=== PATIENT | male | born 1945 | race American Indian/Alaskan Native ===

== ENCOUNTER 2016-12-12 05:42 | Inpatient (IN) | payer MEDICARE ==
[2016-12-12] MEDS ORDERED: ATIVAN ONE (06:09)
[2016-12-12] MEDS ORDERED: ATIVAN IV ONE (06:36)
--- NOTE | 2016-12-12 06:56 | Cat Scan Report ---
FINAL REPORT PROCEDURE: CT HEAD/BRAIN WO CON TECHNIQUE: Computerized tomography of the head was performed without contrast material. HISTORY: Seizure COMPARISON: 08/06/2016 FINDINGS: Skull and scalp: Normal. Paranasal sinuses: Normal. Ventricles and subarachnoid spaces: Normal. Cerebrum: No evidence of hemorrhage, acute infarction or mass. Moderate atrophy and periventricular deep white matter changes. There is an area of encephalomalacia in the posterior occipital lobe on the left, this is consistent with previous infarction.. Cerebellum and brainstem: There is a small 4 millimeter area of hypoattenuation in the left libby consistent with previous lacunar infarction.. Vasculature: Normal. Comments: Findings have not changed since prior exam.. IMPRESSION: There is no evidence of an acute intracranial hemorrhage, hematoma or infarction. Moderate atrophy and periventricular deep white matter changes are noted. 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 There is an old lacunar infarction of the left libby.
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
[2016-12-12 07:00] LABS: Urine Drugs of Abuse Note Disclamer
[2016-12-12 07:24] LABS: Bilirubin,Urine NEG (Negative); Blood,Urine NEG (Negative); Granular Casts,Urine 11 /LPF; Ketones,Urine NEG (Negative); Leukocyte Esterase,Urine NEG (Negative); Mucus,Urine FEW /HPF; Nitrite,Urine NEG (Negative); Sperm,Urine 1+ /HPF (NP); Urobilinogen,Urine < 2.0 mg/dL (<2.0)
[2016-12-12 07:26] LABS: Basophils % (Auto) 0.4 % (0.0-1.8); Eosinophils % (Auto) 0.5 % (0.0-4.3); Hematocrit 40.5 % (35.5-45.6); Mean Corpuscular HGB Conc 32 % (32-34); Mean Corpuscular Hemoglobin 28 pg (28-32); Mean Corpuscular Volume 88 fl (84-94); Platelet Count 250 K/mm3 (140-440); Red Blood Count 4.62 M/mm3 (3.65-5.03); Red Cell Distribution Width 15.1 % (13.2-15.2); White Blood Count 8.7 K/mm3 (4.5-11.0)
[2016-12-12 07:30] LABS: BUN/Creatinine Ratio 7.33; Calcium 9.8 mg/dL (8.4-10.2); Chloride 96.3 mmol/L (98-107); Potassium 4.9 mmol/L (3.6-5.0)
[2016-12-12] MEDS ORDERED: KEPPRA 1,000 MG/NS 0.75% 100ML 1,000 MG/100 ML BAG IV ONE (07:47)
--- NOTE | 2016-12-12 08:09 | Admit Criteria Form ---
Admission Criteria Documentation: SEIZURE Clinical Indications for Admission to Inpatient Care (Place 'X' for any and all applicable criteria): Admission is indicated for seizure and ANY ONE of the following(1)(2)(3)(4)(5): [X ]I. Inpatient admission required rather than observation care (Also use Seizure: Observation Care Criteria as appropriate) because of ANY ONE of the following: [ X]a) Altered mental status that is severe or persistent [ ]b) New focal neurologic deficit that is severe or persistent [ ]c) Metabolic disorder (eg, hypoglycemia, hyponatremia) that is severe or persistent [ ]d) Recurrent seizure [ ]e) Outpatient antiseizure regimen cannot be established (eg , patient cannot tolerate medication, initiation requires inpatient care) [ ]f) Need for ongoing intravenous infusion of antiseizure medication [ ]g) Cardiac arrhythmias of immediate concern [ ]h) Cerebral bleeding, hydrocephalus, or vasospasm monitoring (14) [ ]i) Increased intracranial pressure or cerebral edema monitoring (15) [ ]j) Other treatment or monitoring requiring inpatient admission [ ]II. Status epilepticus [A] or repetitive seizures not controlled with emergent treatment (6)(8) [ ]III. Brain disorder (eg, tumor, edema, and hydrocephalus) that requiring monitoring or intervention available only at inpatient level of care. [ ]IV. Brain insult (eg, severe trauma, stroke, drug toxicity, or withdrawal) that requires monitoring or intervention available only at inpatient level of care (10)(11) Extended stay beyond goal length of stay may be needed for (22) [ ]a) Complications of status epilepticus [ ]b) Refractory status epilepticus [ ]c) Etiology-specific therapy for conditions such as MATERIAL CONTROL MANAGER infection, head injury,eclampsia, severe metabolic abnormalities, and brain tumor [ ]d) Residual neurologic damage, [ ]e) Initiation of significant change to anticonvulsant treatment [ ]f) Older patients (65 years or older) [ ]g) Patient requiring intubation (eg, to protect airway) The original [employer] [facility] content created by [employer] has been revised. The portions of the content which have been revised are identified through the use of italic text or in bold, and [facility] [employer] has neither reviewed nor approved the modified material. All other unmodified content is copyright [facility] [employer]. Please see references footnoted in the original [facility] edition 2016 Admission Criteria Met: Yes
[2016-12-12] MEDS ORDERED: KEPPRA 500 MG in D5W 100 ML IV ONE (11:11)
[2016-12-12] MEDS ORDERED: REGLAN PO PRN (11:12)
[2016-12-12] MEDS ORDERED: TYLENOL PO PRN (11:12)
[2016-12-12] MEDS ORDERED: SODIUM CHLORIDE FLUSH SYRINGE 10 ML IV PRN (11:12)
[2016-12-12] MEDS ORDERED: DULCOLAX PR PRN (11:12)
[2016-12-12] MEDS ORDERED: APRESOLINE IV PRN (11:12)
[2016-12-12] MEDS ORDERED: ZOFRAN IV PRN (11:12)
[2016-12-12] MEDS ORDERED: PHENERGAN PR PRN (11:12)
[2016-12-12] MEDS ORDERED: MILK OF MAGNESIA PO PRN (11:12)
[2016-12-12] MEDS ORDERED: NACL 0.9% 1000 ML 1,000 ML IV SCH (12:00)
--- NOTE | 2016-12-12 15:05 | History and Physical Report ---
History of Present Illness Date of admission: 12/12/16 08:09 Chief complaint: 71-year-old man with a past medical history of multiple strokes who resides at [facility] who was cents for new onset seizure. Of note he was witnessed by [facility] staff to have seizure descended last thing probably up to 25 minutes at a time the EMS arrived he was post ictal he was then brought to the ER and he had a second seizure lasting about 30 seconds in the ER as witnessed by the ER staff. Since being here he has been lethargic drowsy , nonverbal, has been gurgling. Past History Past Medical History: other (hypertension, coronary artery disease, history of nontraumatic subarachnoid hemorrhage in the past, history of multiple strokes) Past Surgical History: Other (exploratory laparoscopy) Social history: no significant social history Family history: no significant family history Medications and Allergies Allergies Allergy/AdvReac Type Severity Reaction Status Date / Time No Known Allergies Allergy Unverified 08/06/16 11:38 Home Medications Medication Instructions Recorded Confirmed Last Taken Type Aspirin [Aspirin TAB] 325 mg PO QDAY 08/06/16 12/12/16 1 Day Ago History 325 amLODIPine [Norvasc] 5 mg PO DAILY 08/06/16 12/12/16 1 Day Ago History 5 AtorvaSTATin [Lipitor] 40 mg PO HS #30 tablet 08/08/16 12/12/16 1 Day Ago Rx 40 Active Meds: Active Medications Acetaminophen (Tylenol) 650 mg PO Q4H PRN PRN Reason: Pain, Mild (1-3) Bisacodyl (Dulcolax) 10 mg [place] QDAY PRN PRN Reason: Constipation Hydralazine HCl (Apresoline) 5 mg IV Q6H PRN PRN Reason: Keep SBP between 160-185 mm Hg Sodium Chloride (Nacl 0.9% 1000 Ml) 1,000 mls @ 75 mls/hr IV DIRECT TONY Last Admin: 12/12/16 12:02 Dose: 75 mls/hr Levetiracetam 500 mg/ Dextrose 105 mls @ 400 mls/hr IV Q12HR TONY Magnesium Hydroxide (Milk Of Magnesia) 30 ml PO Q4H PRN PRN Reason: Constipation Metoclopramide HCl (Reglan) 10 mg PO Q6H PRN PRN Reason: Nausea And Vomiting Ondansetron HCl (Zofran) 4 mg IV Q8H PRN PRN Reason: N/V unrelieved by Reglan Promethazine HCl (Phenergan) 25 mg [place] Q6H PRN PRN Reason: Nausea And Vomiting Simvastatin (Zocor) 20 mg PO QHS TONY Sodium Chloride (Sodium Chloride Flush Syringe 10 Ml) 10 ml IV PRN PRN PRN Reason: LINE FLUSH Review of Systems ROS unobtainable: due to mental status Exam - Physical Exam Narrative exam: General: Appears ill HEENT: MMM, EOMI cardiac: S1-S2 heard lungs: Occasional rhonchi abdomen: soft, nontender, nondistended bowel sounds positive extremities: no edema clubbing or cyanosis Skin: no rash or lesion Neuro: Patient opens eyes to voice, but does not obey any commands he is not moving his extremities, he is gurgling, nonverbal, lethargic - Constitutional Vitals: Temp Pulse Resp BP Pulse Ox 97.8 F 82 24 102/54 99 12/12/16 05:55 12/12/16 06:02 12/12/16 06:02 12/12/16 06:02 12/12/16 06:02 Results - Labs CBC & Chem 7: 12/12/16 06:59 12/12/16 06:59 Labs: Laboratory Last Values WBC 8.7 K/mm3 (4.5-11.0) 12/12/16 06:59 RBC 4.62 M/mm3 (3.65-5.03) 12/12/16 06:59 Hgb 13.0 gm/dl (11.8-15.2) 12/12/16 06:59 Hct 40.5 % (35.5-45.6) 12/12/16 06:59 MCV 88 fl (84-94) 12/12/16 06:59 MCH 28 pg (28-32) 12/12/16 06:59 MCHC 32 % (32-34) 12/12/16 06:59 RDW 15.1 % (13.2-15.2) 12/12/16 06:59 Plt Count 250 K/mm3 (140-440) 12/12/16 06:59 Lymph % (Auto) 15.0 % (13.4-35.0) 12/12/16 06:59 [place] % (Auto) 5.7 % (0.0-7.3) 12/12/16 06:59 Eos % (Auto) 0.5 % (0.0-4.3) 12/12/16 06:59 Baso % (Auto) 0.4 % (0.0-1.8) 12/12/16 06:59 Lymph # 1.3 K/mm3 (1.2-5.4) 12/12/16 06:59 [facility] # 0.5 K/mm3 (0.0-0.8) 12/12/16 06:59 Eos # 0.0 K/mm3 (0.0-0.4) 12/12/16 06:59 Baso # 0.0 K/mm3 (0.0-0.1) 12/12/16 06:59 Seg Neutrophils % 78.4 % (40.0-70.0) H 12/12/16 06:59 Seg Neutrophils # 6.8 K/mm3 (1.8-7.7) 12/12/16 06:59 Sodium 137 mmol/L (137-145) 12/12/16 06:59 Potassium 4.9 mmol/L (3.6-5.0) 12/12/16 06:59 Chloride 96.3 mmol/L (98-107) L 12/12/16 06:59 Carbon Dioxide 13 mmol/L (22-30) L 12/12/16 06:59 Anion Gap 33 mmol/L 12/12/16 06:59 BUN 11 mg/dL (9-20) 12/12/16 06:59 Creatinine 1.5 mg/dL (0.8-1.5) 12/12/16 06:59 Estimated GFR 56 ml/min 12/12/16 06:59 BUN/Creatinine Ratio 7.33 % 12/12/16 06:59 Glucose 171 mg/dL (75-100) H 12/12/16 06:59 Calcium 9.8 mg/dL (8.4-10.2) 12/12/16 06:59 Urine Color Yellow (Yellow) 12/12/16 06:57 Urine Turbidity Clear (Clear) 12/12/16 06:57 Urine pH 6.0 (5.0-7.0) 12/12/16 06:57 Ur Specific [place] 1.011 (1.003-1.030) 12/12/16 06:57 Urine Protein 30 mg/dl mg/dL (Negative) 12/12/16 06:57 Urine Glucose (UA) Neg mg/dL (Negative) 12/12/16 06:57 Urine Ketones Neg mg/dL (Negative) 12/12/16 06:57 Urine Blood Neg (Negative) 12/12/16 06:57 Urine Nitrite Neg (Negative) 12/12/16 06:57 Urine Bilirubin Neg (Negative) 12/12/16 06:57 Urine Urobilinogen < 2.0 mg/dL (<2.0) 12/12/16 06:57 Ur Leukocyte Esterase Neg (Negative) 12/12/16 06:57 Urine WBC (Auto) 1.0 /HPF (0.0-6.0) 12/12/16 06:57 Urine RBC (Auto) 3.0 /HPF (0.0-6.0) 12/12/16 06:57 Hyaline Casts 16 /LPF 12/12/16 06:57 Granular Casts 11 /LPF 12/12/16 06:57 Urine Mucus Few /HPF 12/12/16 06:57 Urine Sperm 1+ /HPF (TOP COLLAR MAKER) 12/12/16 06:57 Urine Opiates Screen Presumptive negative 12/12/16 06:57 Urine Methadone Screen Presumptive negative 12/12/16 06:57 Ur Barbiturates Screen Presumptive negative 12/12/16 06:57 Ur Phencyclidine Scrn Presumptive negative 12/12/16 06:57 Ur Amphetamines Screen Presumptive negative 12/12/16 06:57 U Benzodiazepines Scrn Presumptive negative 12/12/16 06:57 Urine Cocaine Screen Presumptive negative 12/12/16 06:57 U Marijuana (THC) Screen Presumptive negative 12/12/16 06:57 Drugs of Abuse Note Disclamer 12/12/16 06:57 - Imaging and Cardiology CT Scan - head: image reviewed (no new acute abnormality seen) Assessment and Plan Assessment and plan: 71-year-old man who presents with new-onset seizures, and altered mental status 1. Status epilepticus Status post Ativan and Keppra. We'll continue Keppra twice a day. Ordered for EEG and MRI, neurology has been consulted 2. Toxic metabolic encephalopathy Mentation may be due to post ictal period, however given past medical history of strokes, and will be prudent to rule out an acute CVA. Follow-up MRI reports , neurology has been consulted, 3. Hypertension Allow permissive hypertension as patient is being worked up for stroke 4. Hyperlipidemia We'll continue statin when patient has cleared swallow evaluation,
--- NOTE | 2016-12-12 15:13 | Consultation ---
History of Present Illness Consult date: 12/12/16 Requesting physician: LENNY VAUGHAN Reason for Consult: seizure Chief complaint: AMS limits direct hx History of present illness: 71-year-old man with a past medical history of multiple strokes ? residual deficit but no Hx seizure brought to ED 12/12 early AM for witnessed suspected seizure. Duration reportedly 25 minutes but at a time the EMS arrived he was post ictal he was then brought to the ER and he had a second seizure lasting about 30 seconds in the ER as witnessed by the ER staff. AMS is constant but waxing and waning. There are no clear aggravating, relieving or temporal factors. Severity is such to limit consciousness with events. Past History Past Medical History: CAD, stroke, other (hypertension, coronary artery disease , history of nontraumatic subarachnoid hemorrhage in the past, history of multiple strokes) Past Surgical History: Other (exploratory laparoscopy) Social history: no significant social history, other (AMS limits) Family history: no significant family history, other (AMs limits) Medications and Allergies Allergies Allergy/AdvReac Type Severity Reaction Status Date / Time No Known Allergies Allergy Unverified 08/06/16 11:38 Home Medications Medication Instructions Recorded Confirmed Last Taken Type Aspirin [Aspirin TAB] 325 mg PO QDAY 08/06/16 12/12/16 1 Day Ago History 325 amLODIPine [Norvasc] 5 mg PO DAILY 08/06/16 12/12/16 1 Day Ago History 5 AtorvaSTATin [Lipitor] 40 mg PO HS #30 tablet 08/08/16 12/12/16 1 Day Ago Rx 40 Active Meds: Active Medications Acetaminophen (Tylenol) 650 mg PO Q4H PRN PRN Reason: Pain, Mild (1-3) Bisacodyl (Dulcolax) 10 mg [place] QDAY PRN PRN Reason: Constipation Hydralazine HCl (Apresoline) 5 mg IV Q6H PRN PRN Reason: Keep SBP between 160-185 mm Hg Sodium Chloride (Nacl 0.9% 1000 Ml) 1,000 mls @ 75 mls/hr IV DIRECT TONY Last Admin: 12/12/16 12:02 Dose: 75 mls/hr Levetiracetam 500 mg/ Dextrose 105 mls @ 400 mls/hr IV Q12HR TONY Magnesium Hydroxide (Milk Of Magnesia) 30 ml PO Q4H PRN PRN Reason: Constipation Metoclopramide HCl (Reglan) 10 mg PO Q6H PRN PRN Reason: Nausea And Vomiting Ondansetron HCl (Zofran) 4 mg IV Q8H PRN PRN Reason: N/V unrelieved by Reglan Promethazine HCl (Phenergan) 25 mg [place] Q6H PRN PRN Reason: Nausea And Vomiting Simvastatin (Zocor) 20 mg PO QHS TONY Sodium Chloride (Sodium Chloride Flush Syringe 10 Ml) 10 ml IV PRN PRN PRN Reason: LINE FLUSH Review of Systems ROS unobtainable: due to mental status Physical Examination - Vital Signs Vital Signs: Vital Signs Temp Pulse Resp BP Pulse Ox 97.8 F 77 22 102/54 97 12/12/16 05:55 12/12/16 05:55 12/12/16 05:55 12/12/16 05:55 12/12/16 05:55 - Constitutional General appearance: uncomfortable, acutely ill, chronically ill, older than stated age - EENT EENT: Present: ATNC, PERRL, mucous membranes dry, hearing intact, vision intact - Respiratory Respiratory: Present: chest non-tender, normal breath sounds, no respiratory distress - Cardiovascular Cardiovascular: Present: regular rate Extremities: Present: no peripheral edema bilatateraly, no clubbing, cyanosis, no inflammation, no ischemia or petechiae - Gastrointestinal Gastrointestinal: Present: soft, non-distended - Integumentary Integumentary: Present: normal - Neurologic Cranial nerve examination: PERRL, EOMI, V1/V2/V3 grossly intact, face symmetric , tongue midline, intact, intact shoulder shrug, intact cough reflex, Intact Vestibulo-ocular r, intact corneal reflex, normal palatal elevation Speech examination: other (slurred, follows commands, drowsystuporous, poor concentration) Sensorimotor examination: intact Motor examination - right side: 11/27: biceps, triceps, wrist flexion, wrist extension, research affiliate, hip flexors, knee extensors, dorsiflexion, toe extension (EHL) , plantarflexion Motor examination - left side: 4: biceps, triceps, wrist flexion, wrist extension, research affiliate, hip flexors, knee extensors, dorsiflexion, toe extension (EHL) , plantarflexion Detailed sensory examination: intact, light touch, pain Reflex and gait examination: intact Reflexes: 0: ankle, 2+: bicep, knee, tricep - Musculoskeletal Musculoskeletal: Present: no fluid collection, no pain, normal range of motion - Psychiatric Psychiatric: Present: cooperative, other (drowsy) Results - Laboratory Findings CBC and BMP: 12/12/16 06:59 12/12/16 06:59 Assessment and Plan 71 YO M Hx multiple prior strokes ? details/residual deficit but no Hx seizure brought to ED 12/12 early AM for witnessed reported GTC x 25 mins but then post ictal and then recurrent 30 sec GTC in ED. On my exam pt post-ictal w/ drowsy-stupor but following commands oriented to self w/o further recurrence. Unclear etiology for new onset seizure. 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 Plan and Recommendation: 1. Telemetry bed w/ Q4 hour neuro checks & Sz precautions 2. Brain imaging: MRI Brain +/- John Seizure Protocol 3. Routine awake and drowsy EEG 4. Labs: Serum/Urine Tox, UA/UCx, Electrolytes especially Na, Ca, Mg, and Glucose, TSH/Vit B12/Ammonia and correct as necessary 5. Cont Infectious work up/medical management for UTI, PNA, cellulitis, bacteremia, etc. 6. Avoid hyponatremia, hypo/hyper-calcemia, hypo/hyperglycemia, acidosis, hypoxia/hypoxemia, hypercarbia/hypercapnia 7. Avoid institution of any psychoactive medications (e.g. antihistamines, anticholinergics, BZD, hypnotics, opiates) as able unless low doses of low potency antipsychotic needed for behavioral issues complicating medical care 8. AED therapy: Continue Keppra 5000mg BID 9. Avoid meds that can lower sz threshold e.g. Tramadol, fluroquinolones, carbapenems 10. Given unknown EtOH Hx would supplement Thiamine, Folate and B12 11. Pt advised of [place] driving regulations: report date of presumed Seizure/ unexplained loss of consciousness/awareness spell to [facility], refrain from operating a motor vehicle for 6 months after this date, and avoid unsupervised activity particularly around water or heights 12. Neurologically clear for discharge once resolved fully to baseline w/o recurrent seizure for 24 hrs.
--- NOTE | 2016-12-12 15:34 | XRay Report ---
AP CHEST: HISTORY: Short of breath AP view of the chest demonstrates a normal mediastinal and cardiac contour with clear lungs and normal bony and soft tissue structures. IMPRESSION: Unremarkable AP chest.
[2016-12-12] MEDS: ZOCOR PO SCH (23:45)
[2016-12-12] MEDS: KEPPRA 500 MG in D5W 100 ML IV SCH (23:59)
[2016-12-13] MEDS: KEPPRA 500 MG in D5W 100 ML IV SCH ×2 (11:01→21:37)
--- NOTE | 2016-12-13 11:23 | Electroencephalogram Report ---
Electroencephalogram EEG Date of exam: 12/12/16 History: 71 YO M hx stroke p/w seizure x 2. Impression: Abnormal awake and sleep 20 minute routine EEG. There are findings to suggest mild-moderate nonspecific cerebral dysfunction. There are no findings to suggest cortical irritability, epileptiform discharges or electrographic seizures. Description: The waking background shows an inappropriate organization with poorly-defined anterior posterior voltage and frequency gradients. Posteriorly, there is a poorly-developed mixed theta and alpha frequency background which is symmetrical and bilaterally reactive. There is no clear variability. There are symmetric appearing poorly formed sleep spindles and K-complexes. . Throughout, the recording there are no epileptiform abnormalities, focal or lateralizing features, or significant interhemispheric findings. Interpretation: This is a digitally acquired 21-channel electroencephalogram. Both bipolar and referential montages were used in interpretation. Electrodes were placed in accordance with the International 10-20 system.
--- NOTE | 2016-12-13 11:26 | Progress Note ---
Assessment and Plan 71 YO M Hx multiple prior strokes ? details/residual deficit as he is a poor historian but no Hx seizure brought to ED 12/12 early AM for witnessed reported GTC x 25 mins but then post ictal and then recurrent 30 sec GTC in ED. On my exam initial exam pt post-ictal w/ drowsy-stupor but following commands oriented to self by nodding. On 12/13 pt awake alert oriented and back to baseline w/ R visual field deficit and R sided weakness which he confirms is baseline. No further Sz recurrence. Unclear etiology for new onset seizure. 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 EEG mild-mod nonspecific diffuse cerebral dysfunction but no IEDs/Sz Plan and Recommendation: 1. Telemetry bed w/ Q4 hour neuro checks & Sz precautions 2. Brain imaging: MRI Brain +/- John Seizure Protocol 3. Labs: Serum/Urine Tox, UA/UCx, Electrolytes especially Na, Ca, Mg, and Glucose, TSH/Vit B12/Ammonia and correct as necessary 4. Cont Infectious work up/medical management for UTI, PNA, cellulitis, bacteremia, etc. 5. Avoid hyponatremia, hypo/hyper-calcemia, hypo/hyperglycemia, acidosis, hypoxia/hypoxemia, hypercarbia/hypercapnia 6. Avoid institution of any psychoactive medications (e.g. antihistamines, anticholinergics, BZD, hypnotics, opiates) as able unless low doses of low potency antipsychotic needed for behavioral issues complicating medical care 7. AED therapy: Continue Keppra 500mg BID 8. Avoid meds that can lower sz threshold e.g. Tramadol, fluroquinolones, carbapenems 9. Given unknown EtOH Hx would supplement Thiamine, Folate and B12 10. Pt advised of [place] driving regulations: report date of presumed Seizure/ unexplained loss of consciousness/awareness spell to [facility], refrain from operating a motor vehicle for 6 months after this date, and avoid unsupervised activity particularly around water or heights 11. Neurologically clear for discharge if continues to be @ baseline w/o recurrent seizure and MRI Brain w/o acute findings. Subjective Date of service: 12/13/16 Principal diagnosis: seizure, history stroke Interval history: awake, alert, no recurrent seizure, pt is a poor historian Objective - General Apperance Constitutional: comfortable, chronically ill, older than stated age - EENT EENT: ATNC, PERRL, mucous membranes moist, hearing intact, vision intact - Respiratory Respiratory: chest non-tender, normal breath sounds, no respiratory distress - Cardiovascular Cardiovascular: regular rate Extremities: no peripheral edema bilat, no clubbing, cyanosis, no inflammation, no ischemia or petechiae - Gastrointestinal Gastrointestinal: normoactive bowel sounds, soft, non-distended - Integumentary Integumentary: normal - Neurologic Cranial nerve examination: PERRL, EOMI, V1/V2/V3 grossly intact, tongue midline , intact, intact shoulder shrug, intact cough reflex, Intact Vestibulo-ocular r , intact corneal reflex, facial droop (slight on R), other (R visual field deficit) Speech examination: intact Motor examination - right side: 3/5: biceps, triceps, wrist flexion, wrist extension, window glass installer, 4/5: hip flexors, knee extensors, dorsiflexion, toe extension ( EHL), plantarflexion Motor examination - left side: 5/5: biceps, triceps, wrist flexion, wrist extension, window glass installer, hip flexors, knee extensors, dorsiflexion, toe extension (EHL) , plantarflexion Detailed sensory examination: intact, light touch, temperature Reflex and gait examination: Babinski's sign (on R) Reflexes: 0: ankle, 3+: bicep (on R), knee, tricep - Musculoskeletal Musculoskeletal: no fluid collection, no pain, normal range of motion - Psychiatric Psychiatric: mood/affect appropriate, cooperative - Laboratory Findings CBC and BMP: 12/12/16 06:59 12/12/16 06:59
[2016-12-13] MEDS ORDERED: PNEUMOVAX 23 IM ONE (12:00)
--- NOTE | 2016-12-13 14:13 | Magnetic Resonance Report ---
MRI scan of brain: History: Stroke. Technique: Multiplanar, multisequence images were obtained without contrast injection. Findings: No evidence of restricted diffusion. Chronic left occipital infarct without interval change. No acute ischemia or hemorrhage. Periventricular area of hyperintensity with subcortical areas of hyperintensity suggestive of small vessel ischemic changes. Chronic lacunar infarct left cerebellum. No extra-axial fluid collection. Normal sinuses and mastoid air cells. Impression: No acute intracranial abnormality. Additional findings as detailed above.
--- NOTE | 2016-12-13 14:21 | Magnetic Resonance Report ---
MRA of brain: History: Stroke. Findings: There is atherosclerotic changes identified with narrowing of right and left middle cerebral arteries. No hemodynamically significant stenosis. No evidence of occlusion or aneurysm. Codominant vertebral artery with narrowing of the proximal basilar artery and adjacent vertebral arteries. Communicating vessels appears unremarkable. Impression: No hemodynamically significant stenosis or evidence of occlusion.
--- NOTE | 2016-12-13 14:44 | Progress Note ---
Assessment and Plan Assessment and plan: 71-year-old -[place] male with history of stroke presented to the emergency department for complaints of seizure episode, he had also with just generalized tonic-clonic seizures in the emergency department and after this the patient was postictal and confused. Status epilepticus - Patient is started on Keppra, no seizure episode after admission. EEG showed no active seizure. - Neurology consult appreciated - MRI and MRA showed no significant abnormality Toxic metabolic encephalopathy - Likely postictal - Patient is alert and oriented today Hypertension - Continue home medications Hyperlipidemia Continue his statin Prophylaxis Lovenox Disposition - Patient will be discharged tomorrow after monitoring him overnight History Interval history: Patient was seen and evaluated this morning, patient is alert and oriented. He has residual left leg weakness from his previous stroke. No seizure episode after admission. Hospitalist Physical - Physical exam Narrative exam: Not in cardiopulmonary distress. The patient appeared well nourished and normally developed. Vital signs as documented. Head exam is unremarkable. No scleral icterus . Neck is without jugular venous distension, thyromegaly, or carotid bruits. Lungs are clear to auscultation. Cardiac exam reveals regular rate and Rhythm. First and second heart sounds normal. No murmurs, rubs or gallops. Abdominal exam reveals normal bowel sounds, no masses, no organomegaly and no aortic enlargement. Extremities are nonedematous and both femoral and pedal pulses are normal. 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 Mild weakness of the right lower extremity compared to the left. - Constitutional Vitals: Temp Pulse Resp BP Pulse Ox 97.1 F L 87 20 144/68 99 12/13/16 08:00 12/13/16 08:00 12/13/16 08:00 12/13/16 08:00 12/12/16 06:02 Results - Labs CBC & Chem 7: 12/12/16 06:59 12/12/16 06:59 Labs: Laboratory Last Values WBC 8.7 K/mm3 (4.5-11.0) 12/12/16 06:59 RBC 4.62 M/mm3 (3.65-5.03) 12/12/16 06:59 Hgb 13.0 gm/dl (11.8-15.2) 12/12/16 06:59 Hct 40.5 % (35.5-45.6) 12/12/16 06:59 MCV 88 fl (84-94) 12/12/16 06:59 MCH 28 pg (28-32) 12/12/16 06:59 MCHC 32 % (32-34) 12/12/16 06:59 RDW 15.1 % (13.2-15.2) 12/12/16 06:59 Plt Count 250 K/mm3 (140-440) 12/12/16 06:59 Lymph % (Auto) 15.0 % (13.4-35.0) 12/12/16 06:59 [place] % (Auto) 5.7 % (0.0-7.3) 12/12/16 06:59 Eos % (Auto) 0.5 % (0.0-4.3) 12/12/16 06:59 Baso % (Auto) 0.4 % (0.0-1.8) 12/12/16 06:59 Lymph # 1.3 K/mm3 (1.2-5.4) 12/12/16 06:59 [place] # 0.5 K/mm3 (0.0-0.8) 12/12/16 06:59 Eos # 0.0 K/mm3 (0.0-0.4) 12/12/16 06:59 Baso # 0.0 K/mm3 (0.0-0.1) 12/12/16 06:59 Seg Neutrophils % 78.4 % (40.0-70.0) H 12/12/16 06:59 Seg Neutrophils # 6.8 K/mm3 (1.8-7.7) 12/12/16 06:59 Sodium 137 mmol/L (137-145) 12/12/16 06:59 Potassium 4.9 mmol/L (3.6-5.0) 12/12/16 06:59 Chloride 96.3 mmol/L (98-107) L 12/12/16 06:59 Carbon Dioxide 13 mmol/L (22-30) L 12/12/16 06:59 Anion Gap 33 mmol/L 12/12/16 06:59 BUN 11 mg/dL (9-20) 12/12/16 06:59 Creatinine 1.5 mg/dL (0.8-1.5) 12/12/16 06:59 Estimated GFR 56 ml/min 12/12/16 06:59 BUN/Creatinine Ratio 7.33 % 12/12/16 06:59 Glucose 171 mg/dL (75-100) H 12/12/16 06:59 Calcium 9.8 mg/dL (8.4-10.2) 12/12/16 06:59 Triglycerides 47 mg/dL (2-149) 12/13/16 04:35 Cholesterol 123 mg/dL (50-199) 12/13/16 04:35 LDL Cholesterol Direct 59 mg/dL (50-130) 12/13/16 04:35 HDL Cholesterol 55 mg/dL (40-59) 12/13/16 04:35 Cholesterol/HDL Ratio 2.23 % 12/13/16 04:35 Urine Color Yellow (Yellow) 12/12/16 06:57 Urine Turbidity Clear (Clear) 12/12/16 06:57 Urine pH 6.0 (5.0-7.0) 12/12/16 06:57 Ur Specific [place] 1.011 (1.003-1.030) 12/12/16 06:57 Urine Protein 30 mg/dl mg/dL (Negative) 12/12/16 06:57 Urine Glucose (UA) Neg mg/dL (Negative) 12/12/16 06:57 Urine Ketones Neg mg/dL (Negative) 12/12/16 06:57 Urine Blood Neg (Negative) 12/12/16 06:57 Urine Nitrite Neg (Negative) 12/12/16 06:57 Urine Bilirubin Neg (Negative) 12/12/16 06:57 Urine Urobilinogen < 2.0 mg/dL (<2.0) 12/12/16 06:57 Ur Leukocyte Esterase Neg (Negative) 12/12/16 06:57 Urine WBC (Auto) 1.0 /HPF (0.0-6.0) 12/12/16 06:57 Urine RBC (Auto) 3.0 /HPF (0.0-6.0) 12/12/16 06:57 Hyaline Casts 16 /LPF 12/12/16 06:57 Granular Casts 11 /LPF 12/12/16 06:57 Urine Mucus Few /HPF 12/12/16 06:57 Urine Sperm 1+ /HPF (REINFORCED IRONWORKER) 12/12/16 06:57 Urine Opiates Screen Presumptive negative 12/12/16 06:57 Urine Methadone Screen Presumptive negative 12/12/16 06:57 Ur Barbiturates Screen Presumptive negative 12/12/16 06:57 Ur Phencyclidine Scrn Presumptive negative 12/12/16 06:57 Ur Amphetamines Screen Presumptive negative 12/12/16 06:57 U Benzodiazepines Scrn Presumptive negative 12/12/16 06:57 Urine Cocaine Screen Presumptive negative 12/12/16 06:57 U Marijuana (THC) Screen Presumptive negative 12/12/16 06:57 Drugs of Abuse Note Disclamer 12/12/16 06:57 - Imaging and Cardiology MRI - head: image reviewed (no acute intracranial finding)
[2016-12-13] MEDS: ZOCOR PO SCH (21:37)
[2016-12-14 05:47] LABS: Basophils % (Auto) 0.4 % (0.0-1.8); Eosinophils % (Auto) 0.1 % (0.0-4.3); Hematocrit 36.6 % (35.5-45.6); Hemoglobin 11.9 gm/dl (11.8-15.2); Mean Corpuscular HGB Conc 33 % (32-34); Mean Corpuscular Hemoglobin 28 pg (28-32); Mean Corpuscular Volume 86 fl (84-94); Platelet Count 219 K/mm3 (140-440); Red Blood Count 4.25 M/mm3 (3.65-5.03); Red Cell Distribution Width 14.8 % (13.2-15.2)
[2016-12-14 06:05] LABS: BUN/Creatinine Ratio 11.66; Blood Urea Nitrogen 14 mg/dL (9-20); Calcium 8.7 mg/dL (8.4-10.2); Carbon Dioxide 25 mmol/L (22-30); Chloride 104.5 mmol/L (98-107); Glucose 107 mg/dL (75-100); Potassium 4.5 mmol/L (3.6-5.0); Sodium 143 mmol/L (137-145)
[2016-12-14 06:15] LABS: Anion Gap 18 mmol/L
--- NOTE | 2016-12-14 11:33 | Progress Note ---
Assessment and Plan Assessment and plan: 71-year-old -[place]isian male with history of stroke presented to the emergency department for complaints of seizure episode, he had also with just generalized tonic-clonic seizures in the emergency department and after this the patient was postictal and confused. Status epilepticus - Patient is started on Keppra, no seizure episode after admission. EEG showed no active seizure. - Neurology consult appreciated - MRI and MRA showed no significant abnormality Toxic metabolic encephalopathy/delirium - Likely postictal - Patient is confused Fall - on fall precaution - close follow up Hypertension - Continue home medications Hyperlipidemia Continue his statin Prophylaxis Lovenox Disposition - Will monitor him hence the patient is confused and at risk of fall History Interval history: Patient was seen and evaluated this morning, patient was confused and aggressive towards the nursing staff. He failed out of the bed. Saw the patient immediately and didn't hit his bed. doesn't need further work up. Hospitalist Physical - Physical exam Narrative exam: Not in cardiopulmonary distress. The patient appeared well nourished and normally developed. Vital signs as documented. Head exam is unremarkable. No scleral icterus . Neck is without jugular venous distension, thyromegaly, or carotid bruits. Lungs are clear to auscultation. Cardiac exam reveals regular rate and Rhythm. First and second heart sounds normal. No murmurs, rubs or gallops. Abdominal exam reveals normal bowel sounds, no masses, no organomegaly and no aortic enlargement. Extremities are nonedematous and both femoral and pedal pulses are normal. 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 Mild weakness of the right lower extremity compared to the left. - Constitutional Vitals: Temp Pulse Resp BP Pulse Ox 98 F 79 18 133/68 98 12/14/16 08:00 12/14/16 08:00 12/14/16 00:44 12/14/16 08:00 12/14/16 08:00 Results - Labs CBC & Chem 7: 12/14/16 05:11 12/14/16 05:11 Labs: Laboratory Last Values WBC 9.0 K/mm3 (4.5-11.0) 12/14/16 05:11 RBC 4.25 M/mm3 (3.65-5.03) 12/14/16 05:11 Hgb 11.9 gm/dl (11.8-15.2) 12/14/16 05:11 Hct 36.6 % (35.5-45.6) 12/14/16 05:11 MCV 86 fl (84-94) 12/14/16 05:11 MCH 28 pg (28-32) 12/14/16 05:11 MCHC 33 % (32-34) 12/14/16 05:11 RDW 14.8 % (13.2-15.2) 12/14/16 05:11 Plt Count 219 K/mm3 (140-440) 12/14/16 05:11 Lymph % (Auto) 13.8 % (13.4-35.0) 12/14/16 05:11 [place] % (Auto) 10.5 % (0.0-7.3) H 12/14/16 05:11 Eos % (Auto) 0.1 % (0.0-4.3) 12/14/16 05:11 Baso % (Auto) 0.4 % (0.0-1.8) 12/14/16 05:11 Lymph # 1.2 K/mm3 (1.2-5.4) 12/14/16 05:11 [place] # 0.9 K/mm3 (0.0-0.8) H 12/14/16 05:11 Eos # 0.0 K/mm3 (0.0-0.4) 12/14/16 05:11 Baso # 0.0 K/mm3 (0.0-0.1) 12/14/16 05:11 Seg Neutrophils % 75.2 % (40.0-70.0) H 12/14/16 05:11 Seg Neutrophils # 6.8 K/mm3 (1.8-7.7) 12/14/16 05:11 Sodium 143 mmol/L (137-145) 12/14/16 05:11 Potassium 4.5 mmol/L (3.6-5.0) 12/14/16 05:11 Chloride 104.5 mmol/L (98-107) 12/14/16 05:11 Carbon Dioxide 25 mmol/L (22-30) D 12/14/16 05:11 Anion Gap 18 mmol/L 12/14/16 05:11 BUN 14 mg/dL (9-20) 12/14/16 05:11 Creatinine 1.2 mg/dL (0.8-1.5) 12/14/16 05:11 Estimated GFR > 60 ml/min 12/14/16 05:11 BUN/Creatinine Ratio 11.66 % 12/14/16 05:11 Glucose 107 mg/dL (75-100) H 12/14/16 05:11 Calcium 8.7 mg/dL (8.4-10.2) 12/14/16 05:11 Triglycerides 47 mg/dL (2-149) 12/13/16 04:35 Cholesterol 123 mg/dL (50-199) 12/13/16 04:35 LDL Cholesterol Direct 59 mg/dL (50-130) 12/13/16 04:35 HDL Cholesterol 55 mg/dL (40-59) 12/13/16 04:35 Cholesterol/HDL Ratio 2.23 % 12/13/16 04:35 Urine Color Yellow (Yellow) 12/12/16 06:57 Urine Turbidity Clear (Clear) 12/12/16 06:57 Urine pH 6.0 (5.0-7.0) 12/12/16 06:57 Ur Specific [place] 1.011 (1.003-1.030) 12/12/16 06:57 Urine Protein 30 mg/dl mg/dL (Negative) 12/12/16 06:57 Urine Glucose (UA) Neg mg/dL (Negative) 12/12/16 06:57 Urine Ketones Neg mg/dL (Negative) 12/12/16 06:57 Urine Blood Neg (Negative) 12/12/16 06:57 Urine Nitrite Neg (Negative) 12/12/16 06:57 Urine Bilirubin Neg (Negative) 12/12/16 06:57 Urine Urobilinogen < 2.0 mg/dL (<2.0) 12/12/16 06:57 Ur Leukocyte Esterase Neg (Negative) 12/12/16 06:57 Urine WBC (Auto) 1.0 /HPF (0.0-6.0) 12/12/16 06:57 Urine RBC (Auto) 3.0 /HPF (0.0-6.0) 12/12/16 06:57 Hyaline Casts 16 /LPF 12/12/16 06:57 Granular Casts 11 /LPF 12/12/16 06:57 Urine Mucus Few /HPF 12/12/16 06:57 Urine Sperm 1+ /HPF (MALT ROASTER) 12/12/16 06:57 Urine Opiates Screen Presumptive negative 12/12/16 06:57 Urine Methadone Screen Presumptive negative 12/12/16 06:57 Ur Barbiturates Screen Presumptive negative 12/12/16 06:57 Ur Phencyclidine Scrn Presumptive negative 12/12/16 06:57 Ur Amphetamines Screen Presumptive negative 12/12/16 06:57 U Benzodiazepines Scrn Presumptive negative 12/12/16 06:57 Urine Cocaine Screen Presumptive negative 12/12/16 06:57 U Marijuana (THC) Screen Presumptive negative 12/12/16 06:57 Drugs of Abuse Note Disclamer 12/12/16 06:57
[2016-12-14] MEDS: KEPPRA 500 MG in D5W 100 ML IV SCH ×2 (12:11→22:30)
[2016-12-14 14:07] LABS: Anion Gap 19 mmol/L; BUN/Creatinine Ratio 15.45; Blood Urea Nitrogen 17 mg/dL (9-20); Calcium 8.7 mg/dL (8.4-10.2); Carbon Dioxide 21 mmol/L (22-30); Glucose 119 mg/dL (75-100); Potassium 3.9 mmol/L (3.6-5.0); Sodium 139 mmol/L (137-145)
[2016-12-14] MEDS: ZOCOR PO SCH (21:38)
[2016-12-15] MEDS: KEPPRA 500 MG in D5W 100 ML IV SCH ×2 (10:49→21:53)
--- NOTE | 2016-12-15 13:16 | Discharge Summary ---
Providers - Providers Date of Admission: 12/12/16 08:09 Date of discharge: 12/15/16 Attending physician: BASIA WAYNE MD 12/12/16 11:10 Consult to Physician [CONS] Routine Consulting Provider: LAURA CHUN Reason For Exam: seizure Place consult to:: [place] Notified:: yes, voicemail left Phone number called:: [phone] Was contact made?: No Time called:: 15:15 12/12/16 11:12 Occupational Therapy Evaluate and Treat [CONS] Routine Comment: Reason For Exam: Neuro deficits Physical Therapy Evaluation and Treat [CONS] Routine Comment: Reason For Exam: Neuro deficits Primary care physician: JAVA LEAD ARCHITECT Hospitalization Reason for admission: seizure, metabolic encephalopathy Condition: Stable Time spent for discharge: 31 minutes - Discharge Diagnoses (1) Seizure Status: Acute (2) TIA (transient ischemic attack) Status: Acute Qualifiers: Transient cerebral ischemia type: T Core Measure Documentation - Palliative Care Palliative Care/ Comfort Measures: Not Applicable - Core Measures Any of the following diagnoses?: none Exam - Physical Exam Narrative exam: Not in cardiopulmonary distress. The patient appeared well nourished and normally developed. Vital signs as documented. Head exam is unremarkable. No scleral icterus . Neck is without jugular venous distension, thyromegaly, or carotid bruits. Lungs are clear to auscultation. Cardiac exam reveals regular rate and Rhythm. First and second heart sounds normal. No murmurs, rubs or gallops. Abdominal exam reveals normal bowel sounds, no masses, no organomegaly and no aortic enlargement. Extremities are nonedematous and both femoral and pedal pulses are normal. 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 Mild weakness of the right lower extremity compared to the left. - Constitutional Vitals: Temp Pulse Resp BP Pulse Ox 98 F 68 18 132/78 98 12/15/16 08:00 12/15/16 08:00 12/15/16 08:00 12/15/16 08:00 12/15/16 08:00 Plan Activity: fall precautions Weight Bearing Status: Full Weight Bearing Diet: low cholesterol, low salt Follow up with: PRIMARY CAREMD [Primary Care Provider] - 3-5 Days Prescriptions: levETIRAcetam [Keppra TAB] 500 mg PO BID #60 tablet
[2016-12-15] MEDS: ZOCOR PO SCH (21:53)
[2016-12-16 08:29] VITALS: BP 134/85
[2016-12-16] MEDS ORDERED: KEPPRA PO SCH (10:00)
--- NOTE | 2016-12-16 10:00 | Progress Note ---
Assessment and Plan Assessment and plan: 71-year-old -[place]amoan male with history of stroke presented to the emergency department for complaints of seizure episode, he had also with just generalized tonic-clonic seizures in the emergency department and after this the patient was postictal and confused. Status epilepticus - Patient is started on Keppra, no seizure episode after admission. EEG showed no active seizure. - Neurology consult appreciated - MRI and MRA showed no significant abnormality Toxic metabolic encephalopathy/delirium [place] - Likely postictal - Patient is alert and cooprative Fall - on fall precaution - No fall episode in the last 24hrs Hypertension - Continue home medications Hyperlipidemia Continue his statin Prophylaxis Lovenox Disposition - [facility] discharge him back [facility]. - Patient Problems (1) Seizure Current Visit: Yes Status: Acute (2) TIA (transient ischemic attack) Current Visit: No Status: Acute Qualifiers: Transient cerebral ischemia type: T History Interval history: Patient was seen and evaluated this morning, patient was alert and cooperative during exam. No confusion, or fall over night. Hospitalist Physical - Physical exam Narrative exam: Not in cardiopulmonary distress. The patient appeared well nourished and normally developed. Vital signs as documented. Head exam is unremarkable. No scleral icterus . Neck is without jugular venous distension, thyromegaly, or carotid bruits. Lungs are clear to auscultation. Cardiac exam reveals regular rate and Rhythm. First and second heart sounds normal. No murmurs, rubs or gallops. Abdominal exam reveals normal bowel sounds, no masses, no organomegaly and no aortic enlargement. Extremities are nonedematous and both femoral and pedal pulses are normal. PRINT PROJECT MANAGER: Patient was alert and cooperative. Mild weakness of the right lower extremity compared to the left. - Constitutional Vitals: Temp Pulse Resp BP Pulse Ox 98.2 F 60 20 134/85 98 12/16/16 08:28 12/16/16 08:28 12/16/16 08:28 12/16/16 08:28 12/15/16 08:00 Results - Labs CBC & Chem 7: 12/14/16 05:11 12/14/16 13:35 Labs: Laboratory Last Values WBC 9.0 K/mm3 (4.5-11.0) 12/14/16 05:11 RBC 4.25 M/mm3 (3.65-5.03) 12/14/16 05:11 Hgb 11.9 gm/dl (11.8-15.2) 12/14/16 05:11 Hct 36.6 % (35.5-45.6) 12/14/16 05:11 MCV 86 fl (84-94) 12/14/16 05:11 MCH 28 pg (28-32) 12/14/16 05:11 MCHC 33 % (32-34) 12/14/16 05:11 RDW 14.8 % (13.2-15.2) 12/14/16 05:11 Plt Count 219 K/mm3 (140-440) 12/14/16 05:11 Lymph % (Auto) 13.8 % (13.4-35.0) 12/14/16 05:11 [place] % (Auto) 10.5 % (0.0-7.3) H 12/14/16 05:11 Eos % (Auto) 0.1 % (0.0-4.3) 12/14/16 05:11 Baso % (Auto) 0.4 % (0.0-1.8) 12/14/16 05:11 Lymph # 1.2 K/mm3 (1.2-5.4) 12/14/16 05:11 [place] # 0.9 K/mm3 (0.0-0.8) H 12/14/16 05:11 Eos # 0.0 K/mm3 (0.0-0.4) 12/14/16 05:11 Baso # 0.0 K/mm3 (0.0-0.1) 12/14/16 05:11 Seg Neutrophils % 75.2 % (40.0-70.0) H 12/14/16 05:11 Seg Neutrophils # 6.8 K/mm3 (1.8-7.7) 12/14/16 05:11 Sodium 139 mmol/L (137-145) 12/14/16 13:35 Potassium 3.9 mmol/L (3.6-5.0) 12/14/16 13:35 Chloride 103.0 mmol/L (98-107) 12/14/16 13:35 Carbon Dioxide 21 mmol/L (22-30) L 12/14/16 13:35 Anion Gap 19 mmol/L 12/14/16 13:35 BUN 17 mg/dL (9-20) 12/14/16 13:35 Creatinine 1.1 mg/dL (0.8-1.5) 12/14/16 13:35 Estimated GFR > 60 ml/min 12/14/16 13:35 BUN/Creatinine Ratio 15.45 % 12/14/16 13:35 Glucose 119 mg/dL (75-100) H 12/14/16 13:35 POC Glucose 138 (70-105) H 12/15/16 23:28 Calcium 8.7 mg/dL (8.4-10.2) 12/14/16 13:35 Triglycerides 47 mg/dL (2-149) 12/13/16 04:35 Cholesterol 123 mg/dL (50-199) 12/13/16 04:35 LDL Cholesterol Direct 59 mg/dL (50-130) 12/13/16 04:35 HDL Cholesterol 55 mg/dL (40-59) 12/13/16 04:35 Cholesterol/HDL Ratio 2.23 % 12/13/16 04:35 Urine Color Yellow (Yellow) 12/12/16 06:57 Urine Turbidity Clear (Clear) 12/12/16 06:57 Urine pH 6.0 (5.0-7.0) 12/12/16 06:57 Ur Specific [place] 1.011 (1.003-1.030) 12/12/16 06:57 Urine Protein 30 mg/dl mg/dL (Negative) 12/12/16 06:57 Urine Glucose (UA) Neg mg/dL (Negative) 12/12/16 06:57 Urine Ketones Neg mg/dL (Negative) 12/12/16 06:57 Urine Blood Neg (Negative) 12/12/16 06:57 Urine Nitrite Neg (Negative) 12/12/16 06:57 Urine Bilirubin Neg (Negative) 12/12/16 06:57 Urine Urobilinogen < 2.0 mg/dL (<2.0) 12/12/16 06:57 Ur Leukocyte Esterase Neg (Negative) 12/12/16 06:57 Urine WBC (Auto) 1.0 /HPF (0.0-6.0) 12/12/16 06:57 Urine RBC (Auto) 3.0 /HPF (0.0-6.0) 12/12/16 06:57 Hyaline Casts 16 /LPF 12/12/16 06:57 Granular Casts 11 /LPF 12/12/16 06:57 Urine Mucus Few /HPF 12/12/16 06:57 Urine Sperm 1+ /HPF (MANAGING DIRECTOR ATLAS) 12/12/16 06:57 Urine Opiates Screen Presumptive negative 12/12/16 06:57 Urine Methadone Screen Presumptive negative 12/12/16 06:57 Ur Barbiturates Screen Presumptive negative 12/12/16 06:57 Ur Phencyclidine Scrn Presumptive negative 12/12/16 06:57 Ur Amphetamines Screen Presumptive negative 12/12/16 06:57 U Benzodiazepines Scrn Presumptive negative 12/12/16 06:57 Urine Cocaine Screen Presumptive negative 12/12/16 06:57 U Marijuana (THC) Screen Presumptive negative 12/12/16 06:57 Drugs of Abuse Note Disclamer 12/12/16 06:57
== END 2016-12-16 09:53 | DRG 100 ==
LOC: ED 05:42 → CC2 08:09
PROVIDERS: ADMIT Internal Medicine; ATTEND Internal Medicine
PROC: 3E0234Z Introduction of Serum, Toxoid and Vaccine into Muscle, Percutaneous Approach (ICD-10-PCS; principal; 2016-12-12)
DX: G40.901 Epilepsy, unspecified, not intractable, with status epilepticus (principal); G92 Toxic encephalopathy; I69.351 Hemiplegia and hemiparesis following cerebral infarction affecting right dominant side; I10 Essential (primary) hypertension; F17.200 Nicotine dependence, unspecified, uncomplicated; I25.10 Atherosclerotic heart disease of native coronary artery without angina pectoris; E78.5 Hyperlipidemia, unspecified; F03.90 Unspecified dementia, unspecified severity, without behavioral disturbance, psychotic disturbance, mood disturbance, and anxiety; I69.312 Visuospatial deficit and spatial neglect following cerebral infarction
CPT/HCPCS: 36415; 70450; 70544; 70551; 71010; 80048; 80061; 80307; 81001; 82962; 85025; 90732; 93005; 93010; 95819; 96374; 96375; G8978-GP; G8979-GP; G8980-GP; J1953; J2060; J7030

== ENCOUNTER 2017-02-06 06:30 | Emergency (ER) | payer MEDICARE ==
[2017-02-06] MEDS ORDERED: NACL 0.9% 1000 ML 1,000 ML IV ONE (06:49)
[2017-02-06] MEDS ORDERED: KEPPRA 1,000 MG/NS 0.75% 100ML 1,000 MG/100 ML BAG IV ONE (06:49)
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
[2017-02-06 07:14] LABS: Hematocrit 36.2 % (35.5-45.6); Hemoglobin 11.6 gm/dl (11.8-15.2); Mean Corpuscular HGB Conc 32 % (32-34); Mean Corpuscular Hemoglobin 28 pg (28-32); Mean Corpuscular Volume 87 fl (84-94); Platelet Count 299 K/mm3 (140-440); Red Blood Count 4.18 M/mm3 (3.65-5.03); Red Cell Distribution Width 15.4 % (13.2-15.2); White Blood Count 11.1 K/mm3 (4.5-11.0)
[2017-02-06 07:34] LABS: Alanine Aminotransferase 16 units/L (7-56); Albumin 3.9 g/dL (3.9-5); Albumin/Globulin Ratio 1.2 %; Alkaline Phosphatase 73 units/L (35-129); Anion Gap 30 mmol/L; BUN/Creatinine Ratio 10.76; Bilirubin,Total < 0.20 mg/dL (0.1-1.2); Blood Urea Nitrogen 14 mg/dL (9-20); Calcium 9.3 mg/dL (8.4-10.2); Carbon Dioxide 13 mmol/L (22-30); Glucose 200 mg/dL (75-100); Potassium 4.9 mmol/L (3.6-5.0); Sodium 136 mmol/L (137-145); Total Protein 7.2 g/dL (6.3-8.2)
--- NOTE | 2017-02-06 08:19 | Cat Scan Report ---
CT HEAD WITHOUT CONTRAST HISTORY: Seizure. TECHNIQUE: Sequential noncontrast CT images without IV contrast. FINDINGS: Compared to 12/12/16. There is diffuse volume loss and advanced chronic white matter changes which are stable. Large chronic infarct in the left posterior cerebral artery territory is again noted. Chronic focal infarcts are identified in the right caudate nucleus, left subinsular region, left lateral thalamus, and left libby. There is no evidence for hemorrhage, mass, extra-axial fluid collection or large area of acute ischemia on noncontrast CT. Ventricular size remains within normal limits. There is moderate fluid in the right maxillary sinus. The remaining visualized sinuses and mastoid air cells are well-aerated. IMPRESSION: Multiple chronic findings as outlined above which are unchanged since 12/12/16. No acute intracranial process is appreciated. Fluid in the right maxillary sinus. Correlate for acute sinusitis.
[2017-02-06 08:48] LABS: Basophils % (Manual) 0 % (0.0-1.8); Blastocytes % (Manual) 0 %; Diff Status Complete; Eosinophils % (Manual) 0 % (0.0-4.3); RBC Morphology Normal; Total Cells Counted Percent 0
[2017-02-06 15:09] VITALS: BP 141/83
== END 2017-02-06 15:27 | disposition home or self-care (01) ==
LOC: ED 06:30
DX: G40.909 Epilepsy, unspecified, not intractable, without status epilepticus (principal); G45.9 Transient cerebral ischemic attack, unspecified; I10 Essential (primary) hypertension; E78.5 Hyperlipidemia, unspecified; Z79.82 Long term (current) use of aspirin; Z98.890 Other specified postprocedural states
CPT/HCPCS: 36415; 70450; 80053; 85007; 85025; 93005; 93010; 96361; 96374; 99284; J1953; J7030

== ENCOUNTER 2017-07-26 09:54 | Inpatient (IN) | payer MEDICARE ==
[2017-07-26] MEDS ORDERED: KEPPRA 1,000 MG/NS 0.75% 100ML 1,000 MG/100 ML BAG IV ONE (11:08)
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
[2017-07-26 13:09] LABS: Basophils % (Auto) 0.3 % (0.0-1.8); Hematocrit 39.1 % (35.5-45.6); Hemoglobin 13.2 gm/dl (11.8-15.2); Mean Corpuscular HGB Conc 34 % (32-34); Mean Corpuscular Hemoglobin 29 pg (28-32); Mean Corpuscular Volume 85 fl (84-94); Platelet Count 240 K/mm3 (140-440); Red Blood Count 4.61 M/mm3 (3.65-5.03); Red Cell Distribution Width 15.1 % (13.2-15.2); White Blood Count 10.2 K/mm3 (4.5-11.0)
[2017-07-26 13:27] LABS: Calcium 8.8 mg/dL (8.4-10.2); Chloride 100.2 mmol/L (98-107); Magnesium 3.4 mg/dL (1.7-2.3); Potassium 4.5 mmol/L (3.6-5.0)
[2017-07-26] MEDS ORDERED: NACL 0.9% 1000 ML 1,000 ML IV ONE (14:03)
--- NOTE | 2017-07-26 15:17 | Cat Scan Report ---
FINAL REPORT PROCEDURE: CT HEAD/BRAIN WO CON TECHNIQUE: Computerized tomography of the head was performed without contrast material. HISTORY: prolonged postictal state COMPARISON: Prior CT scan of the brain 11/2016 FINDINGS: Accounting for difference in positioning a large old area of encephalomalacia is again visualized in the left temporal lobe extending posteriorly into the left occipital lobe without significant interval change. Old lacunar infarcts are again seen in the left external capsule and in the left thalamus. Old lacunar infarct again seen in the right caudate nucleus. Small old cortical infarcts seen in the right and left frontal lobes anterior laterally. The ventricles sulcal pattern and fissures are prominent consistent with moderate atrophy. There is decreased density in the periventricular white matter without mass effect. This is fairly symmetric and without interval change consistent with gliosis probably on the basis of microvascular disease or white matter changes of aging. There is no evidence of intracranial hemorrhage. No mass lesions or mass effect are identified. No abnormal extra-axial fluid collections or masses are identified. There is no evidence of skull fracture. Paranasal sinuses and mastoid air cells are clear. IMPRESSION: Stable exam. Large old area of encephalomalacia left temporal lobe and left occipital lobe. Small old cortical infarcts seen involving the right and left frontal lobes as described. Old lacunar infarcts visualize left thalamus and left external capsule as well as the right caudate nucleus. There is evidence of moderate atrophy and gliosis. No acute intracranial abnormalities are identified.
[2017-07-26] MEDS ORDERED: NACL 0.9% 1000 ML 1,000 ML ONE (17:21)
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
[2017-07-26] MEDS ORDERED: ATIVAN IM PRN (19:10)
[2017-07-26] MEDS ORDERED: MOTRIN PO PRN (19:10)
[2017-07-26] MEDS ORDERED: KEPPRA PO SCH ×2 (20:00→22:00)
[2017-07-26] MEDS: ASPIRIN PO SCH (20:28)
[2017-07-26] MEDS: NORVASC PO SCH (20:29)
[2017-07-26] MEDS: D5NS 1,000 ML IV SCH (22:17)
[2017-07-26] MEDS: KEPPRA 750 MG in NACL 0.9% 100 ML IV SCH (22:29)
[2017-07-27 04:56] LABS: Basophils % (Auto) 0.2 % (0.0-1.8); Hematocrit 37.3 % (35.5-45.6); Hemoglobin 12.6 gm/dl (11.8-15.2); Mean Corpuscular HGB Conc 34 % (32-34); Mean Corpuscular Hemoglobin 29 pg (28-32); Mean Corpuscular Volume 86 fl (84-94); Platelet Count 208 K/mm3 (140-440); Red Blood Count 4.35 M/mm3 (3.65-5.03); Red Cell Distribution Width 15.7 % (13.2-15.2); White Blood Count 8.9 K/mm3 (4.5-11.0)
[2017-07-27 05:08] LABS: Albumin 3.8 g/dL (3.9-5); Albumin/Globulin Ratio 1.4 %; Bilirubin,Total 0.5 mg/dL (0.1-1.2); Calcium 8.2 mg/dL (8.4-10.2); Chloride 104.5 mmol/L (98-107); Potassium 4.5 mmol/L (3.6-5.0); Total Protein 6.5 g/dL (6.3-8.2)
[2017-07-27] MEDS: ASPIRIN PO SCH (09:17)
[2017-07-27] MEDS: D5NS 1,000 ML IV SCH (09:17)
[2017-07-27] MEDS: KEPPRA 750 MG in NACL 0.9% 100 ML IV SCH ×2 (10:32→21:27)
[2017-07-27] MEDS: NORVASC PO SCH (11:45)
--- NOTE | 2017-07-27 13:03 | Progress Note ---
Assessment and Plan - Encephalopathy acute: Sec to recurrent seizures. Imrpoving. Still slightly confused. On Keppra. Monitor mental status -Postictal state: Cont Keppra IV and transition to po Keppra Dose adjusted to 750 mg bid IV to PO Keppra - Seizure: Cont Keppra IV and transition to po Keppra Dose adjusted to 750 mg bid IV to PO Keppra - MARC (acute kidney injury): ATN/Vasomotor nephropathy vs Rhabdomyelysis. continu with IV fluids, urine lytes and kidney US. Nephrology consult - HTN (hypertension: Cont Antihypertensives - HLD (hyperlipidemia): Cont statins - (generalized anxiety disorder): Cont Lorazepam - Alcohol Use d/o: commence [facility] Subjective Date of service: 07/27/17 Principal diagnosis: Seizure d/o, Rhabdomyelysis, MARC from tubular necrosis Interval history: Still confused in his mental status Objective - Constitutional Vitals: Vital Signs - 12hr 07/27/17 07/27/17 07/27/17 02:45 04:47 08:00 Temperature 99.2 F Pulse Rate 85 89 81 Pulse Rate [ Right Dorsalis Pedis] Respiratory 20 20 Rate Blood Pressure 130/71 Blood Pressure 119/60 [Left] O2 Sat by Pulse 91 98 Oximetry 07/27/17 10:00 Temperature Pulse Rate Pulse Rate [ 70 Right Dorsalis Pedis] Respiratory 20 Rate Blood Pressure Blood Pressure [Left] O2 Sat by Pulse 97 Oximetry General appearance: Present: no acute distress, well-nourished - EENT Eyes: PERRL, EOM intact Ears: bilateral: normal - Neck Neck: supple, normal ROM - Respiratory Respiratory effort: normal Respiratory: bilateral: CTA - Cardiovascular Rhythm: regular Heart Sounds: Present: S1 & S2. Absent: gallop, rub Extremities: pulses intact, No edema, normal color, Full ROM - Gastrointestinal General gastrointestinal: Present: soft, non-tender, non-distended, normal bowel sounds - Integumentary Integumentary: clear, warm, dry - Musculoskeletal Musculoskeletal: 1, strength equal bilaterally - Neurologic Neurologic: moves all extremities - Psychiatric Psychiatric: memory intact, appropriate mood/affect, intact judgment & insight - Labs CBC & Chem 7: 07/27/17 04:18 07/27/17 04:18 Labs: Abnormal lab results 07/26/17 07/26/17 07/26/17 Range/Units 13:00 13:00 13:00 RDW (13.2-15.2) % Lymph % (Auto) 4.2 L (13.4-35.0) % [place] % (Auto) (0.0-7.3) % Lymph # 0.4 L (1.2-5.4) K/mm3 [place] # (0.0-0.8) K/mm3 Seg Neutrophils % 89.4 H (40.0-70.0) % Seg Neutrophils # 9.2 H (1.8-7.7) K/mm3 Carbon Dioxide 18 L (22-30) mmol/L BUN (9-20) mg/dL Creatinine 1.6 H (0.8-1.5) mg/dL Glucose 103 H (75-100) mg/dL Calcium (8.4-10.2) mg/dL Magnesium 3.40 H (1.7-2.3) mg/dL AST (5-40) units/L Total Creatine Kinase 9721 H (55-170) units/L Albumin (3.9-5) g/dL 07/27/17 07/27/17 07/27/17 Range/Units 04:18 04:18 10:48 RDW 15.7 H (13.2-15.2) % Lymph % (Auto) 13.0 L (13.4-35.0) % [place] % (Auto) 12.9 H (0.0-7.3) % Lymph # (1.2-5.4) K/mm3 [place] # 1.2 H (0.0-0.8) K/mm3 Seg Neutrophils % 73.9 H (40.0-70.0) % Seg Neutrophils # (1.8-7.7) K/mm3 Carbon Dioxide 21 L (22-30) mmol/L BUN 31 H (9-20) mg/dL Creatinine 2.7 H D (0.8-1.5) mg/dL Glucose 118 H (75-100) mg/dL Calcium 8.2 L (8.4-10.2) mg/dL Magnesium (1.7-2.3) mg/dL AST 189 H (5-40) units/L Total Creatine Kinase 50455 H (55-170) units/L Albumin 3.8 L (3.9-5) g/dL
--- NOTE | 2017-07-27 13:33 | Consultation ---
History of Present Illness - Reason for Consult acute renal failure Requesting physician: GAEL HASSAN - History of Present Illness The patient is a 71-year-old male presented to the ER yesterday with a chief complaint of seizure. Patient is a poor historian. Unable to get much history from him. Information obtained from patient's current chart. He is a intermediate resident. The patient was administered Ativan 0.25 mg IM. EMS was called and upon their arrival at 08:30 the patient reportedly had a second generalized tonic-clonic seizure and was administered a second dose of Ativan 0.25 mg IM. Staff says the patient is normally ambulatory and able to speak. Patient is currently comfortable. Denies any shortness of breath. States that he is passing urine. His serum creatinine had gone up from 1.6 on admission 2.7 and therefore this consultation Past History Past Medical History: hypertension, seizures Past Surgical History: Other (not known) Social history: other (not known) Family history: other (patient is a intermediate resident) Medications and Allergies Allergies Allergy/AdvReac Type Severity Reaction Status Date / Time sulfamethoxazole Allergy Unknown Verified 07/26/17 17:27 [From Bactrim] tramadol [From Ultram] Allergy Unknown Verified 07/26/17 17:28 trimethoprim [From Bactrim] Allergy Unknown Verified 07/26/17 17:27 Home Medications Medication Instructions Recorded Confirmed Last Taken Type Aspirin [Aspirin TAB] 325 mg PO QDAY 08/06/16 07/26/17 02/05/17 History amLODIPine [Norvasc] 5 mg PO DAILY 08/06/16 07/26/17 02/05/17 History AtorvaSTATin [Lipitor] 40 mg PO HS #30 tablet 08/08/16 07/26/17 02/05/17 Rx levETIRAcetam [Keppra TAB] 500 mg PO BID #60 tablet 12/15/16 07/26/17 02/05/17 Rx Ibuprofen [Motrin] 600 mg PO Q8H PRN 02/06/17 07/26/17 Unknown History LORazepam [Ativan INJ] 2 mg IM Q4HR PRN MDD na 07/26/17 07/26/17 Unknown History Active Meds: Active Medications Amlodipine Besylate (Norvasc) 5 mg PO DAILY [facility] Last Admin: 12/03/17 11:45 Dose: Not Given Aspirin (Aspirin) 325 mg PO QDAY [facility] Last Admin: 07/27/17 09:17 Dose: Not Given Atorvastatin Calcium (Lipitor) 40 mg PO HS [facility] Last Admin: 07/26/17 21:16 Dose: Not Given Dextrose/Sodium Chloride (D5ns) 1,000 mls @ 100 mls/hr IV DIRECT [facility] Last Admin: 07/27/17 09:17 Dose: 100 mls/hr Levetiracetam 750 mg/ Sodium (Chloride) 107.5 mls @ 400 mls/hr IV Q12HR [facility] Last Infusion: 07/27/17 11:46 Dose: Infused Ibuprofen (Motrin) 600 mg PO Q8H PRN PRN Reason: Pain Lorazepam (Ativan) 2 mg IM Q4HR PRN PRN Reason: Seizures Review of Systems ROS unobtainable: due to mental status Exam - Vital Signs Vital signs: Vital Signs Temp Pulse BP Pulse Ox 99.0 F 115 H 136/70 94 07/26/17 10:45 07/26/17 10:45 07/26/17 10:45 07/26/17 10:45 - General Appearance General appearance: well-developed, well-nourished, appears stated age EENT: PERRL, mucous membranes moist Neck: Present: neck supple, trachea midline. Absent: JVD/HJR, Masses Respiratory: Clear to Ascultation Heart: regular, normal heart rate, S1S2, no murmurs Gastrointestinal: Present: normal, normoactive bowel sounds Integumentary: no rash, other (no edema) Results - Lab Results 07/27/17 04:18 07/27/17 04:18 Most recent lab results Calcium 8.2 mg/dL (8.4-10.2) L 07/27/17 04:18 Magnesium 3.40 mg/dL (1.7-2.3) H 07/26/17 13:00 Assessment and Plan Impression * Acute renal failure. Probably prerenal. He may have rhabdomyolysis as well * Seizure disorder * Hypertension * Hyperlipidemia Recommendations * Shall check a UA as well as a fraction excretion of sodium * Shall check urine for myoglobin and is well * Continue IV hydration * Renal ultrasound to assess kidney size and echogenicity * If patient has active urine sediment and/or if renal function continues to deteriorate, shall do additional workup * Avoid nephrotoxins * Discontinue ibuprofen which she was taking at the intermediate * Monitor patient's fluid status and electrolytes closely * Thank you very much for the consultation. Shall follow along with you
--- NOTE | 2017-07-27 17:12 | Ultrasound Report ---
FINAL REPORT PROCEDURE: US RENAL BILAT TECHNIQUE: Real-time sonography in multiple planes of the kidneys, ureters and urinary bladder was performed with image documentation. CPT 80145 HISTORY: MARC COMPARISON: No prior studies are available for comparison. FINDINGS: RIGHT kidney: Normal echotexture. No focal renal mass, calculus, or hydronephrosis. Length: 10.4 cm. LEFT kidney: Normal echotexture. No focal renal mass, calculus, or hydronephrosis. Length: 11.2cm. Bladder: No abnormality is seen.. IMPRESSION: Negative exam. No acute abnormalities are seen. No evidence of hydronephrosis..
[2017-07-27] MEDS: LOVENOX SUB-Q SCH (21:27)
[2017-07-27] MEDS ORDERED: LOVENOX SUB-Q SCH (22:00)
[2017-07-28 00:16] LABS: Bilirubin,Urine NEG (Negative); Blood,Urine MOD (Negative); Ketones,Urine NEG (Negative); Leukocyte Esterase,Urine NEG (Negative); Mucus,Urine FEW /HPF; Nitrite,Urine NEG (Negative); Protein,Urine <15 mg/dL mg/dL (Negative); Urobilinogen,Urine < 2.0 mg/dL (<2.0)
[2017-07-28 01:33] LABS: Fractional Sodium Excretion 1.5
[2017-07-28 07:06] LABS: Basophils % (Auto) 0.8 % (0.0-1.8); Eosinophils % (Auto) 0.1 % (0.0-4.3); Hematocrit 37.6 % (35.5-45.6); Hemoglobin 12.6 gm/dl (11.8-15.2); Mean Corpuscular HGB Conc 34 % (32-34); Mean Corpuscular Hemoglobin 29 pg (28-32); Mean Corpuscular Volume 86 fl (84-94); Red Blood Count 4.35 M/mm3 (3.65-5.03); Red Cell Distribution Width 15.5 % (13.2-15.2); White Blood Count 11.7 K/mm3 (4.5-11.0)
[2017-07-28 07:22] LABS: Albumin 3.7 g/dL (3.9-5); Albumin/Globulin Ratio 1.1 %; Bilirubin,Total 0.7 mg/dL (0.1-1.2); Calcium 8.6 mg/dL (8.4-10.2); Chloride 111.6 mmol/L (98-107); Potassium 5.2 mmol/L (3.6-5.0); Total Protein 7.2 g/dL (6.3-8.2)
[2017-07-28 07:45] LABS: Platelet Count 201 K/mm3 (140-440)
[2017-07-28] MEDS: LOVENOX SUB-Q SCH (09:48)
[2017-07-28] MEDS: ASPIRIN PO SCH (09:48)
[2017-07-28] MEDS: NORVASC PO SCH (09:48)
[2017-07-28] MEDS: KEPPRA 750 MG in NACL 0.9% 100 ML IV SCH ×2 (09:54→23:01)
--- NOTE | 2017-07-28 10:16 | Progress Note ---
Assessment and Plan Impression * Acute renal failure. Probably prerenal. He may have rhabdomyolysis as well * Seizure disorder * Hypertension * Hyperlipidemia * hyperkalemia * hypernatremia Recommendations * Continue IV hydration--1/2 ns * add kayexalate x one * Renal ultrasound [id number] * If patient has active urine sediment and/or if renal function continues to deteriorate, shall do additional workup * Avoid nephrotoxins * Discontinue ibuprofen * Monitor patient's fluid status and electrolytes closely Subjective Date of service: 07/28/17 Principal diagnosis: Seizure d/o, Rhabdomyelysis, MARC from tubular necrosis Interval history: resting well in bed today Objective - Exam Narrative Exam: General appearance: well-developed, well-nourished, appears stated age EENT: PERRL, mucous membranes moist Neck: Present: neck supple, trachea midline. Absent: JVD/HJR, Masses Respiratory: Clear to Ascultation Heart: regular, normal heart rate, S1S2, no murmurs Gastrointestinal: Present: normal, normoactive bowel sounds Integumentary: no rash, other (no edema) - Vital Signs Vital signs: Vital Signs - 12hr 07/28/17 07/28/17 07/28/17 04:21 07:26 07:27 Temperature 98.5 F Pulse Rate 77 74 74 Respiratory 18 Rate Blood Pressure 146/76 139/76 O2 Sat by Pulse 98 100 99 Oximetry 07/28/17 07/28/17 08:18 09:48 Temperature Pulse Rate 74 Respiratory Rate Blood Pressure 143/75 O2 Sat by Pulse 97 Oximetry - Lab 07/28/17 06:32 07/28/17 06:32 Most recent lab results Calcium 8.6 mg/dL (8.4-10.2) 07/28/17 06:32 Magnesium 3.20 mg/dL (1.7-2.3) H 07/27/17 10:48 Urine Creatinine 88.9 mg/dL (0.1-20.0) H 07/27/17 23:45 Urine Sodium 69 mmol/L 07/27/17 23:45
[2017-07-28] MEDS ORDERED: NACL 0.45% 1000 ML 1,000 ML IV SCH (11:00)
[2017-07-28] MEDS ORDERED: KIONEX PO ONE (11:00)
[2017-07-28] MEDS: D5/0.45NS 1,000 ML IV SCH (12:43)
--- NOTE | 2017-07-28 14:32 | Progress Note ---
<ROSIO OSEI - Last Filed: 07/28/17 14:32> Assessment and Plan Assessment and plan: The patient is a 71-year-old male presented with a chief complaint of seizure. half-way nurse who states that the patient reportedly had a seizure at 05: 30. The patient was administered Ativan 0.25 mg IM. The [facility] physician was paged and eventually instructed staff to send the patient to the ED for evaluation. EMS was called and upon their arrival at 08:30 the patient reportedly had a second generalized tonic-clonic seizure and was administered a second dose of Ativan 0.25 mg IM. Staff says the patient is normally ambulatory and able to speak. Assessment and Plan - Encephalopathy acute Sec to recurrent seizures. Improving. S On Keppra. Monitor mental status -Postictal state Cont Keppra IV and transition to po Keppra Dose adjusted to 750 mg bid IV to PO Keppra - Seizure Cont Keppra IV and transition to po Keppra Dose adjusted to 750 mg bid IV to PO Keppra - MARC (acute kidney injury) Likely Rhabdomyelysis. continue with IV fluids, urine lytes and kidney US. Nephrology following - HTN (hypertension: Cont Antihypertensives - HLD (hyperlipidemia): Cont statins - (generalized anxiety disorder): Cont Lorazepam - Alcohol Use d/o: commence [facility] protocal -Leukocytosis will continue to monitor trend and VS - DVT prophylaxis SCDs, Lovenox History Interval history: Patient is awake, alert and oriented to persona and place. He denies SOB, CH, NVD Hospitalist Physical - Constitutional Vitals: Temp Pulse Resp BP Pulse Ox 98.5 F 75 18 143/75 97 07/28/17 07:26 07/28/17 10:00 07/28/17 10:00 07/28/17 09:48 07/28/17 10:00 General appearance: Present: no acute distress, well-nourished - EENT Eyes: Present: PERRL, EOM intact ENT: hearing intact, clear oral mucosa - Neck Neck: Present: supple, normal ROM - Respiratory Respiratory effort: normal Respiratory: bilateral: CTA - Cardiovascular Rhythm: regular Heart Sounds: Present: S1 & S2 - Extremities Extremities: no ischemia, No edema Peripheral Pulses: within normal limits - Abdominal General gastrointestinal: soft, non-tender - Integumentary Integumentary: Present: clear, warm, dry - Psychiatric Psychiatric: appropriate mood/affect, intact judgment & insight, cooperative - Neurologic Neurologic: CNII-XII intact, moves all extremities - Allied Health Allied health notes reviewed: nursing Results - Labs CBC & Chem 7: 07/28/17 06:32 12 06:32 Labs: Laboratory Last Values WBC 11.7 K/mm3 (4.5-11.0) H 07/28/17 06:32 RBC 4.35 M/mm3 (3.65-5.03) 07/28/17 06:32 Hgb 12.6 gm/dl (11.8-15.2) 07/28/17 06:32 Hct 37.6 % (35.5-45.6) 07/28/17 06:32 MCV 86 fl (84-94) 07/28/17 06:32 MCH 29 pg (28-32) 07/28/17 06:32 MCHC 34 % (32-34) 07/28/17 06:32 RDW 15.5 % (13.2-15.2) H 07/28/17 06:32 Plt Count 201 K/mm3 (140-440) 07/28/17 06:32 Lymph % (Auto) 10.9 % (13.4-35.0) L 07/28/17 06:32 [place] % (Auto) 10.5 % (0.0-7.3) H 07/28/17 06:32 Eos % (Auto) 0.1 % (0.0-4.3) 07/28/17 06:32 Baso % (Auto) 0.8 % (0.0-1.8) 07/28/17 06:32 Lymph # 1.3 K/mm3 (1.2-5.4) 07/28/17 06:32 [place] # 1.2 K/mm3 (0.0-0.8) H 07/28/17 06:32 Eos # 0.0 K/mm3 (0.0-0.4) 07/28/17 06:32 Baso # 0.1 K/mm3 (0.0-0.1) 07/28/17 06:32 Seg Neutrophils % 77.7 % (40.0-70.0) H 07/28/17 06:32 Seg Neutrophils # 9.1 K/mm3 (1.8-7.7) H 07/28/17 06:32 PT 13.7 Sec. (12.2-14.9) 07/28/17 06:32 INR 1.00 (0.87-1.13) 07/28/17 06:32 Sodium 146 mmol/L (137-145) H 07/28/17 06:32 Potassium 5.2 mmol/L (3.6-5.0) H 07/28/17 06:32 Chloride 111.6 mmol/L (98-107) H 07/28/17 06:32 Carbon Dioxide 22 mmol/L (22-30) 07/28/17 06:32 Anion Gap 18 mmol/L 07/28/17 06:32 BUN 31 mg/dL (9-20) H 07/28/17 06:32 Creatinine 1.9 mg/dL (0.8-1.5) H 07/28/17 06:32 Estimated GFR 42 ml/min 07/28/17 06:32 BUN/Creatinine Ratio 16 % 07/28/17 06:32 Glucose 95 mg/dL (75-100) 07/28/17 06:32 POC Glucose 123 (70-105) H 07/28/17 11:12 Calcium 8.6 mg/dL (8.4-10.2) 07/28/17 06:32 Magnesium 3.20 mg/dL (1.7-2.3) H 07/27/17 10:48 Total Bilirubin 0.70 mg/dL (0.1-1.2) 07/28/17 06:32 AST 267 units/L (5-40) H 07/28/17 06:32 ALT 64 units/L (7-56) H 07/28/17 06:32 Alkaline Phosphatase 61 units/L (35-129) 07/28/17 06:32 Total Creatine Kinase 43798 units/L (55-170) H 07/28/17 06:32 Total Protein 7.2 g/dL (6.3-8.2) 07/28/17 06:32 Albumin 3.7 g/dL (3.9-5) L 07/28/17 06:32 Albumin/Globulin Ratio 1.1 % 07/28/17 06:32 Urine Color Yellow (Yellow) 07/27/17 23:45 Urine Turbidity Clear (Clear) 07/27/17 23:45 Urine pH 6.0 (5.0-7.0) 07/27/17 23:45 Ur Specific [place] 1.012 (1.003-1.030) 07/27/17 23:45 Urine Protein <15 mg/dl mg/dL (Negative) 07/27/17 23:45 Urine Glucose (UA) Neg mg/dL (Negative) 07/27/17 23:45 Urine Ketones Neg mg/dL (Negative) 07/27/17 23:45 Urine Blood Mod (Negative) 07/27/17 23:45 Urine Nitrite Neg (Negative) 07/27/17 23:45 Urine Bilirubin Neg (Negative) 07/27/17 23:45 Urine Urobilinogen < 2.0 mg/dL (<2.0) 07/27/17 23:45 Ur Leukocyte Esterase Neg (Negative) 07/27/17 23:45 Urine WBC (Auto) 2.0 /HPF (0.0-6.0) 07/27/17 23:45 Urine RBC (Auto) 5.0 /HPF (0.0-6.0) 07/27/17 23:45 Urine Mucus Few /HPF 07/27/17 23:45 Urine Creatinine 88.9 mg/dL (0.1-20.0) H 07/27/17 23:45 Urine Sodium 69 mmol/L 07/27/17 23:45 Fraction Sodium Excret 1.5 07/27/17 23:45 - Imaging and Cardiology Imaging and Cardiology: Unremarkable renal US <JINA STANFORD - Last Filed: 07/28/17 21:15> Assessment and Plan Assessment and plan: I saw and evaluated the patient. I agree with the findings and the plan of care as documented in the Physician Photographic Hand Developer's~note, with the following corrections and additions. Acute metabolic encephalopathy secondary to seizure disorder Seizure disorder Marc secondary to acute encephalopathy Plan.. As patients is improving, nayeli candelario start on Diet while awaiting Nurified Diet Hospitalist Physical - Constitutional Vitals: Temp Pulse Resp BP Pulse Ox 98.7 F 80 18 143/75 96 07/28/17 16:06 07/28/17 15:45 07/28/17 10:00 07/28/17 09:48 07/28/17 20:57 Results - Labs CBC & Chem 7: 07/28/17 06:32 07/28/17 06:32 Labs: Laboratory Last Values WBC 11.7 K/mm3 (4.5-11.0) H 07/28/17 06:32 RBC 4.35 M/mm3 (3.65-5.03) 07/28/17 06:32 Hgb 12.6 gm/dl (11.8-15.2) 07/28/17 06:32 Hct 37.6 % (35.5-45.6) 07/28/17 06:32 MCV 86 fl (84-94) 07/28/17 06:32 MCH 29 pg (28-32) 07/28/17 06:32 MCHC 34 % (32-34) 07/28/17 06:32 RDW 15.5 % (13.2-15.2) H 07/28/17 06:32 Plt Count 201 K/mm3 (140-440) 07/28/17 06:32 Lymph % (Auto) 10.9 % (13.4-35.0) L 07/28/17 06:32 [place] % (Auto) 10.5 % (0.0-7.3) H 07/28/17 06:32 Eos % (Auto) 0.1 % (0.0-4.3) 07/28/17 06:32 Baso % (Auto) 0.8 % (0.0-1.8) 07/28/17 06:32 Lymph # 1.3 K/mm3 (1.2-5.4) 07/28/17 06:32 [place] # 1.2 K/mm3 (0.0-0.8) H 07/28/17 06:32 Eos # 0.0 K/mm3 (0.0-0.4) 07/28/17 06:32 Baso # 0.1 K/mm3 (0.0-0.1) 07/28/17 06:32 Seg Neutrophils % 77.7 % (40.0-70.0) H 07/28/17 06:32 Seg Neutrophils # 9.1 K/mm3 (1.8-7.7) H 07/28/17 06:32 PT 13.7 Sec. (12.2-14.9) 07/28/17 06:32 INR 1.00 (0.87-1.13) 07/28/17 06:32 Sodium 146 mmol/L (137-145) H 07/28/17 06:32 Potassium 5.2 mmol/L (3.6-5.0) H 07/28/17 06:32 Chloride 111.6 mmol/L (98-107) H 07/28/17 06:32 Carbon Dioxide 22 mmol/L (22-30) 07/28/17 06:32 Anion Gap 18 mmol/L 07/28/17 06:32 BUN 31 mg/dL (9-20) H 07/28/17 06:32 Creatinine 1.9 mg/dL (0.8-1.5) H 07/28/17 06:32 Estimated GFR 42 ml/min 07/28/17 06:32 BUN/Creatinine Ratio 16 % 07/28/17 06:32 Glucose 95 mg/dL (75-100) 07/28/17 06:32 POC Glucose 123 (70-105) H 07/28/17 11:12 Calcium 8.6 mg/dL (8.4-10.2) 07/28/17 06:32 Magnesium 3.20 mg/dL (1.7-2.3) H 07/27/17 10:48 Total Bilirubin 0.70 mg/dL (0.1-1.2) 07/28/17 06:32 AST 267 units/L (5-40) H 07/28/17 06:32 ALT 64 units/L (7-56) H 07/28/17 06:32 Alkaline Phosphatase 61 units/L (35-129) 07/28/17 06:32 Total Creatine Kinase 31384 units/L (55-170) H 07/28/17 06:32 Total Protein 7.2 g/dL (6.3-8.2) 07/28/17 06:32 Albumin 3.7 g/dL (3.9-5) L 07/28/17 06:32 Albumin/Globulin Ratio 1.1 % 07/28/17 06:32 Urine Color Yellow (Yellow) 07/27/17 23:45 Urine Turbidity Clear (Clear) 07/27/17 23:45 Urine pH 6.0 (5.0-7.0) 07/27/17 23:45 Ur Specific [place] 1.012 (1.003-1.030) 07/27/17 23:45 Urine Protein <15 mg/dl mg/dL (Negative) 07/27/17 23:45 Urine Glucose (UA) Neg mg/dL (Negative) 07/27/17 23:45 Urine Ketones Neg mg/dL (Negative) 07/27/17 23:45 Urine Blood Mod (Negative) 07/27/17 23:45 Urine Nitrite Neg (Negative) 07/27/17 23:45 Urine Bilirubin Neg (Negative) 07/27/17 23:45 Urine Urobilinogen < 2.0 mg/dL (<2.0) 07/27/17 23:45 Ur Leukocyte Esterase Neg (Negative) 07/27/17 23:45 Urine WBC (Auto) 2.0 /HPF (0.0-6.0) 07/27/17 23:45 Urine RBC (Auto) 5.0 /HPF (0.0-6.0) 07/27/17 23:45 Urine Mucus Few /HPF 07/27/17 23:45 Urine Creatinine 88.9 mg/dL (0.1-20.0) H 07/27/17 23:45 Urine Sodium 69 mmol/L 07/27/17 23:45 Fraction Sodium Excret 1.5 07/27/17 23:45 <LENNY VAUGHAN - Last Filed: 08/05/17 05:48> Hospitalist Physical - Constitutional Vitals: Temp Pulse Resp BP Pulse Ox 97.3 F L 66 18 142/80 100 07/30/17 20:06 07/31/17 01:48 07/30/17 22:00 07/30/17 20:06 07/30/17 22:00 Results - Labs CBC & Chem 7: 07/30/17 04:20 08/05/17 03:49 Labs: Laboratory Last Values WBC 6.2 K/mm3 (4.5-11.0) 07/30/17 04:20 RBC 4.23 M/mm3 (3.65-5.03) 07/30/17 04:20 Hgb 11.6 gm/dl (11.8-15.2) L 07/30/17 04:20 Hct 36.7 % (35.5-45.6) 07/30/17 04:20 MCV 87 fl (84-94) 07/30/17 04:20 MCH 27 pg (28-32) L 07/30/17 04:20 MCHC 32 % (32-34) 07/30/17 04:20 RDW 15.8 % (13.2-15.2) H 07/30/17 04:20 Plt Count 218 K/mm3 (140-440) 07/30/17 04:20 Lymph % (Auto) 10.9 % (13.4-35.0) L 07/28/17 06:32 [place] % (Auto) 10.5 % (0.0-7.3) H 07/28/17 06:32 Eos % (Auto) 0.1 % (0.0-4.3) 07/28/17 06:32 Baso % (Auto) 0.8 % (0.0-1.8) 07/28/17 06:32 Lymph # 1.3 K/mm3 (1.2-5.4) 07/28/17 06:32 [place] # 1.2 K/mm3 (0.0-0.8) H 07/28/17 06:32 Eos # 0.0 K/mm3 (0.0-0.4) 07/28/17 06:32 Baso # 0.1 K/mm3 (0.0-0.1) 07/28/17 06:32 Seg Neutrophils % 77.7 % (40.0-70.0) H 07/28/17 06:32 Seg Neutrophils # 9.1 K/mm3 (1.8-7.7) H 07/28/17 06:32 PT 13.7 Sec. (12.2-14.9) 07/28/17 06:32 INR 1.00 (0.87-1.13) 07/28/17 06:32 Sodium 148 mmol/L (137-145) H 07/30/17 04:20 Potassium 3.8 mmol/L (3.6-5.0) 07/30/17 04:20 Chloride 109.7 mmol/L (98-107) H 07/30/17 04:20 Carbon Dioxide 24 mmol/L (22-30) 07/30/17 04:20 Anion Gap 18 mmol/L 07/30/17 04:20 BUN 19 mg/dL (9-20) 07/30/17 04:20 Creatinine 1.2 mg/dL (0.8-1.5) 07/30/17 04:20 Estimated GFR > 60 ml/min 07/30/17 04:20 BUN/Creatinine Ratio 16 % 07/30/17 04:20 Glucose 105 mg/dL (75-100) H 07/30/17 04:20 POC Glucose 93 (70-105) 07/31/17 02:40 Calcium 8.4 mg/dL (8.4-10.2) 07/30/17 04:20 Magnesium 3.20 mg/dL (1.7-2.3) H 07/27/17 10:48 Total Bilirubin 0.80 mg/dL (0.1-1.2) 07/30/17 04:20 AST 145 units/L (5-40) H 07/30/17 04:20 ALT 59 units/L (7-56) H 07/30/17 04:20 Alkaline Phosphatase 60 units/L (35-129) 07/30/17 04:20 Total Creatine Kinase 46887 units/L (55-170) H 07/30/17 04:20 Total Protein 6.2 g/dL (6.3-8.2) L 07/30/17 04:20 Albumin 3.7 g/dL (3.9-5) L 07/30/17 04:20 Albumin/Globulin Ratio 1.5 % 07/30/17 04:20 Urine Color Yellow (Yellow) 07/27/17 23:45 Urine Turbidity Clear (Clear) 07/27/17 23:45 Urine pH 6.0 (5.0-7.0) 07/27/17 23:45 Ur Specific [place] 1.012 (1.003-1.030) 07/27/17 23:45 Urine Protein <15 mg/dl mg/dL (Negative) 07/27/17 23:45 Urine Glucose (UA) Neg mg/dL (Negative) 07/27/17 23:45 Urine Ketones Neg mg/dL (Negative) 07/27/17 23:45 Urine Blood Mod (Negative) 07/27/17 23:45 Urine Nitrite Neg (Negative) 07/27/17 23:45 Urine Bilirubin Neg (Negative) 07/27/17 23:45 Urine Urobilinogen < 2.0 mg/dL (<2.0) 07/27/17 23:45 Ur Leukocyte Esterase Neg (Negative) 07/27/17 23:45 Urine WBC (Auto) 2.0 /HPF (0.0-6.0) 07/27/17 23:45 Urine RBC (Auto) 5.0 /HPF (0.0-6.0) 07/27/17 23:45 Urine Mucus Few /HPF 07/27/17 23:45 Urine Creatinine 88.9 mg/dL (0.1-20.0) H 07/27/17 23:45 Urine Sodium 69 mmol/L 07/27/17 23:45 Fraction Sodium Excret 1.5 07/27/17 23:45
[2017-07-29] MEDS: D5/0.45NS 1,000 ML IV SCH (00:44)
[2017-07-29 05:35] LABS: Albumin 3.7 g/dL (3.9-5); Albumin/Globulin Ratio 1.5 %; Bilirubin,Total 0.7 mg/dL (0.1-1.2); Calcium 8.4 mg/dL (8.4-10.2); Chloride 113.2 mmol/L (98-107); Total Protein 6.2 g/dL (6.3-8.2)
[2017-07-29 05:49] LABS: Potassium 3.8 mmol/L (3.6-5.0)
--- NOTE | 2017-07-29 08:48 | Progress Note ---
Assessment and Plan Impression * Acute renal failure. Probably prerenal. He may have rhabdomyolysis as well * Seizure disorder * Hypertension * Hyperlipidemia * hyperkalemia * hypernatremia Recommendations * Continue IV hydration--D5W * cr is better today * added kayexalate x one--k is better today * Renal ultrasound noted--no hydro * If patient has active urine sediment and/or if renal function continues to deteriorate, shall do additional workup * Avoid nephrotoxins * Discontinue ibuprofen * Monitor patient's fluid status and electrolytes closely Subjective Date of service: 07/29/17 Principal diagnosis: Seizure d/o, Rhabdomyelysis, MARC from tubular necrosis Interval history: resting well in bed today Objective - Exam Narrative Exam: General appearance: well-developed, well-nourished, appears stated age EENT: PERRL, mucous membranes moist Neck: Present: neck supple, trachea midline. Absent: JVD/HJR, Masses Respiratory: Clear to Ascultation Heart: regular, normal heart rate, S1S2, no murmurs Gastrointestinal: Present: normal, normoactive bowel sounds Integumentary: no rash, other (no edema) - Vital Signs Vital signs: Vital Signs - 12hr 07/28/17 07/28/17 07/29/17 20:57 22:00 05:36 Temperature 97.8 F Pulse Rate 82 61 Respiratory 20 20 Rate Blood Pressure 144/79 O2 Sat by Pulse 96 98 98 Oximetry 07/29/17 08:05 Temperature 97.4 F L Pulse Rate 64 Respiratory 18 Rate Blood Pressure 142/81 O2 Sat by Pulse 96 Oximetry - Lab 07/28/17 06:32 07/29/17 04:23 Most recent lab results Calcium 8.4 mg/dL (8.4-10.2) 07/29/17 04:23 Magnesium 3.20 mg/dL (1.7-2.3) H 07/27/17 10:48 Urine Creatinine 88.9 mg/dL (0.1-20.0) H 07/27/17 23:45 Urine Sodium 69 mmol/L 07/27/17 23:45
--- NOTE | 2017-07-29 09:29 | Progress Note ---
<ROSIO OSEI - Last Filed: 07/29/17 15:57> Assessment and Plan Assessment and plan: The patient is a 71-year-old male presented with a chief complaint of seizure. retirement nurse who states that the patient reportedly had a seizure at 05: 30. The patient was administered Ativan 0.25 mg IM. The alf physician was paged and eventually instructed staff to send the patient to the ED for evaluation. EMS was called and upon their arrival at 08:30 the patient reportedly had a second generalized tonic-clonic seizure and was administered a second dose of Ativan 0.25 mg IM. Staff says the patient is normally ambulatory and able to speak. Assessment and Plan - Encephalopathy acute Sec to recurrent seizures. Improving. S On Keppra. Monitor mental status -Postictal state Cont Keppra IV and transition to po Keppra Dose adjusted to 750 mg bid IV to PO Keppra - Seizure Cont Keppra IV and transition to po Keppra Dose adjusted to 750 mg bid IV to PO Keppra - MARC (acute kidney injury) Likely Rhabdomyelysis. continue with IV fluids IV fluids, urine lytes and kidney US. Nephrology following - HTN (hypertension: Cont Antihypertensives - HLD (hyperlipidemia): Cont statins - (generalized anxiety disorder): Cont Lorazepam - Alcohol Use d/o: commence CIWA protocal -Leukocytosis will continue to monitor trend and VS CBC am - DVT prophylaxis SCDs, Lovenox History Interval history: Patient is awake, alert and oriented to person and place. He denies SOB, CH, NVD Hospitalist Physical - Constitutional Vitals: Temp Pulse Resp BP Pulse Ox 97.4 F L 64 18 142/81 96 07/29/17 08:05 07/29/17 08:05 07/29/17 08:05 07/29/17 08:05 07/29/17 08:05 General appearance: Present: no acute distress, well-nourished - EENT Eyes: Present: PERRL, EOM intact ENT: hearing intact, clear oral mucosa, poor dentition - Neck Neck: Present: supple, normal ROM - Respiratory Respiratory effort: normal Respiratory: bilateral: CTA - Cardiovascular Rhythm: regular Heart Sounds: Present: S1 & S2 - Extremities Extremities: no ischemia, No edema Peripheral Pulses: within normal limits - Abdominal General gastrointestinal: soft, non-tender - Integumentary Integumentary: Present: clear, warm, dry - Psychiatric Psychiatric: appropriate mood/affect, cooperative - Neurologic Neurologic: CNII-XII intact, moves all extremities - Allied Health Allied health notes reviewed: nursing Results - Labs CBC & Chem 7: 07/28/17 06:32 07/29/17 04:23 Labs: Laboratory Last Values WBC 11.7 K/mm3 (4.5-11.0) H 07/28/17 06:32 RBC 4.35 M/mm3 (3.65-5.03) 07/28/17 06:32 Hgb 12.6 gm/dl (11.8-15.2) 07/28/17 06:32 Hct 37.6 % (35.5-45.6) 07/28/17 06:32 MCV 86 fl (84-94) 07/28/17 06:32 MCH 29 pg (28-32) 07/28/17 06:32 MCHC 34 % (32-34) 07/28/17 06:32 RDW 15.5 % (13.2-15.2) H 07/28/17 06:32 Plt Count 201 K/mm3 (140-440) 07/28/17 06:32 Lymph % (Auto) 10.9 % (13.4-35.0) L 07/28/17 06:32 [place] % (Auto) 10.5 % (0.0-7.3) H 07/28/17 06:32 Eos % (Auto) 0.1 % (0.0-4.3) 07/28/17 06:32 Baso % (Auto) 0.8 % (0.0-1.8) 07/28/17 06:32 Lymph # 1.3 K/mm3 (1.2-5.4) 07/28/17 06:32 [place] # 1.2 K/mm3 (0.0-0.8) H 07/28/17 06:32 Eos # 0.0 K/mm3 (0.0-0.4) 07/28/17 06:32 Baso # 0.1 K/mm3 (0.0-0.1) 07/28/17 06:32 Seg Neutrophils % 77.7 % (40.0-70.0) H 07/28/17 06:32 Seg Neutrophils # 9.1 K/mm3 (1.8-7.7) H 07/28/17 06:32 PT 13.7 Sec. (12.2-14.9) 07/28/17 06:32 INR 1.00 (0.87-1.13) 07/28/17 06:32 Sodium 150 mmol/L (137-145) H 07/29/17 04:23 Potassium 3.8 mmol/L (3.6-5.0) D 07/29/17 04:23 Chloride 113.2 mmol/L (98-107) H 07/29/17 04:23 Carbon Dioxide 23 mmol/L (22-30) 07/29/17 04:23 Anion Gap 18 mmol/L 07/29/17 04:23 BUN 22 mg/dL (9-20) H 07/29/17 04:23 Creatinine 1.5 mg/dL (0.8-1.5) 07/29/17 04:23 Estimated GFR 56 ml/min 07/29/17 04:23 BUN/Creatinine Ratio 15 % 07/29/17 04:23 Glucose 112 mg/dL (75-100) H 07/29/17 04:23 POC Glucose 123 (70-105) H 07/28/17 11:12 Calcium 8.4 mg/dL (8.4-10.2) 07/29/17 04:23 Magnesium 3.20 mg/dL (1.7-2.3) H 07/27/17 10:48 Total Bilirubin 0.70 mg/dL (0.1-1.2) 07/29/17 04:23 AST 236 units/L (5-40) H 07/29/17 04:23 ALT 65 units/L (7-56) H 07/29/17 04:23 Alkaline Phosphatase 60 units/L (35-129) 07/29/17 04:23 Total Creatine Kinase 33424 units/L (55-170) H 07/29/17 04:23 Total Protein 6.2 g/dL (6.3-8.2) L 07/29/17 04:23 Albumin 3.7 g/dL (3.9-5) L 07/29/17 04:23 Albumin/Globulin Ratio 1.5 % 07/29/17 04:23 Urine Color Yellow (Yellow) 07/27/17 23:45 Urine Turbidity Clear (Clear) 07/27/17 23:45 Urine pH 6.0 (5.0-7.0) 07/27/17 23:45 Ur Specific [place] 1.012 (1.003-1.030) 07/27/17 23:45 Urine Protein <15 mg/dl mg/dL (Negative) 07/27/17 23:45 Urine Glucose (UA) Neg mg/dL (Negative) 07/27/17 23:45 Urine Ketones Neg mg/dL (Negative) 07/27/17 23:45 Urine Blood Mod (Negative) 07/27/17 23:45 Urine Nitrite Neg (Negative) 07/27/17 23:45 Urine Bilirubin Neg (Negative) 07/27/17 23:45 Urine Urobilinogen < 2.0 mg/dL (<2.0) 07/27/17 23:45 Ur Leukocyte Esterase Neg (Negative) 07/27/17 23:45 Urine WBC (Auto) 2.0 /HPF (0.0-6.0) 07/27/17 23:45 Urine RBC (Auto) 5.0 /HPF (0.0-6.0) 07/27/17 23:45 Urine Mucus Few /HPF 07/27/17 23:45 Urine Creatinine 88.9 mg/dL (0.1-20.0) H 07/27/17 23:45 Urine Sodium 69 mmol/L 07/27/17 23:45 Fraction Sodium Excret 1.5 07/27/17 23:45 <LENNY VAUGHAN - Last Filed: 07/29/17 18:23> Assessment and Plan Assessment and plan: I saw and evaluated the patient. I agree with the findings and the plan of care as documented in the Nurse Practitioner's~note, with the following corrections and additions. Patient is 71 yo presented with seizures. Also has MARC, rhabdmyolysis. Hospitalist Physical - Constitutional Vitals: Temp Pulse Resp BP Pulse Ox 98.6 F 70 18 138/77 96 07/29/17 15:05 07/29/17 15:05 07/29/17 15:05 07/29/17 15:04 07/29/17 15:41 Results - Labs CBC & Chem 7: 07/28/17 06:32 07/29/17 04:23 Labs: Laboratory Last Values WBC 11.7 K/mm3 (4.5-11.0) H 07/28/17 06:32 RBC 4.35 M/mm3 (3.65-5.03) 07/28/17 06:32 Hgb 12.6 gm/dl (11.8-15.2) 07/28/17 06:32 Hct 37.6 % (35.5-45.6) 07/28/17 06:32 MCV 86 fl (84-94) 07/28/17 06:32 MCH 29 pg (28-32) 07/28/17 06:32 MCHC 34 % (32-34) 07/28/17 06:32 RDW 15.5 % (13.2-15.2) H 07/28/17 06:32 Plt Count 201 K/mm3 (140-440) 07/28/17 06:32 Lymph % (Auto) 10.9 % (13.4-35.0) L 07/28/17 06:32 [place] % (Auto) 10.5 % (0.0-7.3) H 07/28/17 06:32 Eos % (Auto) 0.1 % (0.0-4.3) 07/28/17 06:32 Baso % (Auto) 0.8 % (0.0-1.8) 07/28/17 06:32 Lymph # 1.3 K/mm3 (1.2-5.4) 07/28/17 06:32 [place] # 1.2 K/mm3 (0.0-0.8) H 07/28/17 06:32 Eos # 0.0 K/mm3 (0.0-0.4) 07/28/17 06:32 Baso # 0.1 K/mm3 (0.0-0.1) 07/28/17 06:32 Seg Neutrophils % 77.7 % (40.0-70.0) H 07/28/17 06:32 Seg Neutrophils # 9.1 K/mm3 (1.8-7.7) H 07/28/17 06:32 PT 13.7 Sec. (12.2-14.9) 07/28/17 06:32 INR 1.00 (0.87-1.13) 07/28/17 06:32 Sodium 150 mmol/L (137-145) H 07/29/17 04:23 Potassium 3.8 mmol/L (3.6-5.0) D 07/29/17 04:23 Chloride 113.2 mmol/L (98-107) H 07/29/17 04:23 Carbon Dioxide 23 mmol/L (22-30) 07/29/17 04:23 Anion Gap 18 mmol/L 07/29/17 04:23 BUN 22 mg/dL (9-20) H 07/29/17 04:23 Creatinine 1.5 mg/dL (0.8-1.5) 07/29/17 04:23 Estimated GFR 56 ml/min 07/29/17 04:23 BUN/Creatinine Ratio 15 % 07/29/17 04:23 Glucose 112 mg/dL (75-100) H 07/29/17 04:23 POC Glucose 114 (70-105) H 07/29/17 18:03 Calcium 8.4 mg/dL (8.4-10.2) 07/29/17 04:23 Magnesium 3.20 mg/dL (1.7-2.3) H 07/27/17 10:48 Total Bilirubin 0.70 mg/dL (0.1-1.2) 07/29/17 04:23 AST 236 units/L (5-40) H 07/29/17 04:23 ALT 65 units/L (7-56) H 07/29/17 04:23 Alkaline Phosphatase 60 units/L (35-129) 07/29/17 04:23 Total Creatine Kinase 42560 units/L (55-170) H 07/29/17 04:23 Total Protein 6.2 g/dL (6.3-8.2) L 07/29/17 04:23 Albumin 3.7 g/dL (3.9-5) L 07/29/17 04:23 Albumin/Globulin Ratio 1.5 % 07/29/17 04:23 Urine Color Yellow (Yellow) 07/27/17 23:45 Urine Turbidity Clear (Clear) 07/27/17 23:45 Urine pH 6.0 (5.0-7.0) 07/27/17 23:45 Ur Specific [place] 1.012 (1.003-1.030) 07/27/17 23:45 Urine Protein <15 mg/dl mg/dL (Negative) 07/27/17 23:45 Urine Glucose (UA) Neg mg/dL (Negative) 07/27/17 23:45 Urine Ketones Neg mg/dL (Negative) 07/27/17 23:45 Urine Blood Mod (Negative) 07/27/17 23:45 Urine Nitrite Neg (Negative) 07/27/17 23:45 Urine Bilirubin Neg (Negative) 07/27/17 23:45 Urine Urobilinogen < 2.0 mg/dL (<2.0) 07/27/17 23:45 Ur Leukocyte Esterase Neg (Negative) 07/27/17 23:45 Urine WBC (Auto) 2.0 /HPF (0.0-6.0) 07/27/17 23:45 Urine RBC (Auto) 5.0 /HPF (0.0-6.0) 07/27/17 23:45 Urine Mucus Few /HPF 07/27/17 23:45 Urine Creatinine 88.9 mg/dL (0.1-20.0) H 07/27/17 23:45 Urine Sodium 69 mmol/L 07/27/17 23:45 Fraction Sodium Excret 1.5 07/27/17 23:45
--- NOTE | 2017-07-29 10:19 | Fluoroscopy Report ---
MODIFIED BARIUM SWALLOW: A modified barium swallow was performed with the aid of the speech pathologist. Fluoroscopic observation with multiple consistencies of barium was performed. Please see speech pathologist's notes for impression.
[2017-07-29] MEDS: LOVENOX SUB-Q SCH (12:24)
[2017-07-29] MEDS: ASPIRIN PO SCH (12:24)
[2017-07-29] MEDS: KEPPRA 750 MG in NACL 0.9% 100 ML IV SCH ×2 (12:24→22:44)
[2017-07-29] MEDS: NORVASC PO SCH (12:24)
[2017-07-29] MEDS: D5W 1,000 ML IV SCH (16:05)
[2017-07-30 05:26] LABS: Hematocrit 36.7 % (35.5-45.6); Hemoglobin 11.6 gm/dl (11.8-15.2); Mean Corpuscular HGB Conc 32 % (32-34); Mean Corpuscular Hemoglobin 27 pg (28-32); Mean Corpuscular Volume 87 fl (84-94); Platelet Count 218 K/mm3 (140-440); Red Blood Count 4.23 M/mm3 (3.65-5.03); Red Cell Distribution Width 15.8 % (13.2-15.2); White Blood Count 6.2 K/mm3 (4.5-11.0)
[2017-07-30 05:47] LABS: Alanine Aminotransferase 59 units/L (7-56); Albumin 3.7 g/dL (3.9-5); Albumin/Globulin Ratio 1.5 %; Alkaline Phosphatase 60 units/L (35-129); Anion Gap 18 mmol/L; BUN/Creatinine Ratio 16; Blood Urea Nitrogen 19 mg/dL (9-20); Calcium 8.4 mg/dL (8.4-10.2); Carbon Dioxide 24 mmol/L (22-30); Chloride 109.7 mmol/L (98-107); Glucose 105 mg/dL (75-100); Potassium 3.8 mmol/L (3.6-5.0); Sodium 148 mmol/L (137-145); Total Protein 6.2 g/dL (6.3-8.2)
[2017-07-30] MEDS: D5W 1,000 ML IV SCH ×2 (06:46→20:07)
--- NOTE | 2017-07-30 08:20 | Progress Note ---
Assessment and Plan Impression * Acute renal failure. Probably prerenal. He may have rhabdomyolysis as well * Seizure disorder * Hypertension * Hyperlipidemia * hyperkalemia * hypernatremia Recommendations * Continue IV hydration--D5W, Na is better today * advance diet * cr is better today * added kayexalate x one--k is better today * Renal ultrasound noted--no hydro * If patient has active urine sediment and/or if renal function continues to deteriorate, shall do additional workup * Avoid nephrotoxins * Discontinue ibuprofen * Monitor patient's fluid status and electrolytes closely Subjective Date of service: 07/30/17 Principal diagnosis: Seizure d/o, Rhabdomyelysis, MARC from tubular necrosis Interval history: resting well in bed today Objective - Exam Narrative Exam: General appearance: well-developed, well-nourished, appears stated age EENT: PERRL, mucous membranes moist Neck: Present: neck supple, trachea midline. Absent: JVD/HJR, Masses Respiratory: Clear to Ascultation Heart: regular, normal heart rate, S1S2, no murmurs Gastrointestinal: Present: normal, normoactive bowel sounds Integumentary: no rash, other (no edema) - Vital Signs Vital signs: Vital Signs - 12hr 07/29/17 07/29/17 20:55 22:00 Pulse Rate 71 O2 Sat by Pulse 97 97 Oximetry - Lab 07/30/17 04:20 07/30/17 04:20 Most recent lab results Calcium 8.4 mg/dL (8.4-10.2) 07/30/17 04:20 Magnesium 3.20 mg/dL (1.7-2.3) H 07/27/17 10:48 Urine Creatinine 88.9 mg/dL (0.1-20.0) H 07/27/17 23:45 Urine Sodium 69 mmol/L 07/27/17 23:45
[2017-07-30] MEDS: KEPPRA 750 MG in NACL 0.9% 100 ML IV SCH ×2 (11:51→22:30)
[2017-07-30] MEDS: ASPIRIN PO SCH (11:51)
[2017-07-30] MEDS: LOVENOX SUB-Q SCH (11:52)
[2017-07-30] MEDS: NORVASC PO SCH (11:53)
--- NOTE | 2017-07-30 15:08 | Progress Note ---
<ROSIO OSEI - Last Filed: 07/30/17 15:04> Assessment and Plan Assessment and plan: The patient is a 71-year-old male presented with a chief complaint of seizure. [facility] nurse who states that the patient reportedly had a seizure at 05: 30. The patient was administered Ativan 0.25 mg IM. The alf physician was paged and eventually instructed staff to send the patient to the ED for evaluation. EMS was called and upon their arrival at 08:30 the patient reportedly had a second generalized tonic-clonic seizure and was administered a second dose of Ativan 0.25 mg IM. Staff says the patient is normally ambulatory and able to speak. Assessment and Plan - Encephalopathy acute Sec to recurrent seizures. Improving. On Keppra. Monitor mental status - Seizure Cont Keppra IV and transition to po Keppra Continue PO Keppra - MARC (acute kidney injury) Likely Rhabdomyelysis. continue with IV fluids IV fluids, urine lytes and kidney US. Nephrology following HTN (hypertension - Cont Antihypertensives HLD (hyperlipidemia) - Cont statins - (generalized anxiety disorder): Cont Lorazepam - Alcohol Use d/o: commence CIWA protocal -Leukocytosis Resolved - DVT prophylaxis SCDs, Lovenox History Interval history: Patient is awake, alert and oriented to person and place. He denies SOB, CH, NVD Hospitalist Physical - Constitutional Vitals: Temp Pulse Resp BP Pulse Ox 98.6 F 81 20 143/73 97 07/29/17 19:50 07/30/17 11:53 07/29/17 19:50 07/30/17 11:53 07/29/17 22:00 General appearance: Present: no acute distress, well-nourished - EENT Eyes: Present: PERRL, EOM intact ENT: hearing intact, clear oral mucosa - Neck Neck: Present: supple, normal ROM - Respiratory Respiratory effort: normal Respiratory: bilateral: CTA - Cardiovascular Rhythm: regular Heart Sounds: Present: S1 & S2 - Extremities Extremities: no ischemia, No edema Peripheral Pulses: within normal limits - Abdominal General gastrointestinal: soft, non-tender - Integumentary Integumentary: Present: clear, warm, dry - Psychiatric Psychiatric: appropriate mood/affect, cooperative - Neurologic Neurologic: CNII-XII intact, moves all extremities - Allied Health Allied health notes reviewed: nursing Results - Labs CBC & Chem 7: 07/30/17 04:20 07/30/17 04:20 Labs: Laboratory Last Values WBC 6.2 K/mm3 (4.5-11.0) 07/30/17 04:20 RBC 4.23 M/mm3 (3.65-5.03) 07/30/17 04:20 Hgb 11.6 gm/dl (11.8-15.2) L 07/30/17 04:20 Hct 36.7 % (35.5-45.6) 07/30/17 04:20 MCV 87 fl (84-94) 07/30/17 04:20 MCH 27 pg (28-32) L 07/30/17 04:20 MCHC 32 % (32-34) 07/30/17 04:20 RDW 15.8 % (13.2-15.2) H 07/30/17 04:20 Plt Count 218 K/mm3 (140-440) 07/30/17 04:20 Lymph % (Auto) 10.9 % (13.4-35.0) L 07/28/17 06:32 [place] % (Auto) 10.5 % (0.0-7.3) H 07/28/17 06:32 Eos % (Auto) 0.1 % (0.0-4.3) 07/28/17 06:32 Baso % (Auto) 0.8 % (0.0-1.8) 07/28/17 06:32 Lymph # 1.3 K/mm3 (1.2-5.4) 07/28/17 06:32 [place] # 1.2 K/mm3 (0.0-0.8) H 07/28/17 06:32 Eos # 0.0 K/mm3 (0.0-0.4) 07/28/17 06:32 Baso # 0.1 K/mm3 (0.0-0.1) 07/28/17 06:32 Seg Neutrophils % 77.7 % (40.0-70.0) H 07/28/17 06:32 Seg Neutrophils # 9.1 K/mm3 (1.8-7.7) H 07/28/17 06:32 PT 13.7 Sec. (12.2-14.9) 07/28/17 06:32 INR 1.00 (0.87-1.13) 07/28/17 06:32 Sodium 148 mmol/L (137-145) H 07/30/17 04:20 Potassium 3.8 mmol/L (3.6-5.0) 07/30/17 04:20 Chloride 109.7 mmol/L (98-107) H 07/30/17 04:20 Carbon Dioxide 24 mmol/L (22-30) 07/30/17 04:20 Anion Gap 18 mmol/L 07/30/17 04:20 BUN 19 mg/dL (9-20) 07/30/17 04:20 Creatinine 1.2 mg/dL (0.8-1.5) 07/30/17 04:20 Estimated GFR > 60 ml/min 07/30/17 04:20 BUN/Creatinine Ratio 16 % 07/30/17 04:20 Glucose 105 mg/dL (75-100) H 07/30/17 04:20 POC Glucose 91 (70-105) 07/30/17 12:39 Calcium 8.4 mg/dL (8.4-10.2) 07/30/17 04:20 Magnesium 3.20 mg/dL (1.7-2.3) H 07/27/17 10:48 Total Bilirubin 0.80 mg/dL (0.1-1.2) 07/30/17 04:20 AST 145 units/L (5-40) H 07/30/17 04:20 ALT 59 units/L (7-56) H 07/30/17 04:20 Alkaline Phosphatase 60 units/L (35-129) 07/30/17 04:20 Total Creatine Kinase 57343 units/L (55-170) H 07/30/17 04:20 Total Protein 6.2 g/dL (6.3-8.2) L 07/30/17 04:20 Albumin 3.7 g/dL (3.9-5) L 07/30/17 04:20 Albumin/Globulin Ratio 1.5 % 07/30/17 04:20 Urine Color Yellow (Yellow) 07/27/17 23:45 Urine Turbidity Clear (Clear) 07/27/17 23:45 Urine pH 6.0 (5.0-7.0) 07/27/17 23:45 Ur Specific [place] 1.012 (1.003-1.030) 07/27/17 23:45 Urine Protein <15 mg/dl mg/dL (Negative) 07/27/17 23:45 Urine Glucose (UA) Neg mg/dL (Negative) 07/27/17 23:45 Urine Ketones Neg mg/dL (Negative) 07/27/17 23:45 Urine Blood Mod (Negative) 07/27/17 23:45 Urine Nitrite Neg (Negative) 07/27/17 23:45 Urine Bilirubin Neg (Negative) 07/27/17 23:45 Urine Urobilinogen < 2.0 mg/dL (<2.0) 07/27/17 23:45 Ur Leukocyte Esterase Neg (Negative) 07/27/17 23:45 Urine WBC (Auto) 2.0 /HPF (0.0-6.0) 07/27/17 23:45 Urine RBC (Auto) 5.0 /HPF (0.0-6.0) 07/27/17 23:45 Urine Mucus Few /HPF 07/27/17 23:45 Urine Creatinine 88.9 mg/dL (0.1-20.0) H 07/27/17 23:45 Urine Sodium 69 mmol/L 07/27/17 23:45 Fraction Sodium Excret 1.5 07/27/17 23:45 <LENNY VAUGHAN - Last Filed: 07/31/17 05:58> Assessment and Plan Assessment and plan: I saw and evaluated the patient. I agree with the findings and the plan of care as documented in the Nurse Practitioner's~note, with the following corrections and additions. Patient with rhabdomyolysis, seizures, encephalopathy. Continue current management. Hospitalist Physical - Constitutional Vitals: Temp Pulse Resp BP Pulse Ox 97.3 F L 66 18 142/80 100 07/30/17 20:06 07/31/17 01:48 07/30/17 22:00 07/30/17 20:06 07/30/17 22:00 Results - Labs CBC & Chem 7: 07/30/17 04:20 07/30/17 04:20 Labs: Laboratory Last Values WBC 6.2 K/mm3 (4.5-11.0) 07/30/17 04:20 RBC 4.23 M/mm3 (3.65-5.03) 07/30/17 04:20 Hgb 11.6 gm/dl (11.8-15.2) L 07/30/17 04:20 Hct 36.7 % (35.5-45.6) 07/30/17 04:20 MCV 87 fl (84-94) 07/30/17 04:20 MCH 27 pg (28-32) L 07/30/17 04:20 MCHC 32 % (32-34) 07/30/17 04:20 RDW 15.8 % (13.2-15.2) H 07/30/17 04:20 Plt Count 218 K/mm3 (140-440) 07/30/17 04:20 Lymph % (Auto) 10.9 % (13.4-35.0) L 07/28/17 06:32 [place] % (Auto) 10.5 % (0.0-7.3) H 07/28/17 06:32 Eos % (Auto) 0.1 % (0.0-4.3) 07/28/17 06:32 Baso % (Auto) 0.8 % (0.0-1.8) 07/28/17 06:32 Lymph # 1.3 K/mm3 (1.2-5.4) 07/28/17 06:32 [place] # 1.2 K/mm3 (0.0-0.8) H 07/28/17 06:32 Eos # 0.0 K/mm3 (0.0-0.4) 07/28/17 06:32 Baso # 0.1 K/mm3 (0.0-0.1) 07/28/17 06:32 Seg Neutrophils % 77.7 % (40.0-70.0) H 07/28/17 06:32 Seg Neutrophils # 9.1 K/mm3 (1.8-7.7) H 07/28/17 06:32 PT 13.7 Sec. (12.2-14.9) 07/28/17 06:32 INR 1.00 (0.87-1.13) 07/28/17 06:32 Sodium 148 mmol/L (137-145) H 07/30/17 04:20 Potassium 3.8 mmol/L (3.6-5.0) 07/30/17 04:20 Chloride 109.7 mmol/L (98-107) H 07/30/17 04:20 Carbon Dioxide 24 mmol/L (22-30) 07/30/17 04:20 Anion Gap 18 mmol/L 07/30/17 04:20 BUN 19 mg/dL (9-20) 07/30/17 04:20 Creatinine 1.2 mg/dL (0.8-1.5) 07/30/17 04:20 Estimated GFR > 60 ml/min 07/30/17 04:20 BUN/Creatinine Ratio 16 % 07/30/17 04:20 Glucose 105 mg/dL (75-100) H 07/30/17 04:20 POC Glucose 93 (70-105) 07/31/17 02:40 Calcium 8.4 mg/dL (8.4-10.2) 07/30/17 04:20 Magnesium 3.20 mg/dL (1.7-2.3) H 07/27/17 10:48 Total Bilirubin 0.80 mg/dL (0.1-1.2) 07/30/17 04:20 AST 145 units/L (5-40) H 07/30/17 04:20 ALT 59 units/L (7-56) H 07/30/17 04:20 Alkaline Phosphatase 60 units/L (35-129) 07/30/17 04:20 Total Creatine Kinase 95345 units/L (55-170) H 07/30/17 04:20 Total Protein 6.2 g/dL (6.3-8.2) L 07/30/17 04:20 Albumin 3.7 g/dL (3.9-5) L 07/30/17 04:20 Albumin/Globulin Ratio 1.5 % 07/30/17 04:20 Urine Color Yellow (Yellow) 07/27/17 23:45 Urine Turbidity Clear (Clear) 07/27/17 23:45 Urine pH 6.0 (5.0-7.0) 07/27/17 23:45 Ur Specific [place] 1.012 (1.003-1.030) 07/27/17 23:45 Urine Protein <15 mg/dl mg/dL (Negative) 07/27/17 23:45 Urine Glucose (UA) Neg mg/dL (Negative) 07/27/17 23:45 Urine Ketones Neg mg/dL (Negative) 07/27/17 23:45 Urine Blood Mod (Negative) 07/27/17 23:45 Urine Nitrite Neg (Negative) 07/27/17 23:45 Urine Bilirubin Neg (Negative) 07/27/17 23:45 Urine Urobilinogen < 2.0 mg/dL (<2.0) 07/27/17 23:45 Ur Leukocyte Esterase Neg (Negative) 07/27/17 23:45 Urine WBC (Auto) 2.0 /HPF (0.0-6.0) 07/27/17 23:45 Urine RBC (Auto) 5.0 /HPF (0.0-6.0) 07/27/17 23:45 Urine Mucus Few /HPF 07/27/17 23:45 Urine Creatinine 88.9 mg/dL (0.1-20.0) H 07/27/17 23:45 Urine Sodium 69 mmol/L 07/27/17 23:45 Fraction Sodium Excret 1.5 07/27/17 23:45
[2017-07-31 06:26] LABS: Alanine Aminotransferase 48 units/L (7-56); Albumin 3.5 g/dL (3.9-5); Albumin/Globulin Ratio 1.4 %; Alkaline Phosphatase 59 units/L (35-129); Anion Gap 18 mmol/L; BUN/Creatinine Ratio 15; Blood Urea Nitrogen 16 mg/dL (9-20); Calcium 8.4 mg/dL (8.4-10.2); Carbon Dioxide 23 mmol/L (22-30); Chloride 105.2 mmol/L (98-107); Glucose 102 mg/dL (75-100); Potassium 3.5 mmol/L (3.6-5.0); Sodium 143 mmol/L (137-145)
--- NOTE | 2017-07-31 09:56 | Progress Note ---
<RUSSEL JAVIER R - Last Filed: 07/31/17 22:16> Assessment and Plan Assessment and plan: I saw and evaluated the patient. I agree with the findings and the plan of care as documented in the Nurse Practitioner's~note, with the following corrections and additions. Patient also has oropharyngeal dysphagia. ST recommended NPO. will place on dobhoff and start on TF. Will also order MRI brain. Patient has h/o multiple CVA in the past. Will cont aspirin and statin with TF. Hospitalist Physical - Constitutional Vitals: Temp Pulse Resp BP Pulse Ox 97.6 F 69 18 125/62 93 07/31/17 19:44 07/31/17 19:48 07/31/17 19:44 07/31/17 19:44 07/31/17 19:48 Results - Labs CBC & Chem 7: 07/30/17 04:20 07/31/17 05:02 Labs: Laboratory Last Values WBC 6.2 K/mm3 (4.5-11.0) 07/30/17 04:20 RBC 4.23 M/mm3 (3.65-5.03) 07/30/17 04:20 Hgb 11.6 gm/dl (11.8-15.2) L 07/30/17 04:20 Hct 36.7 % (35.5-45.6) 07/30/17 04:20 MCV 87 fl (84-94) 07/30/17 04:20 MCH 27 pg (28-32) L 07/30/17 04:20 MCHC 32 % (32-34) 07/30/17 04:20 RDW 15.8 % (13.2-15.2) H 07/30/17 04:20 Plt Count 218 K/mm3 (140-440) 07/30/17 04:20 Lymph % (Auto) 10.9 % (13.4-35.0) L 07/28/17 06:32 [place] % (Auto) 10.5 % (0.0-7.3) H 07/28/17 06:32 Eos % (Auto) 0.1 % (0.0-4.3) 07/28/17 06:32 Baso % (Auto) 0.8 % (0.0-1.8) 07/28/17 06:32 Lymph # 1.3 K/mm3 (1.2-5.4) 07/28/17 06:32 [place] # 1.2 K/mm3 (0.0-0.8) H 07/28/17 06:32 Eos # 0.0 K/mm3 (0.0-0.4) 07/28/17 06:32 Baso # 0.1 K/mm3 (0.0-0.1) 07/28/17 06:32 Seg Neutrophils % 77.7 % (40.0-70.0) H 07/28/17 06:32 Seg Neutrophils # 9.1 K/mm3 (1.8-7.7) H 07/28/17 06:32 PT 13.7 Sec. (12.2-14.9) 07/28/17 06:32 INR 1.00 (0.87-1.13) 07/28/17 06:32 Sodium 143 mmol/L (137-145) 07/31/17 05:02 Potassium 3.5 mmol/L (3.6-5.0) L 07/31/17 05:02 Chloride 105.2 mmol/L (98-107) 07/31/17 05:02 Carbon Dioxide 23 mmol/L (22-30) 07/31/17 05:02 Anion Gap 18 mmol/L 07/31/17 05:02 BUN 16 mg/dL (9-20) 07/31/17 05:02 Creatinine 1.1 mg/dL (0.8-1.5) 07/31/17 05:02 Estimated GFR > 60 ml/min 07/31/17 05:02 BUN/Creatinine Ratio 15 % 07/31/17 05:02 Glucose 102 mg/dL (75-100) H 07/31/17 05:02 POC Glucose 72 (70-105) 07/31/17 17:49 Calcium 8.4 mg/dL (8.4-10.2) 07/31/17 05:02 Magnesium 3.20 mg/dL (1.7-2.3) H 07/27/17 10:48 Total Bilirubin 0.80 mg/dL (0.1-1.2) 07/31/17 05:02 AST 84 units/L (5-40) H 07/31/17 05:02 ALT 48 units/L (7-56) 07/31/17 05:02 Alkaline Phosphatase 59 units/L (35-129) 07/31/17 05:02 Total Creatine Kinase 6615 units/L (55-170) H 07/31/17 05:02 Total Protein 6.0 g/dL (6.3-8.2) L 07/31/17 05:02 Albumin 3.5 g/dL (3.9-5) L 07/31/17 05:02 Albumin/Globulin Ratio 1.4 % 07/31/17 05:02 Urine Color Yellow (Yellow) 07/27/17 23:45 Urine Turbidity Clear (Clear) 07/27/17 23:45 Urine pH 6.0 (5.0-7.0) 07/27/17 23:45 Ur Specific [place] 1.012 (1.003-1.030) 07/27/17 23:45 Urine Protein <15 mg/dl mg/dL (Negative) 07/27/17 23:45 Urine Glucose (UA) Neg mg/dL (Negative) 07/27/17 23:45 Urine Ketones Neg mg/dL (Negative) 07/27/17 23:45 Urine Blood Mod (Negative) 07/27/17 23:45 Urine Nitrite Neg (Negative) 07/27/17 23:45 Urine Bilirubin Neg (Negative) 07/27/17 23:45 Urine Urobilinogen < 2.0 mg/dL (<2.0) 07/27/17 23:45 Ur Leukocyte Esterase Neg (Negative) 07/27/17 23:45 Urine WBC (Auto) 2.0 /HPF (0.0-6.0) 07/27/17 23:45 Urine RBC (Auto) 5.0 /HPF (0.0-6.0) 07/27/17 23:45 Urine Mucus Few /HPF 07/27/17 23:45 Urine Creatinine 88.9 mg/dL (0.1-20.0) H 07/27/17 23:45 Urine Sodium 69 mmol/L 07/27/17 23:45 Fraction Sodium Excret 1.5 07/27/17 23:45 <ROSIO OSEI - Last Filed: 08/01/17 14:25> Assessment and Plan Assessment and plan: The patient is a 71-year-old male presented with a chief complaint of seizure. assisted nurse who states that the patient reportedly had a seizure at 05: 30. The patient was administered Ativan 0.25 mg IM. The senior living physician was paged and eventually instructed staff to send the patient to the ED for evaluation. EMS was called and upon their arrival at 08:30 the patient reportedly had a second generalized tonic-clonic seizure and was administered a second dose of Ativan 0.25 mg IM. Staff says the patient is normally ambulatory and able to speak. Assessment and Plan Encephalopathy acute Sec to recurrent seizures. Improving. On Keppra. Monitor mental status Seizure Cont Keppra IV and transition to po Keppra Continue PO Keppra MARC (acute kidney injury) Likely Rhabdomyelysis. continue with IV fluids IV fluids, urine lytes and kidney US. Nephrology following HTN (hypertension - Cont Antihypertensives HLD (hyperlipidemia) - Cont statins (generalized anxiety disorder) Cont Lorazepam Alcohol Use d/o CIWA protocal Leukocytosis Resolved DVT prophylaxis SCDs, Lovenox History Interval history: Patient is awake, alert and oriented to person and place. He denies SOB, CH, NVD Hospitalist Physical - Constitutional Vitals: Temp Pulse Resp BP Pulse Ox 98.7 F 63 18 113/61 96 07/31/17 08:12 07/31/17 08:12 07/31/17 08:12 07/31/17 08:12 07/31/17 09:23 General appearance: Present: no acute distress, well-nourished Results - Labs CBC & Chem 7: 07/30/17 04:20 08/01/17 05:05 Labs: Laboratory Last Values WBC 6.2 K/mm3 (4.5-11.0) 07/30/17 04:20 RBC 4.23 M/mm3 (3.65-5.03) 07/30/17 04:20 Hgb 11.6 gm/dl (11.8-15.2) L 07/30/17 04:20 Hct 36.7 % (35.5-45.6) 07/30/17 04:20 MCV 87 fl (84-94) 07/30/17 04:20 MCH 27 pg (28-32) L 07/30/17 04:20 MCHC 32 % (32-34) 07/30/17 04:20 RDW 15.8 % (13.2-15.2) H 07/30/17 04:20 Plt Count 218 K/mm3 (140-440) 07/30/17 04:20 Lymph % (Auto) 10.9 % (13.4-35.0) L 07/28/17 06:32 [place] % (Auto) 10.5 % (0.0-7.3) H 07/28/17 06:32 Eos % (Auto) 0.1 % (0.0-4.3) 07/28/17 06:32 Baso % (Auto) 0.8 % (0.0-1.8) 07/28/17 06:32 Lymph # 1.3 K/mm3 (1.2-5.4) 07/28/17 06:32 [place] # 1.2 K/mm3 (0.0-0.8) H 07/28/17 06:32 Eos # 0.0 K/mm3 (0.0-0.4) 07/28/17 06:32 Baso # 0.1 K/mm3 (0.0-0.1) 07/28/17 06:32 Seg Neutrophils % 77.7 % (40.0-70.0) H 07/28/17 06:32 Seg Neutrophils # 9.1 K/mm3 (1.8-7.7) H 07/28/17 06:32 PT 13.7 Sec. (12.2-14.9) 07/28/17 06:32 INR 1.00 (0.87-1.13) 07/28/17 06:32 Sodium 143 mmol/L (137-145) 07/31/17 05:02 Potassium 3.5 mmol/L (3.6-5.0) L 07/31/17 05:02 Chloride 105.2 mmol/L (98-107) 07/31/17 05:02 Carbon Dioxide 23 mmol/L (22-30) 07/31/17 05:02 Anion Gap 18 mmol/L 07/31/17 05:02 BUN 16 mg/dL (9-20) 07/31/17 05:02 Creatinine 1.1 mg/dL (0.8-1.5) 07/31/17 05:02 Estimated GFR > 60 ml/min 07/31/17 05:02 BUN/Creatinine Ratio 15 % 07/31/17 05:02 Glucose 102 mg/dL (75-100) H 07/31/17 05:02 POC Glucose 93 (70-105) 07/31/17 02:40 Calcium 8.4 mg/dL (8.4-10.2) 07/31/17 05:02 Magnesium 3.20 mg/dL (1.7-2.3) H 07/27/17 10:48 Total Bilirubin 0.80 mg/dL (0.1-1.2) 07/31/17 05:02 AST 84 units/L (5-40) H 07/31/17 05:02 ALT 48 units/L (7-56) 07/31/17 05:02 Alkaline Phosphatase 59 units/L (35-129) 07/31/17 05:02 Total Creatine Kinase 6615 units/L (55-170) H 07/31/17 05:02 Total Protein 6.0 g/dL (6.3-8.2) L 07/31/17 05:02 Albumin 3.5 g/dL (3.9-5) L 07/31/17 05:02 Albumin/Globulin Ratio 1.4 % 07/31/17 05:02 Urine Color Yellow (Yellow) 07/27/17 23:45 Urine Turbidity Clear (Clear) 07/27/17 23:45 Urine pH 6.0 (5.0-7.0) 07/27/17 23:45 Ur Specific [place] 1.012 (1.003-1.030) 07/27/17 23:45 Urine Protein <15 mg/dl mg/dL (Negative) 07/27/17 23:45 Urine Glucose (UA) Neg mg/dL (Negative) 07/27/17 23:45 Urine Ketones Neg mg/dL (Negative) 07/27/17 23:45 Urine Blood Mod (Negative) 07/27/17 23:45 Urine Nitrite Neg (Negative) 07/27/17 23:45 Urine Bilirubin Neg (Negative) 07/27/17 23:45 Urine Urobilinogen < 2.0 mg/dL (<2.0) 07/27/17 23:45 Ur Leukocyte Esterase Neg (Negative) 07/27/17 23:45 Urine WBC (Auto) 2.0 /HPF (0.0-6.0) 07/27/17 23:45 Urine RBC (Auto) 5.0 /HPF (0.0-6.0) 07/27/17 23:45 Urine Mucus Few /HPF 07/27/17 23:45 Urine Creatinine 88.9 mg/dL (0.1-20.0) H 07/27/17 23:45 Urine Sodium 69 mmol/L 07/27/17 23:45 Fraction Sodium Excret 1.5 07/27/17 23:45
[2017-07-31] MEDS: LOVENOX SUB-Q SCH (12:51)
[2017-07-31] MEDS: ASPIRIN PO SCH (12:52)
[2017-07-31] MEDS: NORVASC PO SCH (12:52)
[2017-07-31] MEDS: KEPPRA 750 MG in NACL 0.9% 100 ML IV SCH ×2 (13:11→22:35)
--- NOTE | 2017-07-31 13:58 | Progress Note ---
Subjective Principal diagnosis: Seizure d/o, Rhabdomyelysis, MARC from tubular necrosis Objective - Vital Signs Vital signs: Vital Signs - 12hr 07/31/17 07/31/17 07/31/17 01:48 05:30 05:47 Temperature 98.6 F 98.9 F Pulse Rate 66 60 71 Respiratory 20 20 Rate Blood Pressure 119/66 195/72 O2 Sat by Pulse 87 100 Oximetry 07/31/17 07/31/17 07/31/17 08:12 09:23 12:52 Temperature 98.7 F Pulse Rate 63 63 Respiratory 18 Rate Blood Pressure 113/61 113/61 O2 Sat by Pulse 98 96 Oximetry - Lab 07/30/17 04:20 07/31/17 05:02 Most recent lab results Calcium 8.4 mg/dL (8.4-10.2) 07/31/17 05:02 Magnesium 3.20 mg/dL (1.7-2.3) H 07/27/17 10:48 Urine Creatinine 88.9 mg/dL (0.1-20.0) H 07/27/17 23:45 Urine Sodium 69 mmol/L 07/27/17 23:45
--- NOTE | 2017-07-31 15:47 | Progress Note ---
Assessment and Plan Impression * Acute renal failure. Probably prerenal. He may have rhabdomyolysis as well * Seizure disorder * Hypertension * Hyperlipidemia * hyperkalemia * hypernatremia Recommendations * Continue IV hydration--D5W, Na is better today * add iv potassium repletion * advance diet * cr is better today * added kayexalate x one--k is better today * Renal ultrasound noted--no hydro * If patient has active urine sediment and/or if renal function continues to deteriorate, shall do additional workup * Avoid nephrotoxins * Discontinue ibuprofen * Monitor patient's fluid status and electrolytes closely Subjective Date of service: 07/31/17 Principal diagnosis: Seizure d/o, Rhabdomyolysis, MARC from tubular necrosis Interval history: resting well in bed today Objective - Exam Narrative Exam: General appearance: well-developed, well-nourished, appears stated age EENT: PERRL, mucous membranes moist Neck: Present: neck supple, trachea midline. Absent: JVD/HJR, Masses Respiratory: Clear to Ascultation Heart: regular, normal heart rate, S1S2, no murmurs Gastrointestinal: Present: normal, normoactive bowel sounds Integumentary: no rash, other (no edema) - Vital Signs Vital signs: Vital Signs - 12hr 07/31/17 07/31/17 07/31/17 05:30 05:47 08:12 Temperature 98.6 F 98.9 F 98.7 F Pulse Rate 60 71 63 Respiratory 20 20 18 Rate Blood Pressure 119/66 195/72 113/61 O2 Sat by Pulse 87 100 98 Oximetry 07/31/17 07/31/17 09:23 12:52 Temperature Pulse Rate 63 Respiratory Rate Blood Pressure 113/61 O2 Sat by Pulse 96 Oximetry - Lab 07/30/17 04:20 07/31/17 05:02 Most recent lab results Calcium 8.4 mg/dL (8.4-10.2) 07/31/17 05:02 Magnesium 3.20 mg/dL (1.7-2.3) H 07/27/17 10:48 Urine Creatinine 88.9 mg/dL (0.1-20.0) H 07/27/17 23:45 Urine Sodium 69 mmol/L 07/27/17 23:45
[2017-07-31] MEDS ORDERED: ATIVAN IM PRN (16:05)
[2017-07-31] MEDS: D5W 1,000 ML with KCL 20 MEQ IV SCH (17:31)
[2017-07-31] MEDS ORDERED: PANCREAZE DR 10,500 UNIT FEEDTUBE PRN (22:13)
[2017-07-31] MEDS ORDERED: SIMPLE SYRUP FEEDTUBE PRN ×2 (22:13)
[2017-07-31] MEDS ORDERED: SODIUM BICARBONATE FEEDTUBE PRN (22:13)
[2017-08-01] MEDS: D5W 1,000 ML with KCL 20 MEQ IV SCH (05:47)
[2017-08-01 06:02] LABS: Alanine Aminotransferase 41 units/L (7-56); Albumin 3.4 g/dL (3.9-5); Alkaline Phosphatase 56 units/L (35-129); Anion Gap 18 mmol/L; BUN/Creatinine Ratio 17; Blood Urea Nitrogen 20 mg/dL (9-20); Calcium 8.5 mg/dL (8.4-10.2); Carbon Dioxide 22 mmol/L (22-30); Chloride 103.1 mmol/L (98-107); Glucose 89 mg/dL (75-100); Potassium 3.7 mmol/L (3.6-5.0); Sodium 139 mmol/L (137-145)
[2017-08-01 06:14] LABS: Creatine Kinase 3305 units/L (55-170)
[2017-08-01 06:25] LABS: Albumin/Globulin Ratio 1.1 %; Total Protein 6.3 g/dL (6.3-8.2)
--- NOTE | 2017-08-01 10:12 | Progress Note ---
<ROSIO OSEI - Last Filed: 08/01/17 14:22> Assessment and Plan Assessment and plan: The patient is a 71-year-old male presented with a chief complaint of seizure. [facility] nurse who states that the patient reportedly had a seizure at 05: 30. The patient was administered Ativan 0.25 mg IM. The [facility] physician was paged and eventually instructed staff to send the patient to the ED for evaluation. EMS was called and upon their arrival at 08:30 the patient reportedly had a second generalized tonic-clonic seizure and was administered a second dose of Ativan 0.25 mg IM. Staff says the patient is normally ambulatory and able to speak. Assessment and Plan Encephalopathy acute Sec to recurrent seizures. Improving. On Keppra. Monitor mental status Repeat MBS ordered to assess patient's ability to tolerate PO diet Seizure Cont Keppra IV and transition to po Keppra Continue PO Keppra MARC (acute kidney injury) Likely Rhabdomyelysis-CK continues to trend down IV fluids, urine lytes and kidney US. Nephrology following Oropharyngeal dysphagia ST recommended NPO. Pt placed on dobhoff and start on TF Will also order MRI brain. Patient has h/o multiple CVA in the past. Will cont aspirin and statin with TF. HTN (hypertension - Cont Antihypertensives HLD (hyperlipidemia) - Cont statins (generalized anxiety disorder) Cont Lorazepam Alcohol Use d/o CIWA protocal Leukocytosis Resolved DVT prophylaxis SCDs, Lovenox History Interval history: Patient is awake, alert and oriented to person and place. He denies SOB, CH, NVD. Hospitalist Physical - Constitutional Vitals: Temp Pulse Resp BP Pulse Ox 98.7 F 63 18 105/61 97 08/01/17 08:13 08/01/17 08:13 08/01/17 08:13 08/01/17 08:13 08/01/17 09:18 General appearance: Present: no acute distress, well-nourished - EENT Eyes: Present: PERRL, EOM intact ENT: hearing intact, clear oral mucosa, edentulous - Neck Neck: Present: supple, normal ROM - Respiratory Respiratory effort: normal Respiratory: bilateral: CTA - Cardiovascular Rhythm: regular Heart Sounds: Present: S1 & S2 - Extremities Extremities: no ischemia, No edema Peripheral Pulses: within normal limits - Abdominal General gastrointestinal: soft, non-tender - Integumentary Integumentary: Present: clear, warm - Psychiatric Psychiatric: appropriate mood/affect, cooperative - Neurologic Neurologic: CNII-XII intact, moves all extremities - Allied Health Allied health notes reviewed: nursing Results - Labs CBC & Chem 7: 07/30/17 04:20 08/01/17 05:05 Labs: Laboratory Last Values WBC 6.2 K/mm3 (4.5-11.0) 07/30/17 04:20 RBC 4.23 M/mm3 (3.65-5.03) 07/30/17 04:20 Hgb 11.6 gm/dl (11.8-15.2) L 07/30/17 04:20 Hct 36.7 % (35.5-45.6) 07/30/17 04:20 MCV 87 fl (84-94) 07/30/17 04:20 MCH 27 pg (28-32) L 07/30/17 04:20 MCHC 32 % (32-34) 07/30/17 04:20 RDW 15.8 % (13.2-15.2) H 07/30/17 04:20 Plt Count 218 K/mm3 (140-440) 07/30/17 04:20 Lymph % (Auto) 10.9 % (13.4-35.0) L 07/28/17 06:32 [place] % (Auto) 10.5 % (0.0-7.3) H 07/28/17 06:32 Eos % (Auto) 0.1 % (0.0-4.3) 07/28/17 06:32 Baso % (Auto) 0.8 % (0.0-1.8) 07/28/17 06:32 Lymph # 1.3 K/mm3 (1.2-5.4) 07/28/17 06:32 [place] # 1.2 K/mm3 (0.0-0.8) H 07/28/17 06:32 Eos # 0.0 K/mm3 (0.0-0.4) 07/28/17 06:32 Baso # 0.1 K/mm3 (0.0-0.1) 07/28/17 06:32 Seg Neutrophils % 77.7 % (40.0-70.0) H 07/28/17 06:32 Seg Neutrophils # 9.1 K/mm3 (1.8-7.7) H 07/28/17 06:32 PT 13.7 Sec. (12.2-14.9) 07/28/17 06:32 INR 1.00 (0.87-1.13) 07/28/17 06:32 Sodium 139 mmol/L (137-145) 08/01/17 05:05 Potassium 3.7 mmol/L (3.6-5.0) 08/01/17 05:05 Chloride 103.1 mmol/L (98-107) 08/01/17 05:05 Carbon Dioxide 22 mmol/L (22-30) 08/01/17 05:05 Anion Gap 18 mmol/L 08/01/17 05:05 BUN 20 mg/dL (9-20) 08/01/17 05:05 Creatinine 1.2 mg/dL (0.8-1.5) 08/01/17 05:05 Estimated GFR > 60 ml/min 08/01/17 05:05 BUN/Creatinine Ratio 17 % 08/01/17 05:05 Glucose 89 mg/dL (75-100) 08/01/17 05:05 POC Glucose 95 (70-105) 08/01/17 07:18 Calcium 8.5 mg/dL (8.4-10.2) 08/01/17 05:05 Magnesium 3.20 mg/dL (1.7-2.3) H 07/27/17 10:48 Total Bilirubin 0.60 mg/dL (0.1-1.2) 08/01/17 05:05 AST 55 units/L (5-40) H 08/01/17 05:05 ALT 41 units/L (7-56) 08/01/17 05:05 Alkaline Phosphatase 56 units/L (35-129) 08/01/17 05:05 Total Creatine Kinase 3305 units/L (55-170) H 08/01/17 05:05 Total Protein 6.3 g/dL (6.3-8.2) 08/01/17 05:05 Albumin 3.4 g/dL (3.9-5) L 08/01/17 05:05 Albumin/Globulin Ratio 1.1 % 08/01/17 05:05 Urine Color Yellow (Yellow) 07/27/17 23:45 Urine Turbidity Clear (Clear) 07/27/17 23:45 Urine pH 6.0 (5.0-7.0) 07/27/17 23:45 Ur Specific [place] 1.012 (1.003-1.030) 07/27/17 23:45 Urine Protein <15 mg/dl mg/dL (Negative) 07/27/17 23:45 Urine Glucose (UA) Neg mg/dL (Negative) 07/27/17 23:45 Urine Ketones Neg mg/dL (Negative) 07/27/17 23:45 Urine Blood Mod (Negative) 07/27/17 23:45 Urine Nitrite Neg (Negative) 07/27/17 23:45 Urine Bilirubin Neg (Negative) 07/27/17 23:45 Urine Urobilinogen < 2.0 mg/dL (<2.0) 07/27/17 23:45 Ur Leukocyte Esterase Neg (Negative) 07/27/17 23:45 Urine WBC (Auto) 2.0 /HPF (0.0-6.0) 07/27/17 23:45 Urine RBC (Auto) 5.0 /HPF (0.0-6.0) 07/27/17 23:45 Urine Mucus Few /HPF 07/27/17 23:45 Urine Creatinine 88.9 mg/dL (0.1-20.0) H 07/27/17 23:45 Urine Sodium 69 mmol/L 07/27/17 23:45 Fraction Sodium Excret 1.5 07/27/17 23:45 <RUSSEL JAVIER R - Last Filed: 08/01/17 15:55> Assessment and Plan Assessment and plan: I saw and evaluated the patient. I agree with the findings and the plan of care as documented in the Nurse Practitioner's~note, with the following corrections and additions. Encephalopathy acute Sec to recurrent seizures. now at baseline On Keppra. Monitor mental status Seizure disorder Cont Keppra IV and transitioned to po Keppra Continue PO Keppra MARC (acute kidney injury) Likely Rhabdomyelysis- CK continues to trend down IV fluids, urine lytes and kidney US ordered. Nephrology following Oropharyngeal dysphagia ST recommended NPO, but the test was done 2 days earlier. His mental status improved better and did well with bedside screening will repeat MBS and cont on pureed diet and thickened liquid HTN (hypertension - Cont Antihypertensives HLD (hyperlipidemia) - Cont statins Generalized anxiety disorder Cont Lorazepam Alcohol Use d/o on CIWA protocal with librium Leukocytosis Resolved DVT prophylaxis Lovenox Hospitalist Physical - Constitutional Vitals: Temp Pulse Resp BP Pulse Ox 98.4 F 63 18 108/52 98 08/01/17 13:53 08/01/17 13:53 08/01/17 13:53 08/01/17 13:53 08/01/17 13:53 Results - Labs CBC & Chem 7: 07/30/17 04:20 08/01/17 05:05 Labs: Laboratory Last Values WBC 6.2 K/mm3 (4.5-11.0) 07/30/17 04:20 RBC 4.23 M/mm3 (3.65-5.03) 07/30/17 04:20 Hgb 11.6 gm/dl (11.8-15.2) L 07/30/17 04:20 Hct 36.7 % (35.5-45.6) 07/30/17 04:20 MCV 87 fl (84-94) 07/30/17 04:20 MCH 27 pg (28-32) L 07/30/17 04:20 MCHC 32 % (32-34) 07/30/17 04:20 RDW 15.8 % (13.2-15.2) H 07/30/17 04:20 Plt Count 218 K/mm3 (140-440) 07/30/17 04:20 Lymph % (Auto) 10.9 % (13.4-35.0) L 07/28/17 06:32 [place] % (Auto) 10.5 % (0.0-7.3) H 07/28/17 06:32 Eos % (Auto) 0.1 % (0.0-4.3) 07/28/17 06:32 Baso % (Auto) 0.8 % (0.0-1.8) 07/28/17 06:32 Lymph # 1.3 K/mm3 (1.2-5.4) 07/28/17 06:32 [place] # 1.2 K/mm3 (0.0-0.8) H 07/28/17 06:32 Eos # 0.0 K/mm3 (0.0-0.4) 07/28/17 06:32 Baso # 0.1 K/mm3 (0.0-0.1) 07/28/17 06:32 Seg Neutrophils % 77.7 % (40.0-70.0) H 07/28/17 06:32 Seg Neutrophils # 9.1 K/mm3 (1.8-7.7) H 07/28/17 06:32 PT 13.7 Sec. (12.2-14.9) 07/28/17 06:32 INR 1.00 (0.87-1.13) 07/28/17 06:32 Sodium 139 mmol/L (137-145) 08/01/17 05:05 Potassium 3.7 mmol/L (3.6-5.0) 08/01/17 05:05 Chloride 103.1 mmol/L (98-107) 08/01/17 05:05 Carbon Dioxide 22 mmol/L (22-30) 08/01/17 05:05 Anion Gap 18 mmol/L 08/01/17 05:05 BUN 20 mg/dL (9-20) 08/01/17 05:05 Creatinine 1.2 mg/dL (0.8-1.5) 08/01/17 05:05 Estimated GFR > 60 ml/min 08/01/17 05:05 BUN/Creatinine Ratio 17 % 08/01/17 05:05 Glucose 89 mg/dL (75-100) 08/01/17 05:05 POC Glucose 88 (70-105) 08/01/17 11:57 Calcium 8.5 mg/dL (8.4-10.2) 08/01/17 05:05 Magnesium 3.20 mg/dL (1.7-2.3) H 07/27/17 10:48 Total Bilirubin 0.60 mg/dL (0.1-1.2) 08/01/17 05:05 AST 55 units/L (5-40) H 08/01/17 05:05 ALT 41 units/L (7-56) 08/01/17 05:05 Alkaline Phosphatase 56 units/L (35-129) 08/01/17 05:05 Total Creatine Kinase 3305 units/L (55-170) H 08/01/17 05:05 Total Protein 6.3 g/dL (6.3-8.2) 08/01/17 05:05 Albumin 3.4 g/dL (3.9-5) L 08/01/17 05:05 Albumin/Globulin Ratio 1.1 % 08/01/17 05:05 Urine Color Yellow (Yellow) 07/27/17 23:45 Urine Turbidity Clear (Clear) 07/27/17 23:45 Urine pH 6.0 (5.0-7.0) 07/27/17 23:45 Ur Specific [place] 1.012 (1.003-1.030) 07/27/17 23:45 Urine Protein <15 mg/dl mg/dL (Negative) 07/27/17 23:45 Urine Glucose (UA) Neg mg/dL (Negative) 07/27/17 23:45 Urine Ketones Neg mg/dL (Negative) 07/27/17 23:45 Urine Blood Mod (Negative) 07/27/17 23:45 Urine Nitrite Neg (Negative) 07/27/17 23:45 Urine Bilirubin Neg (Negative) 07/27/17 23:45 Urine Urobilinogen < 2.0 mg/dL (<2.0) 07/27/17 23:45 Ur Leukocyte Esterase Neg (Negative) 07/27/17 23:45 Urine WBC (Auto) 2.0 /HPF (0.0-6.0) 07/27/17 23:45 Urine RBC (Auto) 5.0 /HPF (0.0-6.0) 07/27/17 23:45 Urine Mucus Few /HPF 07/27/17 23:45 Urine Creatinine 88.9 mg/dL (0.1-20.0) H 07/27/17 23:45 Urine Sodium 69 mmol/L 07/27/17 23:45 Fraction Sodium Excret 1.5 07/27/17 23:45
[2017-08-01] MEDS: LOVENOX SUB-Q SCH (10:35)
[2017-08-01] MEDS: NORVASC PO SCH (10:40)
[2017-08-01] MEDS: ASPIRIN PO SCH (10:40)
[2017-08-01] MEDS ORDERED: PANCREAZE DR 10,500 UNIT FEEDTUBE PRN (11:58)
[2017-08-01] MEDS ORDERED: SODIUM BICARBONATE FEEDTUBE PRN (11:58)
[2017-08-01] MEDS ORDERED: SIMPLE SYRUP FEEDTUBE PRN ×2 (11:58)
[2017-08-01] MEDS: KEPPRA 750 MG in NACL 0.9% 100 ML IV SCH (12:02)
--- NOTE | 2017-08-01 14:58 | Progress Note ---
Assessment and Plan Impression * Acute kidney injury secondary to prerenal azotemia vs component of ATN related to rhabdo --Renal u/s without hydro * Rhabdomyolysis * Seizure disorder * Hypertension * Hyperkalemia - resolved * Hypernatremia - resolved Recommendations * Continue IV hydration--D5W, Na is better today * Medical management of lytes * Avoid nephrotoxins * Discontinue ibuprofen * Monitor patient's fluid status and electrolytes closely Subjective Date of service: 08/01/17 Principal diagnosis: Seizure d/o, Rhabdomyolysis, MARC from tubular necrosis Interval history: Patient has no complaints Objective - Vital Signs Vital signs: Vital Signs - 12hr 08/01/17 08/01/17 08/01/17 03:49 08:13 09:18 Temperature 98.7 F Pulse Rate 78 63 Respiratory 18 Rate Blood Pressure 118/50 105/61 O2 Sat by Pulse 96 100 97 Oximetry 08/01/17 13:53 Temperature 98.4 F Pulse Rate 63 Respiratory 18 Rate Blood Pressure 108/52 O2 Sat by Pulse 98 Oximetry - General Appearance General appearance: well-developed, well-nourished EENT: other (edentuolous) Neck: no JVD Respiratory: Present: Clear to Ascultation Cardiology: regular, S1S2 Gastrointestinal: normal Integumentary: no rash Musculoskeletal: other (no edema) Psychiatric: cooperative - Lab 07/30/17 04:20 08/01/17 05:05 Most recent lab results Calcium 8.5 mg/dL (8.4-10.2) 08/01/17 05:05 Magnesium 3.20 mg/dL (1.7-2.3) H 07/27/17 10:48 Urine Creatinine 88.9 mg/dL (0.1-20.0) H 07/27/17 23:45 Urine Sodium 69 mmol/L 07/27/17 23:45
[2017-08-01] MEDS ORDERED: MORPHINE IV ONE (18:02)
--- NOTE | 2017-08-01 20:23 | XRay Report ---
FINAL REPORT PROCEDURE: XR ABDOMEN 1V AP TECHNIQUE: Single-view abdomen HISTORY: ng tube placement verification COMPARISON: No prior studies are available for comparison. FINDINGS: Dobhoff NGT type tube seen coursing the esophagus with the tip curled in the fundus of the stomach left upper quadrant. Contrast within the decompressed large bowel. IMPRESSION: Nasogastric Dobhoff tube curled in position in the fundus of the stomach
[2017-08-02] MEDS: KEPPRA PO SCH ×3 (00:57→22:35)
--- NOTE | 2017-08-02 06:11 | XRay Report ---
FINAL REPORT EXAM: XR ABDOMEN 1V AP HISTORY: for dobhoff placement TECHNIQUE: A portable upright view of the chest and upper abdomen was obtained. Compare is made to the previous study of 08/01/2017. FINDINGS: The tip of the Dobhoff tube is in the antrum of the stomach. It has advanced since the previous study. The lung bases are clear. The heart size is normal. Residual oral contrast is seen left-sided colon. The bones and soft tissues are unchanged. IMPRESSION: Tip of the Dobhoff tube is now in the antrum of the stomach.
[2017-08-02] MEDS: LOVENOX SUB-Q SCH (10:58)
[2017-08-02] MEDS: ASPIRIN PO SCH (10:59)
[2017-08-02] MEDS: NORVASC PO SCH (10:59)
--- NOTE | 2017-08-02 15:03 | Progress Note ---
Assessment and Plan /Encephalopathy acute Sec to recurrent seizures. Improving. On Keppra. Monitor mental status Repeat MBS ordered to assess patient's ability to tolerate PO diet /Seizure Cont Keppra and as needed ativan /MARC (acute kidney injury) Likely Rhabdomyelysis-CK continues to trend down IV fluids, urine lytes and kidney US. Nephrology following /Oropharyngeal dysphagia ST recommended NPO. Pt placed on dobhoff and start on TF Pending MRI brain. Patient has h/o multiple CVA in the past. Will cont aspirin and statin with TF. discussed with GI, will order MBS /Acute rhabdomyolysis - aries from seizure - cpk trending down /HTN (hypertension - Cont Antihypertensives /HLD (hyperlipidemia) - Cont statins /generalized anxiety disorder Cont Lorazepam /Alcohol Use d/o will d/c CIWA protocol pt resides in SNF /Leukocytosis Resolved /DVT prophylaxis SCDs, Lovenox Brief history: The patient is a 71-year-old male presented with a chief complaint of seizure. [facility] nurse who states that the patient reportedly had a seizure at 05:30. The patient was administered Ativan 0.25 mg IM. The [facility] physician was paged and eventually instructed staff to send the patient to the ED for evaluation. EMS was called and upon their arrival at 08:30 the patient reportedly had a second generalized tonic-clonic seizure and was administered a second dose of Ativan 0.25 mg IM. Staff says the patient is normally ambulatory and able to speak. Hospitalist Physical: General appearance: Present: no acute distress, well-nourished - EENT Eyes: Present: PERRL, EOM intact ENT: hearing intact, clear oral mucosa, edentulous - Neck Neck: Present: supple, normal ROM - Respiratory Respiratory effort: normal Respiratory: bilateral: CTA - Cardiovascular Rhythm: regular Heart Sounds: Present: S1 & S2 - Extremities Extremities: no ischemia, No edema Peripheral Pulses: within normal limits - Abdominal General gastrointestinal: soft, non-tender - Integumentary Integumentary: Present: clear, warm - Psychiatric Psychiatric: appropriate mood/affect, cooperative - Neurologic Neurologic: CNII-XII intact, moves all extremities - Allied Health Allied health notes reviewed: nursing Subjective Date of service: 08/02/17 Principal diagnosis: Seizure d/o, Rhabdomyolysis, MARC from tubular necrosis Interval history: Pt seen and examined wants to eat tolerating TF Objective - Constitutional Vitals: Vital Signs - 12hr 08/02/17 08/02/17 08/02/17 04:05 08:15 10:59 Temperature 98.5 F 98.0 F Pulse Rate 72 69 69 Respiratory 18 18 Rate Blood Pressure 151/90 155/73 155/73 O2 Sat by Pulse 96 97 Oximetry 08/02/17 13:33 Temperature 98.5 F Pulse Rate 64 Respiratory 18 Rate Blood Pressure 132/59 O2 Sat by Pulse 100 Oximetry - Labs CBC & Chem 7: 07/30/17 04:20 08/03/17 04:31 Labs: Abnormal lab results 08/01/17 08/02/17 08/02/17 Range/Units 17:34 05:53 07:18 POC Glucose 119 H 121 H (70-105) Total Creatine Kinase 1959 H (55-170) units/L
--- NOTE | 2017-08-02 17:38 | Progress Note ---
Assessment and Plan Impression * Acute kidney injury secondary to prerenal azotemia vs component of ATN related to rhabdo --Renal u/s without hydro * Rhabdomyolysis * Seizure disorder * Hypertension * Hyperkalemia - resolved * Hypernatremia - resolved Recommendations * No BMP today; CK trending down * Continue IV hydration--change to NS * AM labs ordered for tomorrow am * Medical management of lytes * Avoid nephrotoxins * Discontinue ibuprofen * Monitor patient's fluid status and electrolytes closely Subjective Date of service: 08/02/17 Principal diagnosis: Seizure d/o, Rhabdomyolysis, MARC from tubular necrosis Interval history: Patient has no complaints today. Objective - Vital Signs Vital signs: Vital Signs - 12hr 08/02/17 08/02/17 08/02/17 08:15 10:00 10:59 Temperature 98.0 F Pulse Rate 69 71 69 Respiratory 18 Rate Blood Pressure 155/73 155/73 O2 Sat by Pulse 97 Oximetry 08/02/17 13:33 Temperature 98.5 F Pulse Rate 64 Respiratory 18 Rate Blood Pressure 132/59 O2 Sat by Pulse 100 Oximetry - General Appearance General appearance: well-developed EENT: ATNC, other (NGT in place) Respiratory: Present: Clear to Ascultation Cardiology: regular, S1S2 Gastrointestinal: normal, no tenderness, no distended Musculoskeletal: other (no edema) Psychiatric: cooperative - Lab 07/30/17 04:20 08/01/17 05:05 Most recent lab results Calcium 8.5 mg/dL (8.4-10.2) 08/01/17 05:05 Magnesium 3.20 mg/dL (1.7-2.3) H 07/27/17 10:48 Urine Creatinine 88.9 mg/dL (0.1-20.0) H 07/27/17 23:45 Urine Sodium 69 mmol/L 07/27/17 23:45
[2017-08-02] MEDS: NACL 0.9% 1000 ML 1,000 ML IV SCH (18:17)
[2017-08-03 06:03] LABS: Anion Gap 19 mmol/L; BUN/Creatinine Ratio 13; Blood Urea Nitrogen 13 mg/dL (9-20); Calcium 8.5 mg/dL (8.4-10.2); Carbon Dioxide 20 mmol/L (22-30); Glucose 104 mg/dL (75-100); Potassium 4.4 mmol/L (3.6-5.0); Sodium 142 mmol/L (137-145)
[2017-08-03] MEDS: NACL 0.9% 1000 ML 1,000 ML IV SCH ×2 (07:41→21:07)
[2017-08-03] MEDS: ASPIRIN PO SCH (10:29)
[2017-08-03] MEDS: LOVENOX SUB-Q SCH (10:29)
[2017-08-03] MEDS: KEPPRA PO SCH ×2 (10:29→21:07)
[2017-08-03] MEDS: NORVASC PO SCH (10:30)
--- NOTE | 2017-08-03 12:32 | Progress Note ---
Assessment and Plan Impression * Acute kidney injury secondary to prerenal azotemia vs component of ATN related to rhabdo --Renal u/s without hydro * Rhabdomyolysis * Seizure disorder * Hypertension * Hyperkalemia - resolved * Hypernatremia - resolved Recommendations * Renal function is stable; lytes stable; last CK 1899 * Continue IV hydration * Medical management of lytes * Avoid nephrotoxins * Discontinue ibuprofen * Monitor patient's fluid status and electrolytes closely * Will follow peripherally Subjective Date of service: 08/03/17 Principal diagnosis: Seizure d/o, Rhabdomyolysis, MARC from tubular necrosis Interval history: Patient has no complaints. Objective - Vital Signs Vital signs: Vital Signs - 12hr 08/03/17 08/03/17 08/03/17 05:54 05:55 07:33 Temperature 98.3 F 98.0 F Pulse Rate 28 L 64 64 Respiratory 18 18 Rate Blood Pressure 134/74 124/56 O2 Sat by Pulse 89 92 99 Oximetry 08/03/17 10:30 Temperature Pulse Rate 64 Respiratory Rate Blood Pressure 124/56 O2 Sat by Pulse Oximetry - General Appearance General appearance: well-developed, well-nourished EENT: ATNC Respiratory: Present: Clear to Ascultation Cardiology: regular, S1S2 Gastrointestinal: normal, no tenderness, no distended Integumentary: no rash Musculoskeletal: other (no edema) Psychiatric: cooperative - Lab 07/30/17 04:20 08/03/17 04:31 Most recent lab results Calcium 8.5 mg/dL (8.4-10.2) 08/03/17 04:31 Magnesium 3.20 mg/dL (1.7-2.3) H 07/27/17 10:48 Urine Creatinine 88.9 mg/dL (0.1-20.0) H 07/27/17 23:45 Urine Sodium 69 mmol/L 07/27/17 23:45
--- NOTE | 2017-08-03 13:43 | Event Note ---
Date: 08/03/17 Chart reviewed and patient briefly seen. Care discussed with nurse and hospitalist. Apparently, patient had MBS after being sedated with Ativan per nurse and is now alert. Will await f/u MBS per Dr. Lundberg tomorrow. Will formally consult if patient fails MBS at that point. Thanks
--- NOTE | 2017-08-03 21:41 | Progress Note ---
Assessment and Plan /Encephalopathy acute Sec to recurrent seizures. Improving. On Keppra. Monitor mental status Repeat MBS ordered to assess patient's ability to tolerate PO diet /Seizure Cont Keppra and as needed ativan /MARC (acute kidney injury) Likely Rhabdomyelysis-CK continues to trend down IV fluids, urine lytes and kidney US. Nephrology following /Oropharyngeal dysphagia ST recommended NPO. Pt placed on dobhoff and start on TF Pending MRI brain. Patient has h/o multiple CVA in the past. Will cont aspirin and statin with TF. discussed with GI, plan to do MBS for now if fails MBS again then will need PEG tube /Acute rhabdomyolysis - likley from seizure - cpk trending down /HTN (hypertension - Cont Antihypertensives /HLD (hyperlipidemia) - Cont statins /generalized anxiety disorder Cont Lorazepam /Alcohol Use d/o off CIWA protocol now, cont to monitor pt resides in SNF /Leukocytosis Resolved /h/o CVA, old cont aspirin and statin /DVT prophylaxis SCDs, Lovenox Brief history: The patient is a 71-year-old male presented with a chief complaint of seizure. senior care nurse who states that the patient reportedly had a seizure at 05:30. The patient was administered Ativan 0.25 mg IM. The [facility] physician was paged and eventually instructed staff to send the patient to the ED for evaluation. EMS was called and upon their arrival at 08:30 the patient reportedly had a second generalized tonic-clonic seizure and was administered a second dose of Ativan 0.25 mg IM. Staff says the patient is normally ambulatory and able to speak. Hospitalist Physical: General appearance: Present: no acute distress, well-nourished - EENT Eyes: Present: PERRL, EOM intact ENT: hearing intact, clear oral mucosa, edentulous - Neck Neck: Present: supple, normal ROM - Respiratory Respiratory effort: normal Respiratory: bilateral: CTA - Cardiovascular Rhythm: regular Heart Sounds: Present: S1 & S2 - Extremities Extremities: no ischemia, No edema Peripheral Pulses: within normal limits - Abdominal General gastrointestinal: soft, non-tender - Integumentary Integumentary: Present: clear, warm - Psychiatric Psychiatric: appropriate mood/affect, cooperative - Neurologic Neurologic: CNII-XII intact, moves all extremities - Allied Health Allied health notes reviewed: nursing Subjective Date of service: 08/03/17 Principal diagnosis: Seizure d/o, Rhabdomyolysis, MARC from tubular necrosis Interval history: Pt seen and examined tolerating TF, MBS pending for tomorrow wants to eat Objective - Constitutional Vitals: Vital Signs - 12hr 08/03/17 08/03/17 08/03/17 10:00 10:30 15:26 Temperature 98.1 F Pulse Rate 65 64 63 Respiratory 20 Rate Blood Pressure 124/56 125/64 O2 Sat by Pulse 96 Oximetry - Labs CBC & Chem 7: 07/30/17 04:20 08/04/17 05:08 Labs: Abnormal lab results 08/03/17 08/03/17 08/03/17 Range/Units 04:31 05:48 07:36 Carbon Dioxide 20 L (22-30) mmol/L Glucose 104 H (75-100) mg/dL POC Glucose 110 H 137 H (70-105) 08/03/17 Range/Units 16:45 Carbon Dioxide (22-30) mmol/L Glucose (75-100) mg/dL POC Glucose 118 H (70-105)
[2017-08-04 06:17] LABS: Anion Gap 16 mmol/L; BUN/Creatinine Ratio 14; Blood Urea Nitrogen 15 mg/dL (9-20); Calcium 8.8 mg/dL (8.4-10.2); Carbon Dioxide 22 mmol/L (22-30); Chloride 107.6 mmol/L (98-107); Glucose 99 mg/dL (75-100); Potassium 3.7 mmol/L (3.6-5.0); Sodium 142 mmol/L (137-145)
--- NOTE | 2017-08-04 09:12 | Progress Note ---
Subjective Principal diagnosis: Seizure d/o, Rhabdomyolysis, MARC from tubular necrosis Interval history: Patient was seen today for follow-up, on many renal related issues Patient currently denies having any symptoms of chest pain pressure shortness of breath Better aware about renal related issues patient currently does have an NG tube Interdisciplinary notes were reviewed Vitals labs intake and output medications were reviewed from today Allergies: Reviewed Social history: Reviewed Family history: Reviewed Physical examination HEENT: Oral mucosa moist no pharyngeal erythema Neck: Supple no JVD Chest: Clear to auscultation no crackles rales or wheezes Heart: Regular rate and rhythm S1-S2 heard no S3-S4 Abdomen: Soft nontender no renal bruit no CVA tenderness no suprapubic fullness Extremity: Mild edema dry skin no peripheral cyanosis pulses palpable Neurological: Alert awake Musculoskeletal: No joint effusion noted Assessment and plan acute kidney injury: Currently admission Rhabdomyolysis improving Ultrasonogram kidney unremarkable stable from a renal standpoint Needs a follow-up appointment office Labs were discussed with patient explained and simple [place] does have good understanding off renal related issues, Will sign off the case please call if needed Objective - Vital Signs Vital signs: Vital Signs - 12hr 08/03/17 08/04/17 08/04/17 22:00 05:33 08:48 Temperature 98.2 F 98.7 F Pulse Rate 63 67 70 Respiratory 20 18 Rate Blood Pressure 126/67 125/71 O2 Sat by Pulse 99 92 98 Oximetry - Lab 07/30/17 04:20 08/04/17 05:08 Most recent lab results Calcium 8.8 mg/dL (8.4-10.2) 08/04/17 05:08 Magnesium 3.20 mg/dL (1.7-2.3) H 07/27/17 10:48 Urine Creatinine 88.9 mg/dL (0.1-20.0) H 07/27/17 23:45 Urine Sodium 69 mmol/L 07/27/17 23:45
--- NOTE | 2017-08-04 10:20 | Magnetic Resonance Report ---
MRI OF THE BRAIN WITHOUT CONTRAST: HISTORY: Stroke, CVA PROCEDURE: Multiplanar, multisequence MR imaging of the brain without IV contrast was performed. FINDINGS: Compared to the MR brain performed 12/13/16. Large chronic infarct in the left posterior cerebral artery territory is again noted and unchanged. There are smaller chronic cortical infarcts in both frontal lobes and inferior left cerebellar hemisphere which are also unchanged. Focal chronic infarct in the left goodrich radiata is also noted and unchanged. There is diffuse volume loss and moderate T2 signal abnormalities throughout the white matter consistent with chronic microangiopathy. No evidence for acute ischemia, hemorrhage or mass. No extra-axial fluid collection. The midline structures are central. The basal cisterns are patent. Normal ventricular size. The orbital cavities and sella turcica demonstrate no abnormality. The visualized paranasal sinuses and mastoid air cells are well aerated. IMPRESSION: Volume loss and chronic white matter changes. Multiple chronic infarcts which are unchanged since 12/13/16. No acute intracranial process identified.
[2017-08-04] MEDS: ASPIRIN PO SCH (11:04)
[2017-08-04] MEDS: KEPPRA PO SCH ×2 (11:04→22:55)
[2017-08-04] MEDS: NORVASC PO SCH (11:04)
[2017-08-04] MEDS: LOVENOX SUB-Q SCH (11:04)
--- NOTE | 2017-08-04 12:20 | Progress Note ---
<ROSIO OSEI - Last Filed: 08/04/17 15:09> Assessment and Plan Assessment and plan: The patient is a 71-year-old male presented with a chief complaint of seizure. care home nurse who states that the patient reportedly had a seizure at 05: 30. The patient was administered Ativan 0.25 mg IM. [facility] and eventually instructed staff to send the patient to the ED for evaluation. EMS was called and upon their arrival at 08:30 the patient reportedly had a second generalized tonic-clonic seizure and was administered a second dose of Ativan 0.25 mg IM. Staff says the patient is normally ambulatory and able to speak. Assessment and Plan Encephalopathy acute Sec to recurrent seizures. Improving. On Keppra. Monitor mental status Repeat MBS ordered to assess pt's ability to tolerate PO diet Seizure Continue PO Keppra MARC (acute kidney injury) Likely Rhabdomyelysis. continue with IV fluids Kidney US negative CK trending down Nephrology cleared for d/c Oropharyngeal dysphagia ST recommended NPO. Pt placed on dobhoff and start on TF MRI brain shows no acute processes. Patient has h/o multiple CVA in the past. Will cont aspirin and statin with TF. discussed with GI, plan to do MBS for now if fails MBS again then will need PEG tube HTN (hypertension - Cont Antihypertensives HLD (hyperlipidemia) - Cont statins (generalized anxiety disorder) Cont Lorazepam Alcohol Use d/o CIWA protocal Leukocytosis Resolved DVT prophylaxis SCDs, Lovenox History Interval history: Patient is awake, alert and oriented to person and place. He denies SOB, CH, NVD Hospitalist Physical - Constitutional Vitals: Temp Pulse Resp BP Pulse Ox 98.7 F 70 18 125/71 98 08/04/17 08:48 08/04/17 11:04 08/04/17 08:48 08/04/17 11:04 08/04/17 08:48 General appearance: Present: no acute distress, well-nourished - EENT Eyes: Present: PERRL, EOM intact ENT: hearing intact, clear oral mucosa - Neck Neck: Present: supple, normal ROM - Respiratory Respiratory effort: normal Respiratory: bilateral: CTA - Cardiovascular Rhythm: regular Heart Sounds: Present: S1 & S2 - Extremities Extremities: no ischemia Extremity abnormal: edema Peripheral Pulses: within normal limits - Abdominal General gastrointestinal: soft, non-tender - Integumentary Integumentary: Present: clear, warm, dry - Psychiatric Psychiatric: appropriate mood/affect, cooperative - Neurologic Neurologic: CNII-XII intact, moves all extremities - Allied Health Allied health notes reviewed: nursing Results - Labs CBC & Chem 7: 07/30/17 04:20 08/04/17 05:08 Labs: Laboratory Last Values WBC 6.2 K/mm3 (4.5-11.0) 07/30/17 04:20 RBC 4.23 M/mm3 (3.65-5.03) 07/30/17 04:20 Hgb 11.6 gm/dl (11.8-15.2) L 07/30/17 04:20 Hct 36.7 % (35.5-45.6) 07/30/17 04:20 MCV 87 fl (84-94) 07/30/17 04:20 MCH 27 pg (28-32) L 07/30/17 04:20 MCHC 32 % (32-34) 07/30/17 04:20 RDW 15.8 % (13.2-15.2) H 07/30/17 04:20 Plt Count 218 K/mm3 (140-440) 07/30/17 04:20 Lymph % (Auto) 10.9 % (13.4-35.0) L 07/28/17 06:32 [place] % (Auto) 10.5 % (0.0-7.3) H 07/28/17 06:32 Eos % (Auto) 0.1 % (0.0-4.3) 07/28/17 06:32 Baso % (Auto) 0.8 % (0.0-1.8) 07/28/17 06:32 Lymph # 1.3 K/mm3 (1.2-5.4) 07/28/17 06:32 [place] # 1.2 K/mm3 (0.0-0.8) H 07/28/17 06:32 Eos # 0.0 K/mm3 (0.0-0.4) 07/28/17 06:32 Baso # 0.1 K/mm3 (0.0-0.1) 07/28/17 06:32 Seg Neutrophils % 77.7 % (40.0-70.0) H 07/28/17 06:32 Seg Neutrophils # 9.1 K/mm3 (1.8-7.7) H 07/28/17 06:32 PT 13.7 Sec. (12.2-14.9) 07/28/17 06:32 INR 1.00 (0.87-1.13) 07/28/17 06:32 Sodium 142 mmol/L (137-145) 08/04/17 05:08 Potassium 3.7 mmol/L (3.6-5.0) 08/04/17 05:08 Chloride 107.6 mmol/L (98-107) H 08/04/17 05:08 Carbon Dioxide 22 mmol/L (22-30) 08/04/17 05:08 Anion Gap 16 mmol/L 08/04/17 05:08 BUN 15 mg/dL (9-20) 08/04/17 05:08 Creatinine 1.1 mg/dL (0.8-1.5) 08/04/17 05:08 Estimated GFR > 60 ml/min 08/04/17 05:08 BUN/Creatinine Ratio 14 % 08/04/17 05:08 Glucose 99 mg/dL (75-100) 08/04/17 05:08 POC Glucose 87 (70-105) 08/04/17 11:44 Calcium 8.8 mg/dL (8.4-10.2) 08/04/17 05:08 Magnesium 3.20 mg/dL (1.7-2.3) H 07/27/17 10:48 Total Bilirubin 0.60 mg/dL (0.1-1.2) 08/01/17 05:05 AST 55 units/L (5-40) H 08/01/17 05:05 ALT 41 units/L (7-56) 08/01/17 05:05 Alkaline Phosphatase 56 units/L (35-129) 08/01/17 05:05 Total Creatine Kinase 717 units/L (55-170) H 08/04/17 05:08 Total Protein 6.3 g/dL (6.3-8.2) 08/01/17 05:05 Albumin 3.4 g/dL (3.9-5) L 08/01/17 05:05 Albumin/Globulin Ratio 1.1 % 08/01/17 05:05 Urine Color Yellow (Yellow) 07/27/17 23:45 Urine Turbidity Clear (Clear) 07/27/17 23:45 Urine pH 6.0 (5.0-7.0) 07/27/17 23:45 Ur Specific [place] 1.012 (1.003-1.030) 07/27/17 23:45 Urine Protein <15 mg/dl mg/dL (Negative) 07/27/17 23:45 Urine Glucose (UA) Neg mg/dL (Negative) 07/27/17 23:45 Urine Ketones Neg mg/dL (Negative) 07/27/17 23:45 Urine Blood Mod (Negative) 07/27/17 23:45 Urine Nitrite Neg (Negative) 07/27/17 23:45 Urine Bilirubin Neg (Negative) 07/27/17 23:45 Urine Urobilinogen < 2.0 mg/dL (<2.0) 07/27/17 23:45 Ur Leukocyte Esterase Neg (Negative) 07/27/17 23:45 Urine WBC (Auto) 2.0 /HPF (0.0-6.0) 07/27/17 23:45 Urine RBC (Auto) 5.0 /HPF (0.0-6.0) 07/27/17 23:45 Urine Mucus Few /HPF 07/27/17 23:45 Urine Creatinine 88.9 mg/dL (0.1-20.0) H 07/27/17 23:45 Urine Sodium 69 mmol/L 07/27/17 23:45 Fraction Sodium Excret 1.5 07/27/17 23:45 - Imaging and Cardiology MRI - head: report reviewed (No acute intracranial process) <RUSSEL JAVIER R - Last Filed: 08/04/17 22:45> Assessment and Plan Assessment and plan: I saw and evaluated the patient. I agree with the findings and the plan of care as documented in the Nurse Practitioner's~note. Hospitalist Physical - Constitutional Vitals: Temp Pulse Resp BP Pulse Ox 99.9 F H 69 18 138/79 100 08/04/17 19:46 08/04/17 19:46 08/04/17 19:46 08/04/17 19:46 08/04/17 19:46 Results - Labs CBC & Chem 7: 07/30/17 04:20 08/04/17 05:08 Labs: Laboratory Last Values WBC 6.2 K/mm3 (4.5-11.0) 07/30/17 04:20 RBC 4.23 M/mm3 (3.65-5.03) 07/30/17 04:20 Hgb 11.6 gm/dl (11.8-15.2) L 07/30/17 04:20 Hct 36.7 % (35.5-45.6) 07/30/17 04:20 MCV 87 fl (84-94) 07/30/17 04:20 MCH 27 pg (28-32) L 07/30/17 04:20 MCHC 32 % (32-34) 07/30/17 04:20 RDW 15.8 % (13.2-15.2) H 07/30/17 04:20 Plt Count 218 K/mm3 (140-440) 07/30/17 04:20 Lymph % (Auto) 10.9 % (13.4-35.0) L 07/28/17 06:32 [place]yer % (Auto) 10.5 % (0.0-7.3) H 07/28/17 06:32 Eos % (Auto) 0.1 % (0.0-4.3) 07/28/17 06:32 Baso % (Auto) 0.8 % (0.0-1.8) 07/28/17 06:32 Lymph # 1.3 K/mm3 (1.2-5.4) 07/28/17 06:32 [place] # 1.2 K/mm3 (0.0-0.8) H 07/28/17 06:32 Eos # 0.0 K/mm3 (0.0-0.4) 07/28/17 06:32 Baso # 0.1 K/mm3 (0.0-0.1) 07/28/17 06:32 Seg Neutrophils % 77.7 % (40.0-70.0) H 07/28/17 06:32 Seg Neutrophils # 9.1 K/mm3 (1.8-7.7) H 07/28/17 06:32 PT 13.7 Sec. (12.2-14.9) 07/28/17 06:32 INR 1.00 (0.87-1.13) 07/28/17 06:32 Sodium 142 mmol/L (137-145) 08/04/17 05:08 Potassium 3.7 mmol/L (3.6-5.0) 08/04/17 05:08 Chloride 107.6 mmol/L (98-107) H 08/04/17 05:08 Carbon Dioxide 22 mmol/L (22-30) 08/04/17 05:08 Anion Gap 16 mmol/L 08/04/17 05:08 BUN 15 mg/dL (9-20) 08/04/17 05:08 Creatinine 1.1 mg/dL (0.8-1.5) 08/04/17 05:08 Estimated GFR > 60 ml/min 08/04/17 05:08 BUN/Creatinine Ratio 14 % 08/04/17 05:08 Glucose 99 mg/dL (75-100) 08/04/17 05:08 POC Glucose 111 (70-105) H 08/04/17 17:26 Calcium 8.8 mg/dL (8.4-10.2) 08/04/17 05:08 Magnesium 3.20 mg/dL (1.7-2.3) H 07/27/17 10:48 Total Bilirubin 0.60 mg/dL (0.1-1.2) 08/01/17 05:05 AST 55 units/L (5-40) H 08/01/17 05:05 ALT 41 units/L (7-56) 08/01/17 05:05 Alkaline Phosphatase 56 units/L (35-129) 08/01/17 05:05 Total Creatine Kinase 717 units/L (55-170) H 08/04/17 05:08 Total Protein 6.3 g/dL (6.3-8.2) 08/01/17 05:05 Albumin 3.4 g/dL (3.9-5) L 08/01/17 05:05 Albumin/Globulin Ratio 1.1 % 08/01/17 05:05 Urine Color Yellow (Yellow) 07/27/17 23:45 Urine Turbidity Clear (Clear) 07/27/17 23:45 Urine pH 6.0 (5.0-7.0) 07/27/17 23:45 Ur Specific [place] 1.012 (1.003-1.030) 07/27/17 23:45 Urine Protein <15 mg/dl mg/dL (Negative) 07/27/17 23:45 Urine Glucose (UA) Neg mg/dL (Negative) 07/27/17 23:45 Urine Ketones Neg mg/dL (Negative) 07/27/17 23:45 Urine Blood Mod (Negative) 07/27/17 23:45 Urine Nitrite Neg (Negative) 07/27/17 23:45 Urine Bilirubin Neg (Negative) 07/27/17 23:45 Urine Urobilinogen < 2.0 mg/dL (<2.0) 07/27/17 23:45 Ur Leukocyte Esterase Neg (Negative) 07/27/17 23:45 Urine WBC (Auto) 2.0 /HPF (0.0-6.0) 07/27/17 23:45 Urine RBC (Auto) 5.0 /HPF (0.0-6.0) 07/27/17 23:45 Urine Mucus Few /HPF 07/27/17 23:45 Urine Creatinine 88.9 mg/dL (0.1-20.0) H 07/27/17 23:45 Urine Sodium 69 mmol/L 07/27/17 23:45 Fraction Sodium Excret 1.5 07/27/17 23:45
--- NOTE | 2017-08-04 18:26 | XRay Report ---
FINAL REPORT EXAM: XR ABDOMEN 1V AP HISTORY: Assess NG tube placement TECHNIQUE: Single AP view chest abdomen PRIORS: None. FINDINGS: AP view of the chest and upper abdomen for tube placement. There is no NG tube identified. Incidentally noted is residual contrast material within the colon. Otherwise no acute abnormality in the visualized portions of the chest new abdomen IMPRESSION: There is no NG tube identified
[2017-08-04] MEDS ORDERED: KEPPRA 750 MG in NACL 0.9% 100 ML IV ONE (22:00)
[2017-08-05 04:40] LABS: Anion Gap 16 mmol/L; BUN/Creatinine Ratio 11; Blood Urea Nitrogen 12 mg/dL (9-20); Calcium 8.6 mg/dL (8.4-10.2); Carbon Dioxide 22 mmol/L (22-30); Glucose 87 mg/dL (75-100); Potassium 3.6 mmol/L (3.6-5.0); Sodium 138 mmol/L (137-145)
[2017-08-05] MEDS: LOVENOX SUB-Q SCH (09:49)
[2017-08-05] MEDS: ASPIRIN PO SCH (10:28)
[2017-08-05] MEDS: NORVASC PO SCH (10:29)
[2017-08-05] MEDS: KEPPRA PO SCH (10:29)
--- NOTE | 2017-08-05 10:32 | Fluoroscopy Report ---
MODIFIED BARIUM SWALLOW History: dysphagia. Findings: Video radiography was provided by the radiologist for speech therapy to assess the swallowing mechanism. Please refer to the formal report by speech therapy. Impression: Successful modified barium swallow.
[2017-08-05 10:56] VITALS: BP 135/63
--- NOTE | 2017-08-05 12:40 | Discharge Summary ---
<ROSIO OSEI - Last Filed: 08/05/17 15:45> Providers - Providers Date of Admission: 07/26/17 17:00 Date of discharge: 08/05/17 Attending physician: RUSSEL JAVIER 07/27/17 13:08 Consult to Physician [CONS] Routine Consulting Provider: BARTOLO MCGOWAN Reason For Exam: MARC Place consult to:: Notified:: Was contact made?: Yes If yes, spoke with:: 07/28/17 07:00 Physical Therapy Evaluation and Treat [CONS] Routine Comment: Reason For Exam: Unsteady gait Speech Therapy Evaluation and Treat [CONS] Routine Reason For Exam: NPO status 07/31/17 22:13 Consult to Dietitian/Nutrition [CONS] Routine Physician Instructions: Assess nutrtn needs, initiate, modify, manage TF Reason For Exam: Reason for Consult: Write/Manage Tube Feeding Reason for Consult: Write/Manage Tube Feeding 07/31/17 22:15 Consult to Dietitian/Nutrition [CONS] Routine Physician Instructions: Reason For Exam: Reason for Consult: Write/Manage Tube Feeding 08/02/17 11:00 Consult to Physician [CONS] Routine Consulting Provider: RAYMOND GILBERT Reason For Exam: PEG placement Place consult to:: ANSWERING SERVICE Notified:: YES Phone number called:: [phone] If yes, spoke with:: JANET Time called:: 11:21 Comment:: ONIEL Primary care physician: ATMOSPHERIC PHYSICS PROFESSOR Hospitalization Condition: Fair Hospital course: The patient is a 71-year-old male presented with a chief complaint of seizure. [facility] nurse who states that the patient reportedly had a seizure at 05: 30. The patient was administered Ativan 0.25 mg IM. The usp physician was paged and eventually instructed staff to send the patient to the ED for evaluation. EMS was called and upon their arrival at 08:30 the patient reportedly had a second generalized tonic-clonic seizure and was administered a second dose of Ativan 0.[address] revealed a stable exam with large old area of encephalomalacia, small old cortical infarcts, and old lacunar infarcts, no acute intracranial abnormlaities. Renal US showed no acute processes and no hydronephrosis. Dobhoff tube was placed for feedings after failed MBS. Subsequent MBS was normal , pt started on pureed diet and tube removed. Brain MRI was normal. Patient was treated with Keppra, Ativan, IVF and resumed home medications. Discharge Diagnosis Seizure Acute Kidney Injury Acute Encephalopathy Oropharyngeal dysphagia HTN HLD Alcohol use Leukocytosis Disposition: DC/TX-03 SNF W [facility] CERT Core Measure Documentation - Palliative Care Palliative Care/ Comfort Measures: Not Applicable - Core Measures Any of the following diagnoses?: none Exam - Constitutional Vitals: Temp Pulse Resp BP Pulse Ox 98.1 F 66 18 135/63 99 08/05/17 10:55 08/05/17 10:55 08/05/17 10:55 08/05/17 10:55 08/05/17 10:55 General appearance: Present: no acute distress - EENT Eyes: Present: PERRL, EOM intact ENT: hearing intact, clear oral mucosa, edentulous - Neck Neck: Present: supple, normal ROM - Respiratory Respiratory effort: normal Respiratory: bilateral: CTA - Cardiovascular Rhythm: regular Heart Sounds: Present: S1 & S2 - Extremities Extremities: pulses symmetrical, No edema Peripheral Pulses: within normal limits - Abdominal General gastrointestinal: Present: soft, non-tender, non-distended, normal bowel sounds Male genitourinary: Present: deferred - Rectal Rectal Exam: deferred - Integumentary Integumentary: Present: clear, warm, dry - Musculoskeletal Musculoskeletal: gait normal, strength equal bilaterally - Psychiatric Psychiatric: appropriate mood/affect, intact judgment & insight - Neurologic Neurologic: CNII-XII intact, moves all extremities - Allied Health Allied health notes reviewed: nursing Plan Activity: fall precautions Weight Bearing Status: Weight Bear as Tolerated Diet: low fat, low cholesterol, low salt, other (pureed diet) Follow up with: PRIMARY CARE, [Primary Care Provider] - 3-5 Days Prescriptions: levETIRAcetam [Keppra TAB] 750 mg PO BID #60 tablet <RUSSEL JAVIER - Last Filed: 08/06/17 12:53> Providers - Providers Date of Admission: 07/26/17 17:00 Attending physician: RUSSEL JAVIER 07/27/17 13:08 Consult to Physician [CONS] Routine Consulting Provider: BARTOLO MCGOWAN Reason For Exam: MARC Place consult to:: Notified:: Was contact made?: Yes If yes, spoke with:: 07/28/17 07:00 Physical Therapy Evaluation and Treat [CONS] Routine Comment: Reason For Exam: Unsteady gait Speech Therapy Evaluation and Treat [CONS] Routine Reason For Exam: NPO status 07/31/17 22:13 Consult to Dietitian/Nutrition [CONS] Routine Physician Instructions: Assess nutrtn needs, initiate, modify, manage TF Reason For Exam: Reason for Consult: Write/Manage Tube Feeding Reason for Consult: Write/Manage Tube Feeding 07/31/17 22:15 Consult to Dietitian/Nutrition [CONS] Routine Physician Instructions: Reason For Exam: Reason for Consult: Write/Manage Tube Feeding 08/02/17 11:00 Consult to Physician [CONS] Routine Consulting Provider: RAYMOND GILBERT Reason For Exam: PEG placement Place consult to:: ANSWERING SERVICE Notified:: YES Phone number called:: [phone] If yes, spoke with:: JANET Time called:: 11:21 Comment:: ONIEL Primary care physician: ATMOSPHERIC PHYSICS PROFESSOR Hospitalization Hospital course: I saw and evaluated the patient. I agree with the findings and the plan of care as documented in the Nurse Practitioner's~note, with the following corrections and additions. Discharge diagnosis; Seizure disorder Acute Kidney Injury, due to vasomotor nephropathy Acute Encephalopathy, due to postictal state Oropharyngeal dysphagia, due to prior CVA HTN, controlled HLD, on statin h/o Alcohol abuse, now on SNF Leukocytosis, reactive Old CVA Exam - Constitutional Vitals: Temp Pulse Resp BP Pulse Ox 98.1 F 66 18 135/63 99 08/05/17 10:55 08/05/17 10:55 08/05/17 10:55 08/05/17 10:55 08/05/17 10:55
== END 2017-08-05 18:33 | disposition home or self-care (01) | DRG 100 ==
LOC: ED 09:54 → 2B-ACE 17:00
PROVIDERS: ADMIT Internal Medicine; ATTEND Internal Medicine
PROC: 0DH67UZ Insertion of Feeding Device into Stomach, Via Natural or Artificial Opening (ICD-10-PCS; principal; 2017-08-02)
DX: G40.909 Epilepsy, unspecified, not intractable, without status epilepticus (principal); N17.0 Acute kidney failure with tubular necrosis; M62.82 Rhabdomyolysis; E87.0 Hyperosmolality and hypernatremia; F41.1 Generalized anxiety disorder; E78.5 Hyperlipidemia, unspecified; R13.12 Dysphagia, oropharyngeal phase; D72.829 Elevated white blood cell count, unspecified; E87.5 Hyperkalemia; I10 Essential (primary) hypertension; Z88.2 Allergy status to sulfonamides; Z88.8 Allergy status to other drugs, medicaments and biological substances; Z88.6 Allergy status to analgesic agent; Z79.82 Long term (current) use of aspirin; Z79.899 Other long term (current) drug therapy; Z72.89 Other problems related to lifestyle; I69.391 Dysphagia following cerebral infarction
CPT/HCPCS: 36415; 70450; 70551; 74000; 74230; 76770; 80048; 80053; 81001; 82550; 82565; 82570; 82962; 83735; 84295; 84300; 85025; 85027; 85610; 93005; 93010; 94760; 96361; 96374; A9270-GY; G8978-GP; G8979-GP; G8996-GN; G8997-GN; J1650; J1953; J2060; J2270; J3480; J7030; J7042; J7070

== ENCOUNTER 2020-05-08 07:32 | Observation (INO) | payer MEDICARE ==
[2020-05-08] MEDS ORDERED: LORazepam 2 MG/ML VIAL IM ONE (07:51)
[2020-05-08] MEDS ORDERED: levETIRAcetam 1000 MG/NS 0.75% 1,000 MG/100 ML BAG IV ONE (07:51)
--- NOTE | 2020-05-08 08:54 | XRay Report ---
CHEST 1 VIEW INDICATION / CLINICAL INFORMATION: sob. COMPARISON: 12/12/2016 FINDINGS: SUPPORT DEVICES: None. HEART / MEDIASTINUM: Stable. LUNGS / PLEURA: No significant pulmonary or pleural abnormality. No pneumothorax. ADDITIONAL FINDINGS: No significant additional findings. IMPRESSION: 1. No acute findings or significant interval change when compared to 12/12/2016. Signer Name: Babatunde Telles MD Signed: 05/08/2020 8:50 AM Workstation Name: [id number]
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
--- NOTE | 2020-05-08 09:12 | Cat Scan Report ---
CT HEAD WITHOUT CONTRAST INDICATION / CLINICAL INFORMATION: Seizures, altered mental status. TECHNIQUE: Axial imaging performed from the skull apex through the skull base without the use of cont rast. Sagittal and coronal reformatted images. All CT scans at this location are performed using CT dose reduction for ALARA by means of automated exposure control. COMPARISON: 07/26/2017 FINDINGS: CEREBRAL PARENCHYMA: Moderate diffuse volume loss is again noted. Extensive hypoattenuation is presen t throughout the white matter and libby consistent with chronic microvascular ischemic change. 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 A focal chronic cortical infarct in the right frontal lobe measures up to 1.8 cm. Chronic lacunar infarcts are identified in the head of the right caudate nucleus and left subinsular cortex. HEMORRHAGE: None. EXTRA-AXIAL SPACES: Normal in size and morphology for the patient's age. VENTRICULAR SYSTEM: Normal in size and morphology for the patient's age. MIDLINE SHIFT OR HERNIATION: None. CEREBELLUM / BRAINSTEM: Diffuse volume loss is stable. Focal chronic left cerebellar infarcts are not ed. There appears to be a new 3.3 x 2.5 cm area of diminished attenuation in the inferior left cerebe llum on image 9 which could represent subacute ischemia. The right cerebellar hemispheres unremarkabl e. CALVARIUM: No significant abnormality. ORBITS: Normal as visualized. PARANASAL SINUSES / MASTOID AIR CELLS: Normal as visualized. SOFT TISSUES of HEAD: No significant abnormality. ADDITIONAL FINDINGS: None. IMPRESSION: Question a new area of subacute ischemia in the left cerebellum as described. Consider further evalua tion with MRI. Extensive volume loss and chronic white matter changes, stable. Multiple chronic infarcts as described which are unchanged since 08-10. Signer Name: Rene Randall Jr, MD Signed: 05/08/2020 9:08 AM Workstation Name: [id number]
[2020-05-08 09:31] LABS: Basophils % (Auto) 0.5 % (0.0-1.8); Eosinophils % (Auto) 0.2 % (0.0-4.3); Hemoglobin 13.1 gm/dl (11.8-15.2); Lymphocytes # (Auto) 0.9 K/mm3 (1.2-5.4); Lymphocytes % (Auto) 12.2 % (13.4-35.0); Mean Corpuscular HGB Conc 35 % (32-34); Mean Corpuscular Volume 87 fl (84-94); Monocytes # (Auto) 0.4 K/mm3 (0.0-0.8); Monocytes % (Auto) 5.6 % (0.0-7.3); Platelet Count 253 K/mm3 (140-440); Red Blood Count 4.38 M/mm3 (3.65-5.03)
[2020-05-08 09:42] LABS: INR 1.03 (0.87-1.13)
[2020-05-08 09:44] LABS: Alanine Aminotransferase 20 units/L (7-56); Albumin 4.1 g/dL (3.9-5); BUN/Creatinine Ratio 9; Blood Urea Nitrogen 12 mg/dL (9-20); Calcium 9.5 mg/dL (8.4-10.2); Hemolysis Index 13
[2020-05-08] MEDS ORDERED: ASPIRIN 300 MG RECT SUPP PR ONE (09:48)
[2020-05-08 09:57] LABS: Chol/HDL Ratio 2.94 %; HDL Cholesterol 59 mg/dL (40-59); LDL Cholesterol,Direct 114 mg/dL (50-130)
[2020-05-08] MEDS ORDERED: METOCLOPRAMIDE 10 MG TAB PO PRN (10:32)
[2020-05-08] MEDS ORDERED: MAGNESIUM HYDROXIDE (MOM) ORAL LIQD UDC PO PRN (10:32)
[2020-05-08] MEDS ORDERED: PROMETHAZINE 25 MG RECT SUPP PR PRN (10:32)
[2020-05-08] MEDS ORDERED: ONDANSETRON 4 MG/2 ML INJ IV PRN (10:32)
--- NOTE | 2020-05-08 10:54 | History and Physical Report ---
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 Upon arrival of EMS personnel the patient was alert and did not develop shortness of breath however he did have witnessed seizure and he 1 mg of Ativan IM and he was transported to [facility] with oxygen via nasal cannula. Patient apparently has repeatedly tested positive for goodrich virus since January hypertension most recent positive test April 12. Per the ED documentation patient is on Keppra 750 mg every 12hours. Work-up in the emergency department included a CTH which showed moderate diffuse volume loss, chronic microvascular ischemic changes, large chronic infarct in the left [employer], focal chronic cortical infarct in the right frontal lobe, chronic lacunar infarct, focal chronic left cerebellar infarct and a questionable new area of subacute ischemia in the inferior left cerebellum. Lab work reveals anion gap metabolic acidosis with CO2 of 13. Patient was placed on counter precautions related to history of COVID-19 infection. Neurology was consulted for seizure and possible new CVA. Patient is a poor historian possibly still in the postictal phase therefore history is obtained from emergency department documentation. Prior hospitalizations reviewed. Home medications have been reconciled. Past History Past Medical History: CAD, hypertension, hyperlipidemia, seizures, stroke Social history: full code Medications and Allergies Allergies Allergy/AdvReac Type Severity Reaction Status Date / Time sulfamethoxazole Allergy Unknown Verified 05/08/20 08:44 [From Bactrim] tramadol [From Ultram] Allergy Unknown Verified 05/08/20 08:44 trimethoprim [From Bactrim] Allergy Unknown Verified 05/08/20 08:44 Home Medications Medication Instructions Recorded Confirmed Last Taken Type RX: Aspirin 325 mg PO QDAY 08/06/16 05/08/20 02/05/17 History RX: amLODIPine 5 mg PO DAILY 08/06/16 05/08/20 02/05/17 History RX: AtorvaSTATin [Lipitor] 40 mg PO HS #30 tablet 08/08/16 05/08/20 02/05/17 Rx levETIRAcetam [Keppra] 100 mg PO DAILY 05/08/20 05/08/20 Unknown History Active Meds: Active Medications Amlodipine Besylate (Amlodipine) 5 mg PO DAILY [facility] Aspirin (Aspirin) 325 mg PO QDAY TONY Atorvastatin Calcium (Lipitor) 40 mg PO HS [facility] Bisacodyl (Dulcolax) 10 mg ND QDAY PRN PRN Reason: Constipation Levetiracetam (Keppra) 100 mg PO DAILY [facility] Magnesium Hydroxide (Milk Of Magnesia) 30 ml PO Q4H PRN PRN Reason: Constipation Metoclopramide HCl (Reglan) 10 mg PO Q6H PRN PRN Reason: Nausea And Vomiting Ondansetron HCl (Zofran) 4 mg IV Q8H PRN PRN Reason: Nausea And Vomiting Promethazine HCl (Phenergan) 25 mg ND Q6H PRN PRN Reason: Nausea And Vomiting Sodium Chloride (Sodium Chloride Flush Syringe 10 Ml) 10 ml IV BID TONY Sodium Chloride (Sodium Chloride Flush Syringe 10 Ml) 10 ml IV PRN PRN PRN Reason: LINE FLUSH Review of Systems ROS unobtainable: due to mental status Exam - Constitutional Vitals: Temp Pulse Resp BP Pulse Ox 98.1 F 103 H 22 137/78 95 05/08/20 08:00 05/08/20 09:00 05/08/20 09:00 05/08/20 09:46 05/08/20 09:46 General appearance: Present: no acute distress - EENT Eyes: Present: PERRL, EOM intact ENT: poor dentition - Neck Neck: Present: normal ROM - Respiratory Respiratory effort: normal Respiratory: bilateral: CTA - Cardiovascular Rhythm: regular Heart Sounds: Present: S1 & S2. Absent: systolic murmur, diastolic murmur - Extremities Extremities: no ischemia, pulses intact, pulses symmetrical, No edema, normal temperature, normal color Peripheral Pulses: within normal limits - Abdominal General gastrointestinal: Present: soft, non-tender, non-distended, normal bowel sounds - Integumentary Integumentary: Present: warm, dry - Musculoskeletal Musculoskeletal: right sided weakness - Psychiatric Psychiatric: cooperative - Neurologic Neurologic: moves all extremities HEART Score - HEART Score History: Moderately suspicious EKG: Normal Age: > 65 Risk factors: 1-2 risk factors Troponin: Troponin T 0.030 ng/mL (0.00-0.029) H 05/08/20 08:29 Troponin: 1-3x normal limit HEART Score: 5 Results - Labs CBC & Chem 7: 05/08/20 08:29 05/08/20 08:29 Labs: Laboratory Last Values WBC 7.6 K/mm3 (4.5-11.0) 05/08/20 08: RBC 4.38 M/mm3 (3.65-5.03) 05/08/20 08: Hgb 13.1 gm/dl (11.8-15.2) 05/08/20 08: Hct 38.0 % (35.5-45.6) 05/08/20 08: MCV 87 fl (84-94) 05/08/20 08: MCH 30 pg (28-32) 05/08/20 08: MCHC 35 % (32-34) H 05/08/20 08: RDW 15.0 % (13.2-15.2) 05/08/20 08: Plt Count 253 K/mm3 (140-440) 05/08/20 08: Lymph % (Auto) 12.2 % (13.4-35.0) L 05/08/20 08: [place] % (Auto) 5.6 % (0.0-7.3) 05/08/20 08: Eos % (Auto) 0.2 % (0.0-4.3) 05/08/20 08: Baso % (Auto) 0.5 % (0.0-1.8) 05/08/20 08: Lymph # 0.9 K/mm3 (1.2-5.4) L 05/08/20 08: [place] # 0.4 K/mm3 (0.0-0.8) 05/08/20 08: Eos # 0.0 K/mm3 (0.0-0.4) 05/08/20 08: Baso # 0.0 K/mm3 (0.0-0.1) 05/08/20 08: Seg Neutrophils % 81.5 % (40.0-70.0) H 05/08/20 08: Seg Neutrophils # 6.2 K/mm3 (1.8-7.7) 05/08/20 08:29 PT 13.6 Sec. (12.2-14.9) 05/08/20 08:29 INR 1.03 (0.87-1.13) 05/08/20 08:29 Sodium 139 mmol/L (137-145) 05/08/20 08:29 Potassium 4.5 mmol/L (3.6-5.0) 05/08/20 08:29 Chloride 102.0 mmol/L (98-107) 05/08/20 08:29 Carbon Dioxide 13 mmol/L (22-30) L 05/08/20 08:29 Anion Gap 29 mmol/L 05/08/20 08:29 BUN 12 mg/dL (9-20) 05/08/20 08:29 Creatinine 1.3 mg/dL (0.8-1.3) 05/08/20 08:29 Estimated GFR > 60 ml/min 05/08/20 08:29 BUN/Creatinine Ratio 9 % 05/08/20 08:29 Glucose 141 mg/dL (75-100) H 05/08/20 08:29 POC Glucose 157 (70-105) H 05/08/20 08:41 Calcium 9.5 mg/dL (8.4-10.2) 05/08/20 08:29 Magnesium 2.80 mg/dL (1.7-2.3) H 05/08/20 08:29 Total Bilirubin 0.20 mg/dL (0.1-1.2) 05/08/20 08:29 AST 19 units/L (5-40) 05/08/20 08:29 ALT 20 units/L (7-56) 05/08/20 08:29 Alkaline Phosphatase 89 units/L (35-129) 05/08/20 08:29 Troponin T 0.030 ng/mL (0.00-0.029) H 05/08/20 08:29 Total Protein 7.5 g/dL (6.3-8.2) 05/08/20 08:29 Albumin 4.1 g/dL (3.9-5) 05/08/20 08:29 Albumin/Globulin Ratio 1.2 % 05/08/20 08:29 Triglycerides 88 mg/dL (2-149) 05/08/20 08:29 Cholesterol 174 mg/dL (50-199) 05/08/20 08:29 LDL Cholesterol Direct 114 mg/dL (50-130) 05/08/20 08:29 HDL Cholesterol 59 mg/dL (40-59) 05/08/20 08:29 Cholesterol/HDL Ratio 2.94 % 05/08/20 08:29 - Imaging and Cardiology CT Scan - head: report reviewed - Diagnostic Impressions Diagnostic Impressions: 05/08 CT head: Moderate diffuse volume loss is again noted. Extensive hypoattenuation is present throughout the white matter and libby consistent with chronic microvascular ischemic change. A large chronic infarct in the left [employer] distribution measures 9.5 x 4.0 cm. A focal chronic cortical infarct in the right frontal lobe measures up to 1.8 cm. Chronic lacunar infarcts are identified in the head of the right caudate nucleus and left subinsular cortex. Diffuse volume loss is stable brainstem. Focal chronic left cerebellar infarcts are noted. There appears to be a new 3.3 x 2.5 cm area of diminished attenuation in the inferior left cerebellum on image 9 which could represent subacute ischemia. The right cerebellar hemispheres unremarkable. Impression: extensive volume loss and chronic white matter changes, stable. Multiple chronic infarcts as described which are unchanged since 08-10. 05/08 CXR shows no acute findings or significant interval change when compared to 12/12/2016. [place]/IV: IV Catheter Type [Right Peripheral IV Forearm] Assessment and Plan - Patient Problems (1) CVA (cerebral vascular accident) Current Visit: Yes Status: Suspected Plan to address problem: 05/08 CTh head shows questionable new area of subacute ischemia in the left ce rebellum with extensive volume loss and chronic white matter changes, stable and multiple chronic infarcts as described which are unchanged since 08-10. Neurology consult Permissive hypertension for 24 to 48 hours CTA head and neck pending MRI per neurology Maintain euglycemia and euthymia PT/ST/OT consult Bedside swallow evaluation pending Restarted on home statin, antihypertensive, aspirin therapy (2) Elevated troponin Current Visit: Yes Status: Acute Plan to address problem: Admit troponin 0.030 Serial cardiac enzymes Per ED documentation :EKG changes noted in the anterior lateral leads with biphasic T waves with mild troponin elevation. No acute intervention recommen ded by cardiology. Rectal aspirin provided. Restarted on home aspirin Serial EKGs -Cardiology consulted, appreciate recommendations (3) Seizure Current Visit: Yes Status: Acute Plan to address problem: Patient has a history of seizures Per ED documentation patient takes 750 mg of Keppra every 12 hours however per home medication list he takes Keppra 500 mg daily Received 1 g Keppra IV in the emergency department Started on 500 of Keppra twice daily Seizure precautions implemented Neurology consult pending (4) Metabolic acidosis, increased anion gap (IAG) Current Visit: Yes Status: Acute Plan to address problem: Patient presented with anion gap of 29 CO2 of 13 Patient started on IV sodium bicarbonate drip for 1 L Trend BMP (5) COVID-19 Current Visit: Yes Status: Chronic Plan to address problem: Per ED recommendation patient was positive for COVID-19 in January 2020 and subsequently has received serial COVID PCR test in his [facility] most recent being April 12, 2020 which was positive Discussed with infectious disease, Dr. Mane who stated patient may be in a state of prolonged shedding. Long-term consequences of COVID-19 infections include PE and DVT and treatment not necessary at this time unless there is evidence of infection. Patient maintained on contact/droplet precautions No acute respiratory distress noted noted at this time We will continue to monitor 05/08 CXR shows no acute findings or significant interval change when compared to 12/12/2016. (6) Renal insufficiency Current Visit: Yes Status: Acute Plan to address problem: Baseline creatinine seems to be 1.0-1.3 range Admit creatinine 1.3 Trend BMP We will monitor closely for worsening renal function Avoid nephrotoxic agents (7) HLD (hyperlipidemia) Current Visit: Yes Status: Chronic Qualifiers: Plan to address problem: Restarted on home statin (8) HTN (hypertension) Current Visit: Yes Status: Chronic Qualifiers: Plan to address problem: In setting of acute CVA, permissive hypertension for 24 to 48 hours Blood pressure monitoring per protocol We will start home medication on 05/09 (9) DVT prophylaxis Current Visit: No Status: Acute Plan to address problem: SCDs to bilateral lower extremities while in bed Subcu heparin
[2020-05-08] MEDS ORDERED: SODIUM BICARBONATE 50 MEQ in SODIUM CHLORIDE 0.9% 1000 ML 1,000 ML IV SCH (12:00)
--- NOTE | 2020-05-08 13:07 | Consultation ---
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 Upon arrival of EMS personnel the patient was alert and did not develop shortness of breath however he did have witnessed seizure and he 1 mg of Ativan IM and he was transported to [facility] with oxygen via nasal cannula. Patient apparently has repeatedly tested positive for goodrich virus since January hypertension most recent positive test April 12. Per the ED documentation patient is on Keppra 750 mg every 12hours. Work-up in the emergency department included a CTH which showed moderate diffuse volume loss, chronic microvascular ischemic changes, large chronic infarct in the left [employer], focal chronic cortical infarct in the right frontal lobe, chronic lacunar infarct, focal chronic left cerebellar infarct and a questionable new area of subacute ischemia in the inferior left cerebellum. Lab work reveals anion gap metabolic acidosis with CO2 of 13. Patient was placed on counter precautions related to history of COVID-19 infection. Neurology was consulted for seizure and possible new CVA. Patient is a poor historian possibly still in the postictal phase therefore history is obtained from emergency department documentation. Prior hospitalizations reviewed. Home medications have been reconciled. According to nursing staff pt. is confused with letter speech out put , move all limbs , with no witnessed seizure since admission to ICU Past History Past Medical History: CAD, hypertension, hyperlipidemia, seizures, stroke Social history: full code Medications and Allergies Allergies Allergy/AdvReac Type Severity Reaction Status Date / Time sulfamethoxazole Allergy Unknown Verified 05/08/20 08:44 [From Bactrim] tramadol [From Ultram] Allergy Unknown Verified 05/08/20 08:44 trimethoprim [From Bactrim] Allergy Unknown Verified 05/08/20 08:44 Home Medications Medication Instructions Recorded Confirmed Last Taken Type Aspirin 325 mg PO QDAY 08/06/16 05/08/20 02/05/17 History amLODIPine 5 mg PO DAILY 08/06/16 05/08/20 02/05/17 History AtorvaSTATin [Lipitor] 40 mg PO HS #30 tablet 08/08/16 05/08/20 02/05/17 Rx levETIRAcetam [Keppra] 100 mg PO DAILY 05/08/20 05/08/20 Unknown History Active Meds: Active Medications Amlodipine Besylate (Amlodipine) 5 mg PO DAILY [facility] Aspirin (Aspirin) 325 mg PO QDAY [facility] Atorvastatin Calcium (Lipitor) 40 mg PO HS [facility] Bisacodyl (Dulcolax) 10 mg [place] QDAY PRN PRN Reason: Constipation Levetiracetam (Keppra) 100 mg PO DAILY [facility] Magnesium Hydroxide (Milk Of Magnesia) 30 ml PO Q4H PRN PRN Reason: Constipation Metoclopramide HCl (Reglan) 10 mg PO Q6H PRN PRN Reason: Nausea And Vomiting Ondansetron HCl (Zofran) 4 mg IV Q8H PRN PRN Reason: Nausea And Vomiting Promethazine HCl (Phenergan) 25 mg [place] Q6H PRN PRN Reason: Nausea And Vomiting Sodium Chloride (Sodium Chloride Flush Syringe 10 Ml) 10 ml IV BID [facility] Sodium Chloride (Sodium Chloride Flush Syringe 10 Ml) 10 ml IV PRN PRN PRN Reason: LINE FLUSH Review of Systems ROS unobtainable: due to mental status Past History Past Medical History: CAD, hypertension, hyperlipidemia, seizures, stroke Social history: full code Medications and Allergies Allergies Allergy/AdvReac Type Severity Reaction Status Date / Time sulfamethoxazole Allergy Unknown Verified 05/08/20 08:44 [From Bactrim] tramadol [From Ultram] Allergy Unknown Verified 05/08/20 08:44 trimethoprim [From Bactrim] Allergy Unknown Verified 05/08/20 08:44 Home Medications Medication Instructions Recorded Confirmed Last Taken Type Aspirin 325 mg PO QDAY 08/06/16 05/08/20 02/05/17 History amLODIPine 5 mg PO DAILY 08/06/16 05/08/20 02/05/17 History AtorvaSTATin [Lipitor] 40 mg PO HS #30 tablet 08/08/16 05/08/20 02/05/17 Rx levETIRAcetam [Keppra] 100 mg PO DAILY 05/08/20 05/08/20 Unknown History Active Meds: Active Medications Amlodipine Besylate (Amlodipine) 5 mg PO DAILY [facility] Aspirin (Aspirin) 325 mg PO QDAY TONY Atorvastatin Calcium (Lipitor) 40 mg PO HS [facility] Bisacodyl (Dulcolax) 10 mg [place] QDAY PRN PRN Reason: Constipation Sodium Bicarbonate 50 meq/ (Sodium Chloride) 1,050 mls @ 100 mls/hr IV DIRECT TONY Stop: 05/08/20 22:29 Levetiracetam (Keppra) 500 mg PO BID [facility] Magnesium Hydroxide (Milk Of Magnesia) 30 ml PO Q4H PRN PRN Reason: Constipation Metoclopramide HCl (Reglan) 10 mg PO Q6H PRN PRN Reason: Nausea And Vomiting Ondansetron HCl (Zofran) 4 mg IV Q8H PRN PRN Reason: Nausea And Vomiting Promethazine HCl (Phenergan) 25 mg [place] Q6H PRN PRN Reason: Nausea And Vomiting Sodium Chloride (Sodium Chloride Flush Syringe 10 Ml) 10 ml IV BID TONY Sodium Chloride (Sodium Chloride Flush Syringe 10 Ml) 10 ml IV PRN PRN PRN Reason: LINE FLUSH Physical Examination - Vital Signs Vital Signs: Vital Signs Temp Pulse Resp BP Pulse Ox 98.1 F 108 H 42 H 172/87 100 05/08/20 08:00 05/08/20 08:00 05/08/20 08:00 05/08/20 08:00 05/08/20 08:00 - Additional Exam Additional Exam: Infiormation about pt. was obtained form ICU nurse pt. is COVID postive , and in ICU Results - Laboratory Findings CBC and BMP: 05/08/20 08:29 05/08/20 08:29 Abnormal Lab Findings: Abnormal Labs 05/08/20 05/08/20 05/08/20 08:29 08:29 08:41 MCHC 35 H Lymph % (Auto) 12.2 L Lymph # 0.9 L Seg Neutrophils % 81.5 H Carbon Dioxide 13 L Glucose 141 H POC Glucose 157 H Magnesium 2.80 H Troponin T 0.030 H 05/08/20 12:27 MCHC Lymph % (Auto) Lymph # Seg Neutrophils % Carbon Dioxide Glucose POC Glucose 112 H Magnesium Troponin T Assessment and Plan Assessment and Plan - Patient Problems (1) Possible new onset CVA (cerebral vascular accident) CT brain showed questionable new area of subacute ischemia in the left cerebellum with extensive volume loss and chronic white matter changes, stable and multiple chronic infarcts as described which are unchanged since 08-10 ? L.PICA,R.Frontal,and multiple lacunar infarct. Permissive hypertension for 24 to 48 hours CTA Brain and neck pending MRI is pending Maintain euglycemia and euthymia PT/ST/OT consult Bedside swallow evaluation Restarted on home statin, antihypertensive, aspirin 325 mg . -ECHO -svp of digital ? AF !!!!!! (2) Elevated troponin Admit troponin 0.030 Serial cardiac enzymes -Echo -EKG (3) Seizure Possible break through seizure , he presented with seizure to ER Per ED documentation patient takes 750 mg of Keppra every 12 hours however per home medication list he takes Keppra 500 mg daily -Possible poor compliance with medications Received 1 g Keppra IV in the emergency department Started on 500 of Keppra twice daily Seizure precautions implemented EEG (4) Metabolic acidosis, increased anion gap (IAG) Patient presented with anion gap of 29 CO2 of 13 possibly related to above (5) COVID-19 Per ED recommendation patient was positive for COVID-19 in January 2020 and subsequently has received serial COVID PCR test in his [facility] most recent being April 12, 2020 which was positive (6) Renal insufficiency Baseline creatinine seems to be 1.0-1.3 range Admit creatinine 1.3 -Avoid nephrotoxic agents (7) HLD (hyperlipidemia) Restarted on home statin -FLP (8) HTN (hypertension) -Keep <140/80 -Allow for 24hours permissve HTN (9) DVT prophylaxis SCDs to bilateral lower extremities while in bed Subcu heparin PLAN 1-CTA brain and neck 2-MRI brain 3-Keppra 500 mg BID 4-ASA 325 mg daily plus plavix 75 mg 5-Lipid profil 6-EEG 7-BP control 8-PT/ST
--- NOTE | 2020-05-08 14:18 | Consultation ---
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 He is previously unknown to our practice. He is COVID-19 PUI and thus HPI is obtained per the chart. Pt presented to the ED after having a seizure around 0400 at the [facility] and EMS was called for shortness of breath. Upon arrival of EMS personnel the patient was alert and did not develop shortness of breath however he did have witnessed seizure and received 1 mg of Ativan IM and he was transported to [facility] with oxygen via nasal cannula. Patient apparently has repeatedly tested positive for COVID since January, most recent positive test April 12. Per the ED documentation patient is on Keppra 750 mg every 12hours. Work-up in the emergency department included a head CT which showed ? new area of subacute ischemia in left cerebellum, chronic changes. Pt was noted to have minimally elevated troponin and abnormal ECG and thus cardiology has been consulted. Past History Past Medical History: CAD, hypertension, hyperlipidemia, seizures, stroke Social history: full code Medications and Allergies Allergies Allergy/AdvReac Type Severity Reaction Status Date / Time sulfamethoxazole Allergy Unknown Verified 05/08/20 08:44 [From Bactrim] tramadol [From Ultram] Allergy Unknown Verified 05/08/20 08:44 trimethoprim [From Bactrim] Allergy Unknown Verified 05/08/20 08:44 Home Medications Medication Instructions Recorded Confirmed Last Taken Type Aspirin 325 mg PO QDAY 08/06/16 05/08/20 02/05/17 History amLODIPine 5 mg PO DAILY 08/06/16 05/08/20 02/05/17 History AtorvaSTATin [Lipitor] 40 mg PO HS #30 tablet 08/08/16 05/08/20 02/05/17 Rx levETIRAcetam [Keppra] 100 mg PO DAILY 05/08/20 05/08/20 Unknown History Active Meds: Active Medications Amlodipine Besylate (Amlodipine) 5 mg PO DAILY [facility] Aspirin (Aspirin) 325 mg PO QDAY TONY Atorvastatin Calcium (Lipitor) 40 mg PO HS TONY Bisacodyl (Dulcolax) 10 mg [place] QDAY PRN PRN Reason: Constipation Sodium Bicarbonate 50 meq/ (Sodium Chloride) 1,050 mls @ 100 mls/hr IV DIRECT TONY Stop: 05/08/20 22:29 Levetiracetam (Keppra) 500 mg PO BID TONY Magnesium Hydroxide (Milk Of Magnesia) 30 ml PO Q4H PRN PRN Reason: Constipation Metoclopramide HCl (Reglan) 10 mg PO Q6H PRN PRN Reason: Nausea And Vomiting Ondansetron HCl (Zofran) 4 mg IV Q8H PRN PRN Reason: Nausea And Vomiting Promethazine HCl (Phenergan) 25 mg [place] Q6H PRN PRN Reason: Nausea And Vomiting Sodium Chloride (Sodium Chloride Flush Syringe 10 Ml) 10 ml IV BID TONY Sodium Chloride (Sodium Chloride Flush Syringe 10 Ml) 10 ml IV PRN PRN PRN Reason: LINE FLUSH Review of Systems ROS unobtainable: due to mental status Physical Examination Vital Signs Temp Pulse Resp BP Pulse Ox 98.1 F 108 H 42 H 172/87 100 05/08/20 08:00 05/08/20 08:00 05/08/20 08:00 05/08/20 08:00 05/08/20 08:00 Narrative exam: agree with physical examination per primary team Results 05/08/20 08:29 05/08/20 08:29 Cardiac Enzymes 05/08/20 Range/Units 08:29 AST 19 (5-40) units/L Coagulation 05/08/20 Range/Units 08:29 PT 13.6 (12.2-14.9) Sec. INR 1.03 (0.87-1.13) Lipids 05/08/20 Range/Units 08:29 Triglycerides 88 (2-149) mg/dL Cholesterol 174 (50-199) mg/dL HDL Cholesterol 59 (40-59) mg/dL Cholesterol/HDL Ratio 2.94 % CBC 05/08/20 Range/Units 08:29 WBC 7.6 (4.5-11.0) K/mm3 RBC 4.38 (3.65-5.03) M/mm3 Hgb 13.1 (11.8-15.2) gm/dl Hct 38.0 (35.5-45.6) % Plt Count 253 (140-440) K/mm3 Lymph # 0.9 L (1.2-5.4) K/mm3 Nolan # 0.4 (0.0-0.8) K/mm3 Eos # 0.0 (0.0-0.4) K/mm3 Baso # 0.0 (0.0-0.1) K/mm3 Comprehensive Metabolic Panel 05/08/20 Range/Units 08:29 Sodium 139 (137-145) mmol/L Potassium 4.5 (3.6-5.0) mmol/L Chloride 102.0 (98-107) mmol/L Carbon Dioxide 13 L (22-30) mmol/L BUN 12 (9-20) mg/dL Creatinine 1.3 (0.8-1.3) mg/dL Glucose 141 H (75-100) mg/dL Calcium 9.5 (8.4-10.2) mg/dL AST 19 (5-40) units/L ALT 20 (7-56) units/L Alkaline Phosphatase 89 (35-129) units/L Total Protein 7.5 (6.3-8.2) g/dL Albumin 4.1 (3.9-5) g/dL - Imaging and Cardiology EKG: report reviewed, image reviewed EKG interpretations - Telemetry EKG Rhythm: Sinus Rhythm - EKG Sinus rhythms and dysrhythmias: sinus rhythm Assessment and Plan Currently stable cardiac status. Minimal troponin elevation appears nonspecific at this time, ECG with nonspecific abnormalities. Cont to trend Tomy and f/u ECG in AM. Plan to obtain echo once COVID is adequately managed. Cont supportive measures and neuro w/u. Will follow. The patient has been seen in conjunction with Dr. Andrea who agrees with the assessment and plan of care. - Patient Problems (1) AMS (altered mental status) Current Visit: Yes Status: Acute (2) Seizure Current Visit: Yes Status: Acute (3) CVA (cerebral vascular accident) Current Visit: Yes Status: Suspected (4) Abnormal EKG Current Visit: Yes Status: Acute (5) Elevated troponin Current Visit: Yes Status: Acute (6) COVID-19 Current Visit: Yes Status: Chronic (7) HLD (hyperlipidemia) Current Visit: Yes Status: Chronic Qualifiers: (8) HTN (hypertension) Current Visit: Yes Status: Chronic Qualifiers: (9) History of CVA (cerebrovascular accident) Current Visit: Yes Status: Chronic (10) History of subarachnoid hemorrhage Current Visit: Yes Status: Chronic
[2020-05-08 15:13] LABS: Creatine Kinase MB 5.6 ng/mL (0.0-4.0)
[2020-05-08] MEDS ORDERED: LORazepam 2 MG/ML VIAL IV PRN (20:57)
[2020-05-08 21:06] LABS: BUN/Creatinine Ratio 11; Blood Urea Nitrogen 13 mg/dL (9-20); Calcium 8.9 mg/dL (8.4-10.2); Hemolysis Index 28
--- NOTE | 2020-05-08 21:09 | Event Note ---
I have seen and examined the patient at the bedside in ICU Patient's chart and medications reviewed, patient was [facility] with witnessed seizures Initial work-up in the emergency room reviewed, Assessment; --Witnessed seizures; --Acute CVA --Recent positive COVID-19 --Metabolic encephalopathy --Non-ST elevation NH --Acute kidney injury --Hypertension --Dyslipidemia Plan: Seizure precautions IV Keppra thousand milligrams twice a day Patient was discharged on 750 Keppra twice a day during last admission IV Ativan as needed for seizures N.p.o. status/patient is drowsy Swallow evaluation Aspirin. Statin Neuro work-up Neurology evaluation noted Cardiology evaluation noted PT OT ST rehab DVT prophylaxis Closely monitor the patient and adjust the management as needed I have reviewed and agree with the nurse practitioners documentation with few changes
[2020-05-08] MEDS ORDERED: levETIRAcetam 500 MG/5 ML ORAL LIQD PO SCH (22:00)
[2020-05-08] MEDS: levETIRAcetam 1,000 MG in DEXTROSE 5% IN WATER 100 ML IV SCH (22:20)
[2020-05-08 22:36] LABS: Bilirubin,Urine NEG (Negative); Blood,Urine SM (Negative); Color,Urine Yellow (Yellow); Mucus,Urine FEW /HPF; Protein,Urine <15 mg/dL mg/dL (Negative); Urobilinogen,Urine < 2.0 mg/dL (<2.0)
[2020-05-09 09:32] LABS: BUN/Creatinine Ratio 13; Blood Urea Nitrogen 14 mg/dL (9-20); Calcium 8.9 mg/dL (8.4-10.2); Hemolysis Index 23
[2020-05-09] MEDS: levETIRAcetam 1,000 MG in DEXTROSE 5% IN WATER 100 ML IV SCH ×2 (09:52→22:49)
[2020-05-09] MEDS: ASPIRIN 325 MG TAB PO SCH (09:52)
[2020-05-09] MEDS: PANTOPRAZOLE 40 MG INJ IV SCH (09:52)
[2020-05-09] MEDS ORDERED: amLODIPine 5 MG TAB PO SCH ×3 (10:00)
[2020-05-09] MEDS ORDERED: levETIRAcetam 500 MG/5 ML ORAL LIQD PO SCH ×2 (10:00)
--- NOTE | 2020-05-09 10:04 | Progress Note ---
<BROOK RITTER - Last Filed: 05/09/20 10:11> Assessment and Plan - Patient Problems (1) Seizure Current Visit: Yes Status: Acute Plan to address problem: Patient has a history of seizures Per ED documentation patient takes 750 mg of Keppra every 12 hours however per home medication list he takes Keppra 500 mg daily Received 1 g Keppra IV in the emergency department Started on 1000g of Keppra BID Seizure precautions implemented Neurology consulted -Ativan PRN -EEG pending (2) CVA (cerebral vascular accident) Current Visit: Yes Status: Suspected Plan to address problem: 05/08 CTh head shows questionable new area of subacute ischemia in the left cerebellum with extensive volume loss and chronic white matter changes, stable and multiple chronic infarcts as described which are unchanged since 08-10. Neurology consult Permissive hypertension for 24 hours CTA head and neck pending MRI brain pending Maintain euglycemia and euthymia PT/ST/OT consult Bedside swallow evaluation passed Restarted on home statin, antihypertensive, aspirin therapy -Placed on plavix (3) Elevated troponin Current Visit: Yes Status: Acute Plan to address problem: Admit troponin 0.030 ->0.097 ->0.061 Serial cardiac enzymes Per ED documentation:EKG changes noted in the anterior lateral leads with biphasic T waves with mild troponin elevation. No acute intervention recommended by cardiology. Rectal aspirin provided. Restarted on home aspirin -EKG PRN -Cardiology consulted, appreciate recommendations (4) Metabolic acidosis, increased anion gap (IAG) Current Visit: Yes Status: Acute Plan to address problem: Patient presented with anion gap of 29 CO2 of 13, improved now AG 19, CO2 22 Patient started on IV sodium bicarbonate drip for 1 L Trend BMP (5) COVID-19 Current Visit: Yes Status: Chronic Plan to address problem: Per ED recommendation patient was positive for COVID-19 in January 2020 and subsequently has received serial COVID PCR test in his group home most recent being April 12, 2020 which was positive Discussed with infectious disease, Dr. Mane who stated patient may be in a state of prolonged shedding. Long-term consequences of COVID-19 infections include PE and DVT and treatment not necessary at this time unless there is evidence of infection. Patient maintained on contact/droplet precautions No acute respiratory distress noted noted at this time We will continue to monitor 05/08 CXR shows no acute findings or significant interval change when compared to 12/12/2016. -05/09 COVID PCR pending (6) Renal insufficiency Current Visit: Yes Status: Acute Plan to address problem: Baseline creatinine seems to be 1.0-1.3 range Admit creatinine 1.3 Trend BMP We will monitor closely for worsening renal function Avoid nephrotoxic agents (7) HLD (hyperlipidemia) Current Visit: Yes Status: Chronic Plan to address problem: Restarted on home statin -05/09 lipid profile: triglyceride 80, cholesterol 174, LDL 114, HDL 59 (8) HTN (hypertension) Current Visit: Yes Status: Chronic Plan to address problem: In setting of acute CVA, permissive hypertension for 24 hours Blood pressure monitoring per protocol Restarted home medication on 05/09 and will increase if necessary (9) DVT prophylaxis Current Visit: No Status: Acute Plan to address problem: SCDs to bilateral lower extremities while in bed Subcu heparin History Interval history: 74-year-old male who is a resident of [facility] with COVID-19 pneumonia, hypertension, STEMI, CAD, CVA, seizures, HLD, history of EtOH abuse and 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 He had a witnessed seizure and he 1 mg of Ativan IM by EMS and he was transported to [facility] with oxygen via nasal cannula. Patient apparently has repeatedly tested positive for goodrich virus since January 2020 and the most recent positive test was April 12. 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 Lab work reveals anion gap metabolic acidosis with CO2 of 13. Patient was placed on contact/droplet precautions related to history of COVID-19 infection. Neurology was consulted for seizure and possible new CVA. This morning his anion gap metabolic acidosis has improved. He is pending MRI of the brain and CTA of the head/neck after proper IV access established. Bedside swallow evaluation performed by the RN showed no coughing with thin liquids. ST evaluation and diet ordered. His troponin trended up to 0.97 but is now 0.061. Possible transfer to the floor today as the patient had no witnessed seizures in the ICU. He is in bilateral wrist restraints due to agitation. However this morning on examination he is pleasant and able to follow commands and does not show any deficits. Hospitalist Physical - Constitutional Vitals: Temp Pulse Resp BP Pulse Ox 97.8 F 74 21 157/92 98 05/09/20 08:00 05/09/20 09:51 05/09/20 09:10 05/09/20 09:51 05/09/20 09:10 General appearance: Present: no acute distress - EENT Eyes: Present: PERRL, EOM intact ENT: hearing intact, poor dentition - Neck Neck: Present: supple, normal ROM - Respiratory Respiratory effort: normal Respiratory: bilateral: CTA - Cardiovascular Rhythm: regular Heart Sounds: Present: S1 & S2. Absent: systolic murmur, diastolic murmur - Extremities Extremities: no ischemia, pulses intact, pulses symmetrical, No edema, normal temperature, normal color, Full ROM Peripheral Pulses: within normal limits - Abdominal General gastrointestinal: soft, non-tender, non-distended, normal bowel sounds - Integumentary Integumentary: Present: clear, warm, dry - Psychiatric Psychiatric: cooperative - Neurologic Neurologic: CNII-XII intact, no focal deficits, moves all extremities - Allied Health Allied health notes reviewed: nursing, PT, ST, OT, social work, case management HEART Score - HEART Score EKG: Normal Age: > 65 Risk factors: 1-2 risk factors Troponin: Troponin T 0.061 ng/mL (0.00-0.029) H D 05/08/20 20:13 Troponin: 1-3x normal limit Results - Labs CBC & Chem 7: 05/08/20 08:29 05/09/20 08:43 Labs: Laboratory Last Values WBC 7.6 K/mm3 (4.5-11.0) 05/08/20 08:29 RBC 4.38 M/mm3 (3.65-5.03) 05/08/20 08:29 Hgb 13.1 gm/dl (11.8-15.2) 05/08/20 08:29 Hct 38.0 % (35.5-45.6) 05/08/20 08:29 MCV 87 fl (84-94) 05/08/20 08: MCH 30 pg (28-32) 05/08/20 08:29 MCHC 35 % (32-34) H 05/08/20 08:29 RDW 15.0 % (13.2-15.2) 05/08/20 08:29 Plt Count 253 K/mm3 (140-440) 05/08/20 08:29 Lymph % (Auto) 12.2 % (13.4-35.0) L 05/08/20 08:29 [place] % (Auto) 5.6 % (0.0-7.3) 05/08/20 08: Eos % (Auto) 0.2 % (0.0-4.3) 05/08/20 08: Baso % (Auto) 0.5 % (0.0-1.8) 05/08/20 08:29 Lymph # 0.9 K/mm3 (1.2-5.4) L 05/08/20 08: [place] # 0.4 K/mm3 (0.0-0.8) 05/08/20 08: Eos # 0.0 K/mm3 (0.0-0.4) 05/08/20 08: Baso # 0.0 K/mm3 (0.0-0.1) 05/08/20 08:29 Seg Neutrophils % 81.5 % (40.0-70.0) H 05/08/20 08:29 Seg Neutrophils # 6.2 K/mm3 (1.8-7.7) 05/08/20 08:29 PT 13.6 Sec. (12.2-14.9) 05/08/20 08:29 INR 1.03 (0.87-1.13) 05/08/20 08:29 Sodium 139 mmol/L (137-145) 05/09/20 08:43 Potassium 4.3 mmol/L (3.6-5.0) 05/09/20 08:43 Chloride 102.6 mmol/L (98-107) 05/09/20 08:43 Carbon Dioxide 22 mmol/L (22-30) 05/09/20 08:43 Anion Gap 19 mmol/L 05/09/20 08:43 BUN 14 mg/dL (9-20) 05/09/20 08:43 Creatinine 1.1 mg/dL (0.8-1.3) 05/09/20 08:43 Estimated GFR > 60 ml/min 05/09/20 08:43 BUN/Creatinine Ratio 13 % 05/09/20 08:43 Glucose 103 mg/dL (75-100) H 05/09/20 08:43 POC Glucose 109 (70-105) H 05/09/20 05:44 Calcium 8.9 mg/dL (8.4-10.2) 05/09/20 08:43 Magnesium 2.80 mg/dL (1.7-2.3) H 05/08/20 08:29 Total Bilirubin 0.20 mg/dL (0.1-1.2) 05/08/20 08:29 AST 19 units/L (5-40) 05/08/20 08:29 ALT 20 units/L (7-56) 05/08/20 08:29 Alkaline Phosphatase 89 units/L (35-129) 05/08/20 08:29 Ammonia 25.0 umol/L (25-60) 05/08/20 14:07 Total Creatine Kinase 336 units/L (55-170) H 05/08/20 20:13 CK-MB (CK-2) 5.0 ng/mL (0.0-4.0) H 05/08/20 20:13 CK-MB (CK-2) Rel Index 1.4 (0-4) 05/08/20 20:13 Troponin T 0.061 ng/mL (0.00-0.029) H D 05/08/20 20:13 Total Protein 7.5 g/dL (6.3-8.2) 05/08/20 08:29 Albumin 4.1 g/dL (3.9-5) 05/08/20 08:29 Albumin/Globulin Ratio 1.2 % 05/08/20 08:29 Triglycerides 88 mg/dL (2-149) 05/08/20 08:29 Cholesterol 174 mg/dL (50-199) 05/08/20 08:29 LDL Cholesterol Direct 114 mg/dL (50-130) 05/08/20 08:29 HDL Cholesterol 59 mg/dL (40-59) 05/08/20 08:29 Cholesterol/HDL Ratio 2.94 % 05/08/20 08:29 Urine Color Yellow (Yellow) 05/08/20 21:00 Urine Turbidity Clear (Clear) 05/08/20 21:00 Urine pH 6.0 (5.0-7.0) 05/08/20 21:00 Ur Specific [place] 1.014 (1.003-1.030) 05/08/20 21:00 Urine Protein <15 mg/dl mg/dL (Negative) 05/08/20 21:00 Urine Glucose (UA) Neg mg/dL (Negative) 05/08/20 21:00 Urine Ketones Neg mg/dL (Negative) 05/08/20 21:00 Urine Blood Sm (Negative) 05/08/20 21:00 Urine Nitrite Neg (Negative) 05/08/20 21:00 Urine Bilirubin Neg (Negative) 05/08/20 21:00 Urine Urobilinogen < 2.0 mg/dL (<2.0) 05/08/20 21:00 Ur Leukocyte Esterase Neg (Negative) 05/08/20 21:00 Urine WBC (Auto) 1.0 /HPF (0.0-6.0) 05/08/20 21:00 Urine RBC (Auto) 1.0 /HPF (0.0-6.0) 05/08/20 21:00 U Epithel Cells (Auto) < 1.0 /HPF (0-13.0) 05/08/20 21:00 Urine Mucus Few /HPF 05/08/20 21:00 Bradford/IV: Voiding Method Condom Catheter IV Catheter Type [Right Peripheral IV Forearm] Active Medications - Current Medications Current Medications: Generic Name Dose Route Start Last Admin Trade Name Freq PRN Reason Stop Dose Admin Amlodipine Besylate 10 mg 05/09/20 10:00 Amlodipine PO DAILY [facility] Aspirin 325 mg 05/09/20 10:00 05/09/20 09:52 Aspirin PO 325 mg QDAY TONY Administration Atorvastatin Calcium 40 mg 05/08/20 22:00 05/08/20 22:30 Lipitor PO Not Given HS [facility] Bisacodyl 10 mg 05/08/20 10:32 Dulcolax [place] QDAY PRN Constipation Clopidogrel Bisulfate 75 mg 05/09/20 10:00 Plavix PO QDAY [facility] Levetiracetam 1,000 mg/ 110 mls @ 400 mls/hr 05/08/20 22:00 05/09/20 09:52 Dextrose IV 400 mls/hr Q12HR TONY Administration Lorazepam 2 mg 05/08/20 20:57 Ativan IV Q1H PRN Seizures Magnesium Hydroxide 30 ml 05/08/20 10:32 Milk Of Magnesia PO Q4H PRN Constipation Metoclopramide HCl 10 mg 05/08/20 10:32 Reglan PO Q6H PRN Nausea And Vomiting Ondansetron HCl 4 mg 05/08/20 10:32 Zofran IV Q8H PRN Nausea And Vomiting Pantoprazole Sodium 40 mg 05/09/20 10:00 05/09/20 09:52 Protonix IV 40 mg QDAY TONY Administration Promethazine HCl 25 mg 05/08/20 10:32 Phenergan [place] Q6H PRN Nausea And Vomiting Sodium Chloride 10 ml 05/08/20 22:00 05/09/20 09:53 Sodium Chloride Flush Syringe 10 Ml IV 10 ml BID TONY Administration Sodium Chloride 10 ml 05/08/20 10:32 Sodium Chloride Flush Syringe 10 Ml IV PRN PRN LINE FLUSH <RUSSEL JAVIER R - Last Filed: 05/09/20 16:11> Assessment and Plan Assessment and plan: I saw and evaluated the patient. I agree with the findings and the plan of care as documented in the Nurse Practitioner's~note, with the following corrections and additions. Repeat COVID-19 test is positive, [facility] with contact isolation and droplet precaution Follow CTA head and neck that recommended by the neurology We will also follow 2D echocardiogram result Hospitalist Physical - Constitutional Vitals: Temp Pulse Resp BP Pulse Ox 98.0 F 74 21 123/84 94 05/09/20 12:00 05/09/20 15:00 05/09/20 15:00 05/09/20 15:00 05/09/20 15:00 HEART Score - HEART Score Troponin: Troponin T 0.061 ng/mL (0.00-0.029) H D 05/08/20 20:13 Results - Labs CBC & Chem 7: 05/08/20 08:29 05/09/20 08:43 Labs: Laboratory Last Values WBC 7.6 K/mm3 (4.5-11.0) 05/08/20 08:29 RBC 4.38 M/mm3 (3.65-5.03) 05/08/20 08: Hgb 13.1 gm/dl (11.8-15.2) 05/08/20 08: Hct 38.0 % (35.5-45.6) 05/08/20 08: MCV 87 fl (84-94) 05/08/20 08: MCH 30 pg (28-32) 05/08/20 08: MCHC 35 % (32-34) H 05/08/20 08: RDW 15.0 % (13.2-15.2) 05/08/20 08:29 Plt Count 253 K/mm3 (140-440) 05/08/20 08: Lymph % (Auto) 12.2 % (13.4-35.0) L 05/08/20 08: [place] % (Auto) 5.6 % (0.0-7.3) 05/08/20 08: Eos % (Auto) 0.2 % (0.0-4.3) 05/08/20 08: Baso % (Auto) 0.5 % (0.0-1.8) 05/08/20 08: Lymph # 0.9 K/mm3 (1.2-5.4) L 05/08/20 08: [place] # 0.4 K/mm3 (0.0-0.8) 05/08/20 08: Eos # 0.0 K/mm3 (0.0-0.4) 05/08/20 08: Baso # 0.0 K/mm3 (0.0-0.1) 05/08/20 08: Seg Neutrophils % 81.5 % (40.0-70.0) H 05/08/20 08:29 Seg Neutrophils # 6.2 K/mm3 (1.8-7.7) 05/08/20 08: PT 13.6 Sec. (12.2-14.9) 05/08/20 08:29 INR 1.03 (0.87-1.13) 05/08/20 08:29 Sodium 139 mmol/L (137-145) 05/09/20 08:43 Potassium 4.3 mmol/L (3.6-5.0) 05/09/20 08:43 Chloride 102.6 mmol/L (98-107) 05/09/20 08:43 Carbon Dioxide 22 mmol/L (22-30) 05/09/20 08:43 Anion Gap 19 mmol/L 05/09/20 08:43 BUN 14 mg/dL (9-20) 05/09/20 08:43 Creatinine 1.1 mg/dL (0.8-1.3) 05/09/20 08:43 Estimated GFR > 60 ml/min 05/09/20 08:43 BUN/Creatinine Ratio 13 % 05/09/20 08:43 Glucose 103 mg/dL (75-100) H 05/09/20 08:43 POC Glucose 126 (70-105) H 05/09/20 13:30 Calcium 8.9 mg/dL (8.4-10.2) 05/09/20 08:43 Magnesium 2.80 mg/dL (1.7-2.3) H 05/08/20 08:29 Total Bilirubin 0.20 mg/dL (0.1-1.2) 05/08/20 08:29 AST 19 units/L (5-40) 05/08/20 08:29 ALT 20 units/L (7-56) 05/08/20 08:29 Alkaline Phosphatase 89 units/L (35-129) 05/08/20 08:29 Ammonia 25.0 umol/L (25-60) 05/08/20 14:07 Total Creatine Kinase 336 units/L (55-170) H 05/08/20 20:13 CK-MB (CK-2) 5.0 ng/mL (0.0-4.0) H 05/08/20 20:13 CK-MB (CK-2) Rel Index 1.4 (0-4) 05/08/20 20:13 Troponin T 0.061 ng/mL (0.00-0.029) H D 05/08/20 20:13 Total Protein 7.5 g/dL (6.3-8.2) 05/08/20 08:29 Albumin 4.1 g/dL (3.9-5) 05/08/20 08:29 Albumin/Globulin Ratio 1.2 % 05/08/20 08:29 Triglycerides 88 mg/dL (2-149) 05/08/20 08:29 Cholesterol 174 mg/dL (50-199) 05/08/20 08:29 LDL Cholesterol Direct 114 mg/dL (50-130) 05/08/20 08:29 HDL Cholesterol 59 mg/dL (40-59) 05/08/20 08:29 Cholesterol/HDL Ratio 2.94 % 05/08/20 08:29 Urine Color Yellow (Yellow) 05/08/20 21:00 Urine Turbidity Clear (Clear) 05/08/20 21:00 Urine pH 6.0 (5.0-7.0) 05/08/20 21:00 Ur Specific [place] 1.014 (1.003-1.030) 05/08/20 21:00 Urine Protein <15 mg/dl mg/dL (Negative) 05/08/20 21:00 Urine Glucose (UA) Neg mg/dL (Negative) 05/08/20 21:00 Urine Ketones Neg mg/dL (Negative) 05/08/20 21:00 Urine Blood Sm (Negative) 05/08/20 21:00 Urine Nitrite Neg (Negative) 05/08/20 21:00 Urine Bilirubin Neg (Negative) 05/08/20 21:00 Urine Urobilinogen < 2.0 mg/dL (<2.0) 05/08/20 21:00 Ur Leukocyte Esterase Neg (Negative) 05/08/20 21:00 Urine WBC (Auto) 1.0 /HPF (0.0-6.0) 05/08/20 21:00 Urine RBC (Auto) 1.0 /HPF (0.0-6.0) 05/08/20 21:00 U Epithel Cells (Auto) < 1.0 /HPF (0-13.0) 05/08/20 21:00 Urine Mucus Few /HPF 05/08/20 21:00 Coronavirus (PCR) Positive (Negative) A 05/09/20 07:31 Bradford/IV: Voiding Method Condom Catheter IV Catheter Type [Right INT / Saline Lock Antecubital] IV Catheter Type [Right Peripheral IV Forearm] Active Medications - Current Medications Current Medications: Generic Name Dose Route Start Last Admin Trade Name Freq PRN Reason Stop Dose Admin Amlodipine Besylate 5 mg 05/09/20 11:00 05/09/20 11:52 Amlodipine PO 5 mg DAILY TONY Administration Aspirin 325 mg 05/09/20 10:00 05/09/20 09:52 Aspirin PO 325 mg QDAY TONY Administration Atorvastatin Calcium 40 mg 05/08/20 22:00 05/08/20 22:30 Lipitor PO Not Given HS [facility] Bisacodyl 10 mg 05/08/20 10:32 Dulcolax [place] QDAY PRN Constipation Clopidogrel Bisulfate 75 mg 05/09/20 11:00 05/09/20 11:52 Plavix PO 75 mg QDAY TONY Administration Levetiracetam 1,000 mg/ 110 mls @ 400 mls/hr 05/08/20 22:00 05/09/20 09:52 Dextrose IV 400 mls/hr Q12HR TONY Administration Lorazepam 2 mg 05/08/20 20:57 Ativan IV Q1H PRN Seizures Magnesium Hydroxide 30 ml 05/08/20 10:32 Milk Of Magnesia PO Q4H PRN Constipation Metoclopramide HCl 10 mg 05/08/20 10:32 Reglan PO Q6H PRN Nausea And Vomiting Ondansetron HCl 4 mg 05/08/20 10:32 Zofran IV Q8H PRN Nausea And Vomiting Pantoprazole Sodium 40 mg 05/09/20 10:00 05/09/20 09:52 Protonix IV 40 mg QDAY [facility] Administration Promethazine HCl 25 mg 05/08/20 10:32 Phenergan [place] Q6H PRN Nausea And Vomiting Sodium Chloride 10 ml 05/08/20 22:00 05/09/20 09:53 Sodium Chloride Flush Syringe 10 Ml IV 10 ml BID TONY Administration Sodium Chloride 10 ml 05/08/20 10:32 Sodium Chloride Flush Syringe 10 Ml IV PRN PRN LINE FLUSH
--- NOTE | 2020-05-09 11:29 | Progress Note ---
Assessment and Plan Currently stable cardiac status. Minimal troponin elevation appears nonspecific at this time, ECG with nonspecific abnormalities. Plan to obtain echo once COVID is adequately managed. Cont supportive measures and neuro w/u. The patient has been seen in conjunction with Dr. Andrea who agrees with the assessment and plan of care. - Patient Problems (1) AMS (altered mental status) Current Visit: Yes Status: Acute (2) Seizure Current Visit: Yes Status: Acute (3) CVA (cerebral vascular accident) Current Visit: Yes Status: Suspected (4) Abnormal EKG Current Visit: Yes Status: Acute (5) Elevated troponin Current Visit: Yes Status: Acute (6) COVID-19 Current Visit: Yes Status: Chronic (7) HLD (hyperlipidemia) Current Visit: Yes Status: Chronic Qualifiers: (8) HTN (hypertension) Current Visit: Yes Status: Chronic Qualifiers: (9) History of CVA (cerebrovascular accident) Current Visit: Yes Status: Chronic (10) History of subarachnoid hemorrhage Current Visit: Yes Status: Chronic Subjective Date of service: 05/09/20 Principal diagnosis: AMS; seizure; elevated trop Interval history: in SR on tele Objective Last Vital Signs Temp 97.8 F 05/09/20 08:00 Pulse 75 05/09/20 11:00 Resp 26 H 05/09/20 11:00 BP 156/77 05/09/20 11:00 Pulse Ox 96 05/09/20 11:00 - Physical Examination Narrative exam: agree with physical examination per primary team - Labs and Meds Cardiac Enzymes 05/08/20 05/08/20 Range/Units 14:07 20:13 CK-MB (CK-2) 5.6 H 5.0 H (0.0-4.0) ng/mL Comprehensive Metabolic Panel 05/08/20 05/09/20 Range/Units 20:13 08:43 Sodium 140 139 (137-145) mmol/L Potassium 4.6 4.3 (3.6-5.0) mmol/L Chloride 103.7 102.6 (98-107) mmol/L Carbon Dioxide 21 L D 22 (22-30) mmol/L BUN 13 14 (9-20) mg/dL Creatinine 1.2 1.1 (0.8-1.3) mg/dL Glucose 109 H 103 H (75-100) mg/dL Calcium 8.9 8.9 (8.4-10.2) mg/dL - Imaging and Cardiology EKG: report reviewed, image reviewed - EKG Sinus rhythms and dysrhythmias: sinus rhythm
[2020-05-09] MEDS: CLOPIDOGREL 75 MG TAB PO SCH (11:52)
[2020-05-09] MEDS: amLODIPine 5 MG TAB PO SCH (11:52)
[2020-05-09] MEDS ORDERED: LORazepam 2 MG/ML VIAL IV PRN (20:46)
[2020-05-10] MEDS: levETIRAcetam 1,000 MG in DEXTROSE 5% IN WATER 100 ML IV SCH (10:06)
[2020-05-10] MEDS: PANTOPRAZOLE 40 MG INJ IV SCH (10:06)
[2020-05-10] MEDS: ASPIRIN 325 MG TAB PO SCH (10:06)
[2020-05-10] MEDS: CLOPIDOGREL 75 MG TAB PO SCH (10:06)
--- NOTE | 2020-05-10 10:19 | Discharge Summary ---
<BROOK RITTERGina - Last Filed: 05/10/20 13:39> Providers - Providers Date of Admission: 05/08/20 10:09 Date of discharge: 05/10/20 Attending physician: RUSSEL JAVIER 05/08/20 09:59 Consult to Physician [CONS] Urgent Comment: Consulting Provider: JEANE RUIZ Physician Instructions: Reason For Exam: abnl ekg, elevated trop 05/08/20 10:32 Consult to Case Management [CONS] Routine Services Needed at Discharge: Other Notified:: CM Comment:: resides at [place] Consult to Physician [CONS] Routine Comment: Consulting Provider: MICHAEL ALLEN Physician Instructions: Reason For Exam: seizure,CVA Occupational Therapy Evaluate and Treat [CONS] Routine Comment: Reason For Exam: Neuro deficits Occupational Therapy Evaluate and Treat [CONS] Routine Comment: Reason For Exam: Neuro deficits Physical Therapy Evaluation and Treat [CONS] Routine Comment: Reason For Exam: Neuro deficits Physical Therapy Evaluation and Treat [CONS] Routine Comment: Reason For Exam: Neuro deficits 05/09/20 09:57 Speech Therapy Evaluation and Treat [CONS] Routine Reason For Exam: possible CVA Primary care physician: GALEN PRICE Hospitalization Condition: Stable Pertinent studies: 05/08 CXR shows no acute findings or significant interval change when compared to 12/12/2016. 05/08 CTH shows moderate diffuse volume loss is again noted. Extensive hypoattenuation is present throughout the white matter and libby consistent with chronic microvascular ischemic change. A large chronic infarct in the left [employer] distribution measures 9.5 x 4.0 cm. A focal chronic cortical infarct in the right frontal lobe measures up to 1.8 cm. Chronic lacunar infarcts are identified in the head of the right caudate nucleus and left subinsular cortex. Diffuse volume loss is stable in cerebellum/brainstem. Focal chronic left cerebellar infarcts are noted. There appears to be a new 3.3 x 2.5 cm area of diminished attenuation in the inferior left cerebellum on image 9 which could represent subacute ischemia. The right cerebellar hemispheres unremarkable. IMPRESSION: Question a new area of subacute ischemia in the left cerebellum as described. Consider further evaluation with MRI. Extensive volume loss and chronic white matter changes, stable. Multiple chronic infarcts as described which are unchanged since 08-10. 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 He had a witnessed seizure and he 1 mg of Ativan IM by EMS and he was transported to [facility] with oxygen via nasal cannula. Patient apparently has repeatedly tested positive for goodrich virus since January 2020 and the most recent positive test was April 12. Work-up in the emergency department included a CTH which showed moderate diffuse volume loss, chronic microvascular ischemic changes, large chronic infarct in the left [employer], focal chronic cortical infarct in the right frontal lobe, chronic lacunar infarct, focal chronic left cerebellar infarct and a questionable new area of subacute ischemia in the inferior left cerebellum. Lab work reveals anion gap metabolic acidosis with CO2 of 13. Patient was placed on contact/droplet precautions related to history of COVID-19 infection. Neurology was consulted for seizure and possible new CVA. ST evaluation completed and he will benefit from ST for his aphasia. He will be discharged back to [place] for continued care. Patient COVID PCR on 05/09 was positive. Per cardiology: obtain an echocardiogram once COVID is cleared. Followup with PCP, neurology and cardiology within 1-2 weeks of discharge. He will need to follow-up with outpatient vascular surgery for intervention of his left ICA stenosis. - Patient Problems (1) Seizure Current Visit: Yes Status: Acute Plan to address problem: Patient has a history of seizures Per ED documentation patient takes 750 mg of Keppra every 12 hours however per home medication list he takes Keppra 500 mg daily Will be discharged on 1000g of Keppra BID Will need to f/u with neurology and obtain an outpatient EEG (2) CVA (cerebral vascular accident) Current Visit: Yes Status: Suspected Plan to address problem: -05/08 CTh head shows questionable new area of subacute ischemia in the left cerebellum with extensive volume loss and chronic white matter changes, stable and multiple chronic infarcts as described which are unchanged since 08-10. 05/10 bilateral carotid Dopplers shows right ICA less than 50% stenosis and left ICA with greater than 70% stenosis. Will need to follow-up with a vascular surgeon outpatient for intervention Patient will benefit from ongoing speech and physical therapy Continue statin, dual anticoagulation with aspirin and plavix, statin, and antihypertensive therapy (3) Elevated troponin Current Visit: Yes Status: Acute Plan to address problem: Admit troponin 0.030 ->0.097 ->0.061 Per ED documentation: EKG changes noted in the anterior lateral leads with biphasic T waves with mild troponin elevation. No acute intervention recommended by cardiology. -Will need to f/u with Cardiology for an outpatient echo once Covid clears (4) Metabolic acidosis, increased anion gap (IAG) Current Visit: Yes Status: resolved Plan to address problem: Patient presented with anion gap of 29 CO2 of 13, improved now AG 19, CO2 22 S/P IV sodium bicarbonate drip for 1 L (5) COVID-19 Current Visit: Yes Status: Chronic Plan to address problem: Per ED recommendation patient was positive for COVID-19 in January 2020 and subsequently has received serial COVID PCR test in his [facility] most recent being April 12, 2020 which was positive Discussed with infectious disease, Dr. Mane who stated patient may be in a state of prolonged shedding. Long-term consequences of COVID-19 infections include PE and DVT and treatment not necessary at this time unless there is evidence of infection. Patient maintained on contact/droplet precautions during inpatient stay 05/08 CXR shows no acute findings or significant interval change when compared to 12/12/2016. -05/09 COVID PCR positive (6) Renal insufficiency Current Visit: Yes Status: Acute Plan to address problem: Baseline creatinine seems to be 1.0-1.3 range Admit creatinine 1.3 and DC creatinine is 1.1 (7) HLD (hyperlipidemia) Current Visit: Yes Status: Chronic Plan to address problem: Continue statin therapy -05/09 lipid profile: triglyceride 80, cholesterol 174, LDL 114, HDL 59 (8) HTN (hypertension) Current Visit: Yes Status: Chronic Plan to address problem: Blood pressure monitoring per PCP instructions Continue antihypertensives Disposition: DC/TX-03 [facility] Time spent for discharge: 35 Core Measure Documentation - Palliative Care Palliative Care/ Comfort Measures: Not Applicable - Core Measures Any of the following diagnoses?: stroke, history only - Stroke Discharge Requirements Statin for LDL = or >70 mg/dl on DC: Yes Anticoag for atrial fib/atrial flutter: Not Applicable Antithrombotic for ischemic stroke: Yes Exam - Physical Exam Narrative exam: General appearance: Present: no acute distress - EENT Eyes: Present: PERRL, EOM intact ENT: hearing intact, poor dentition - Neck Neck: Present: supple, normal ROM - Respiratory Respiratory effort: normal Respiratory: bilateral: CTA - Cardiovascular Rhythm: regular Heart Sounds: Present: S1 & S2. Absent: systolic murmur, diastolic murmur - Extremities Extremities: no ischemia, pulses intact, pulses symmetrical, No edema, normal temperature, normal color, Full ROM Peripheral Pulses: within normal limits - Abdominal General gastrointestinal: soft, non-tender, non-distended, normal bowel sounds - Integumentary Integumentary: Present: clear, warm, dry - Psychiatric Psychiatric: cooperative - Neurologic Neurologic: CNII-XII intact, no focal deficits, moves all extremities - Allied Health Allied health notes reviewed: nursing, PT, ST, OT, social work, case management - Constitutional Vitals: Temp Pulse Resp BP Pulse Ox 97.9 F 84 18 138/79 95 05/10/20 04:46 05/10/20 04:46 05/10/20 04:46 05/10/20 04:46 05/10/20 04:46 General appearance: Present: no acute distress - EENT Eyes: Present: PERRL, EOM intact ENT: hearing intact, poor dentition - Neck Neck: Present: supple, normal ROM - Respiratory Respiratory effort: normal Respiratory: bilateral: CTA - Cardiovascular Rhythm: regular Heart Sounds: Present: S1 & S2. Absent: systolic murmur, diastolic murmur - Extremities Extremities: no ischemia, pulses intact, pulses symmetrical, No edema, normal temperature, Full ROM Peripheral Pulses: within normal limits - Abdominal General gastrointestinal: Present: soft, non-tender, non-distended, normal bowel sounds - Integumentary Integumentary: Present: clear, warm, dry - Musculoskeletal Musculoskeletal: strength equal bilaterally - Psychiatric Psychiatric: cooperative - Allied Health Allied health notes reviewed: nursing, PT, ST, case management Plan Activity: advance as tolerated, no driving until cleared by PCP Diet: low fat, low cholesterol, low salt, diabetic, per dietitian instruction, other Special Instructions: record daily BP diary, physical therapy, occupational therapy Additional Instructions: Care is being transferred to [place] [facility]. Follow up with your PCP, neurology for an EEG, and cardiology for an echocardiogram once your covid clears. Present to the nearest ED or contact your PCP if you experience worsening symptoms. Follow up with: EMILY EAGLE MD [Staff Physician] - 7 Days GALEN PRICE MD [Primary Care Provider] - 3-5 Days MIRTA MAZARIEGOS MD [Staff Physician] - 7 Days ALTON GRIFFIN MD [Staff Physician] - 7 Days Prescriptions: amLODIPine 5 mg PO DAILY #30 tab Aspirin 325 mg PO QDAY #30 tablet levETIRAcetam [Keppra] 1,000 mg PO BID 30 Days udc AtorvaSTATin [Lipitor] 40 mg PO HS #30 tablet Clopidogrel [Plavix] 75 mg PO QDAY #30 tablet Pantoprazole [Protonix TAB] 40 mg PO DAILY #30 tablet <RUSSEL JAVIER - Last Filed: 05/11/20 08:03> Providers - Providers Date of Admission: 05/08/20 10:09 Attending physician: RUSSEL JAVIER 05/08/20 09:59 Consult to Physician [CONS] Urgent Comment: Consulting Provider: JEANE RUIZ Physician Instructions: Reason For Exam: abnl ekg, elevated trop 05/08/20 10:32 Consult to Case Management [CONS] Routine Services Needed at Discharge: Other Notified:: CM Comment:: resides at [place] Consult to Physician [CONS] Routine Comment: Consulting Provider: MICHAEL ALLEN Physician Instructions: Reason For Exam: seizure,CVA Occupational Therapy Evaluate and Treat [CONS] Routine Comment: Reason For Exam: Neuro deficits Occupational Therapy Evaluate and Treat [CONS] Routine Comment: Reason For Exam: Neuro deficits Physical Therapy Evaluation and Treat [CONS] Routine Comment: Reason For Exam: Neuro deficits Physical Therapy Evaluation and Treat [CONS] Routine Comment: Reason For Exam: Neuro deficits 05/09/20 09:57 Speech Therapy Evaluation and Treat [CONS] Routine Reason For Exam: possible CVA Primary care physician: GALEN PRICE Hospitalization Hospital course: I saw and evaluated the patient. I agree with the findings and the plan of care as documented in the Nurse Practitioner's~note, with the following corrections and additions. MRI brain, CTA head/neck could not be obtained as History could not be verified with family members. Patient did not have focal deficits. Cardiology recommended 2d echo when negative for covid as outpt. Patient tolerated puree diet with speech therapist. He was discharged to SNF in stable condition. Exam - Constitutional Vitals: Temp Pulse Resp BP Pulse Ox 98.3 F 92 H 18 151/79 94 05/10/20 11:39 05/10/20 11:39 05/10/20 11:39 05/10/20 11:39 05/10/20 11:39 Plan Diet: low fat, low cholesterol, low salt, other (Puree with Honey liquid via tsp, meds crushed in puree, STRICT ASPIRATION PRECAUTIONS. ) Additional Instructions: Diet: Puree with Honey liquid via tsp, meds crushed in puree, STRICT ASPIRATION PRECAUTIONS. F/u with vascular surgeon for left ICA moderate to severe stenosis.
[2020-05-10] MEDS: amLODIPine 5 MG TAB PO SCH (10:21)
--- NOTE | 2020-05-10 10:56 | Progress Note ---
Assessment and Plan Currently stable cardiac status. Minimal troponin elevation appears nonspecific at this time, ECG with nonspecific abnormalities. Plan to obtain echo once COVID is adequately managed. Cont supportive measures and neuro w/u. The patient has been seen in conjunction with Dr. Andrea who agrees with the assessment and plan of care. - Patient Problems (1) AMS (altered mental status) Current Visit: Yes Status: Acute (2) Seizure Current Visit: Yes Status: Acute (3) CVA (cerebral vascular accident) Current Visit: Yes Status: Suspected (4) Abnormal EKG Current Visit: Yes Status: Acute (5) Elevated troponin Current Visit: Yes Status: Acute (6) COVID-19 Current Visit: Yes Status: Chronic (7) HLD (hyperlipidemia) Current Visit: Yes Status: Chronic Qualifiers: (8) HTN (hypertension) Current Visit: Yes Status: Chronic Qualifiers: (9) History of CVA (cerebrovascular accident) Current Visit: Yes Status: Chronic (10) History of subarachnoid hemorrhage Current Visit: Yes Status: Chronic Subjective Date of service: 05/10/20 Principal diagnosis: AMS; seizure; elevated trop Interval history: per primary RN - patient awake, in no acute distress.Breathing room air Objective Last Vital Signs Temp 98.7 F 05/10/20 10:16 Pulse 87 05/10/20 10:21 Resp 20 05/10/20 10:16 BP 149/75 05/10/20 10:21 Pulse Ox 98 05/10/20 10:16 - Physical Examination Narrative exam: agree with physical examination per primary team - Imaging and Cardiology EKG: report reviewed, image reviewed - EKG Sinus rhythms and dysrhythmias: sinus rhythm
[2020-05-10 12:40] VITALS: BP 151/79
--- NOTE | 2020-05-10 13:29 | Vascular Lab Report ---
"DUPLEX DOPPLER ULTRASOUND CAROTID, BILATERAL INDICATION: possible CVA. FINDINGS: RIGHT CAROTID: Small to moderate amount of atherosclerotic plaque. Right ICA peak systolic velocity: 62 cm/sec. Right Vertebral Artery: Antegrade flow. LEFT CAROTID: Large amount of atherosclerotic plaque. Left ICA peak systolic velocity: 246 cm/sec. End-diastolic velocity 101 Left Vertebral Artery: Antegrade flow. IMPRESSION: 1. Right Internal Carotid Artery: Less than 50% diameter stenosis. 2. Left Internal Carotid Artery: >70% diameter stenosis but less than total occlusion Velocity criteria are extrapolated from diameter data as defined by the Society of Radiologists in Ul trasound Consensus Conference, Radiology 2003; 229;340-346. Degree of Stenosis (%) || ICA PSV (cm/sec) || Plaque estimate (%) || ICA/CCA PSV Ratio Normal <125 None <2.0 <50 <125 <50 <2.0 50-69 125-230 50 2.0-4.0 70 but less than 100 >230 50 >4.0 Near occlusion High, low, or none visible variable Total occlusion None visible; no lumen N/A Signer Name: Jean-Paul Rizo MD Signed: 05/10/2020 1:25 PM Workstation Name: [id number]"
[2020-05-11] MEDS ORDERED: PANTOPRAZOLE 40 MG TAB PO SCH (10:00)
== END 2020-05-10 16:00 ==
LOC: ED 07:32 → IMCU 10:09 → 3A 05-09 15:39
PROVIDERS: ADMIT Internal Medicine; ATTEND Internal Medicine
DX: U07.1 COVID-19 (principal); I21.4 Non-ST elevation (NSTEMI) myocardial infarction; I10 Essential (primary) hypertension; I63.9 Cerebral infarction, unspecified; I25.10 Atherosclerotic heart disease of native coronary artery without angina pectoris; E78.5 Hyperlipidemia, unspecified; I60.9 Nontraumatic subarachnoid hemorrhage, unspecified; G93.41 Metabolic encephalopathy; R29.700 NIHSS score 0; E87.2 Acidosis; N28.9 Disorder of kidney and ureter, unspecified; N17.9 Acute kidney failure, unspecified; R74.8 Abnormal levels of other serum enzymes; R41.82 Altered mental status, unspecified; R56.9 Unspecified convulsions; R79.89 Other specified abnormal findings of blood chemistry; R94.31 Abnormal electrocardiogram [ECG] [EKG]; Z79.82 Long term (current) use of aspirin; Z79.899 Other long term (current) drug therapy
CPT/HCPCS: 36415; 70450; 71045; 80048; 80053; 80061; 81001; 82140; 82550; 82553; 82962; 83735; 84484; 85025; 85610; 92523; 92526; 92610; 93005; 93880; 96365; 96366; 96368; 96372; 96375; 96376; 97161; 97166; 97530; 99285; A9270; C9113; G0378; J1953; J2060; J7030; U0003

== ENCOUNTER 2020-05-10 22:00 | Emergency (ER) | payer MEDICARE ==
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
[2020-05-11 01:49] VITALS: BP 161/80
--- NOTE | 2020-05-11 02:42 | Cat Scan Report ---
CT cervical spine wo con INDICATION: Post-Fall. TECHNIQUE: All CT scans at this location are performed using the following dose modulation technique: Automated exposure control. CONTRAST: None. COMPARISON: None available. FINDINGS: No vertebral compression. Degenerative disc disease is greatest at C2-C5 or changes are mod erate. Mild retrolisthesis is seen at C3 on C4. Multilevel facet DJD is greatest at C3-4 on the and C 5-6 bilaterally where changes are moderately advanced. No soft tissue injury. Bilateral atherosclerotic calcification is seen at the carotid arteries. IMPRESSION: 1. Degenerative disc disease greatest C2-C5 where changes are moderate. 2. Degenerative retrolisthesis C3 on C4. 3. Multilevel facet DJD. 4. Bilateral carotid artery calcification. Signer Name: Mayank Pena MD Signed: 05/11/2020 2:38 AM Workstation Name: [id number]
--- NOTE | 2020-05-11 02:48 | Cat Scan Report ---
CT head/brain wo con INDICATION: Post-Fall. TECHNIQUE: All CT scans at this location are performed using the following dose modulation technique: Automated exposure control. CONTRAST: None. COMPARISON: None available. FINDINGS: The ventricular system remains mildly dilated without midline shift. Mild asymmetric dilata tion remains at the left ventricle. Prominent underlying atrophy and low density within the periventr icular white matter remains typical of small vessel ischemic change. A focus of encephalomalacia is a gain seen predominantly involving the occipital and temporal lobe on the left. No new mass, stroke or hemorrhage. Imaged bones and paranasal sinuses are unremarkable. IMPRESSION: Stable chronic changes of atrophy, small vessel ischemia, mild left ventricular dilatati on and previous left-sided infarct with encephalomalacia. Signer Name: Mayank Pena MD Signed: 05/11/2020 2:43 AM Workstation Name: [id number]
== END 2020-05-11 08:22 | disposition other institution (70) ==
LOC: ED 22:00
DX: S09.90XA Unspecified injury of head, initial encounter (principal); I25.2 Old myocardial infarction; I10 Essential (primary) hypertension; R56.9 Unspecified convulsions; Z87.448 Personal history of other diseases of urinary system; Z98.890 Other specified postprocedural states; Z79.899 Other long term (current) drug therapy; Z88.8 Allergy status to other drugs, medicaments and biological substances; W18.30XA Fall on same level, unspecified, initial encounter; Y93.89 Activity, other specified; Y92.89 Other specified places as the place of occurrence of the external cause; Y99.8 Other external cause status
CPT/HCPCS: 70450; 72125